=== PATIENT | female | born 1965 | race Caucasian/White ===

== ENCOUNTER 2016-08-24 17:55 | Inpatient (IN) | payer BC ==
[~2016-08-24] VITALS: Ht 170.2 cm; Wt 89.3 kg
[2016-08-24 18:03] VITALS: PULSE 103; RESP 26; TEMP 97.1; O2SAT 98
[2016-08-24 18:10] VITALS: BP 172/96; PULSE 99; RESP 26; TEMP 97.8; O2SAT 100
[2016-08-24] MEDS ORDERED: SODIUM CHLOR 0.9% 1000 ML INJ 1,000 ML IV SCH ×2 (18:15→19:36)
[2016-08-24] MEDS ORDERED: DEXT 5%-NACL 0.9% 1000 ML INJ 1,000 ML IV SCH ×2 (18:15→20:00)
[2016-08-24 18:28] LABS: BLOOD GAS VENOUS BASE EXCESS -29.3 mmol/L (-2-2); BLOOD GAS VENOUS HCO3 2 mmol/L (22-26); BLOOD GAS VENOUS O2 CONTENT 20.1 Vol % (9.0-17.0); BLOOD GAS VENOUS O2 HGB SAT 88 % (70-76); BLOOD GAS VENOUS PCO2 15 mmHg (44-48); BLOOD GAS VENOUS PO2 72 mmHg (35-40); TEMP CORR TO 98.6
[2016-08-24 18:29] LABS: BLOOD GAS VENOUS pH 6.77 (7.360-7.400); CRITICAL VALUE YES; DRAW SITE IV; LITER FLOW 2 L/M; OXYGEN DEVICE NASAL CANNULA; STAT NO
[2016-08-24] MEDS: SODIUM CHLOR 0.9% 1000 ML INJ 1,000 ML IV SCH ×5 (18:33→22:49)
--- NOTE | 2016-08-24 18:48 | PD ---
HPI Chief Complaint: Diabetic Time Seen by Provider: 18:15 Travel History International Travel<30 days: Yes Contact w/Intl Traveler<30days: Yes Name of Country Traveled to: [place] (DETAILS LACKING) Traveled to known affect area: No (UNKNOWN) History of Present Illness HPI 51yo F with PMH DM presents to the ED with c/o nausea and elevated blood glucose. Pt has had DKA before. Pt is tachypneic and appears very dry. Kussmaul breathing. Pt has just arrived from a flight today and has not been feeling well. Pt has also been to [place] recently for a mission trip. PFSH Past Medical History Diabetes: Yes Social History Tobacco Use: No Allergies-Medications (Allergen,Severity, Reaction): Coded Allergies: No Known Allergies (Unverified , 08/24/16) Review of Systems Except as stated in HPI: all other systems reviewed are Neg Physical Exam Narrative GENERAL: 51yo F in distress. SKIN: Pt appears very dry. HEAD: Atraumatic. Normocephalic. NECK: Trachea midline. No JVD. CARDIOVASCULAR: Regular rate and rhythm. No murmur appreciated. RESPIRATORY: + accessory muscle use. Clear to auscultation. Breath sounds equal bilaterally. GASTROINTESTINAL: Abdomen soft, non-tender, nondistended. No rebound tenderness or guarding. MUSCULOSKELETAL: No obvious deformities. No clubbing. No cyanosis. No edema. NEUROLOGICAL: Awake and answers questions. No obvious cranial nerve deficits. Motor grossly within normal limits. Pt is moaning but normal speech in between moans. 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 / Telemetry ANNETTA.Q8H (08/24/16 18:15) ^ Insert Iv (08/24/16 18:15) Diet Npo (08/24/16 Dinner) Lipase (08/24/16 18:15) Complete Blood Count With Diff (08/24/16 18:15) Comprehensive Metabolic Panel (08/24/16 18:15) Magnesium (Mg) (08/24/16 18:15) Phosphorus (Po4) (08/24/16 18:15) Beta Hydroxybutyrate (Acetone) (08/24/16 18:15) Sodium Chlor 0.9% 1000 Ml Inj (Ns 1000 M (08/24/16 18:15) Sodium Chlor 0.9% 1000 Ml Inj (Ns 1000 M (08/24/16 18:15) Dext 5%-Nacl 0.9% 1000 Ml Inj (D5w-Ns 10 (08/24/16 18:15) Urinalysis - C+S If Indicated (08/24/16 18:15) Chest, Single Ap (08/24/16 ) Blood Gas Venous (Vbg) (08/24/16 18:15) Lactic Acid (08/24/16 18:51) Ct Abd/Pel W Iv Contrast(Rout) (08/24/16 ) Morphine Inj (Morphine Inj) (08/24/16 19:00) Ondansetron Inj (Zofran Inj) (08/24/16 19:00) Ct Brain W/O Iv Contrast(Rout) (08/24/16 ) Isolation 08,20 (08/24/16 19:11) Blood Culture (08/24/16 19:11) Sodium Bicarbonate 8.4% Inj (Sodium Bica (08/24/16 19:15) [employer] Accountant / Telemetry ANNETTA.Q8H (08/24/16 19:36) ^ Insert Iv (08/24/16 19:36) Sodium Chlor 0.9% 1000 Ml Inj (Ns 1000 M (08/24/16 19:36) Dext 5%-Nacl 0.9% 1000 Ml Inj (D5w-Ns 10 (08/24/16 20:00) Insulin Regular (Iv Infusion) (Novolin R (08/24/16 19:45) Potassium Chlor 40 Meq Premix (Kcl 40 Me (08/24/16 19:45) Potassium Chlor 40 Meq Premix (Kcl 40 Me (08/24/16 19:45) Potassium Chlor 20 Meq Premix (Kcl 20 Me (08/24/16 19:45) Potassium Chlor 20 Meq Premix (Kcl 20 Me (08/24/16 19:45) Potassium Chlor 20 Meq Premix (Kcl 20 Me (08/24/16 19:45) Potassium Chlor 20 Meq Premix (Kcl 20 Me (08/24/16 19:45) Potassium Chlor 20 Meq Premix (Kcl 20 Me (08/24/16 19:45) Potassium Chlor 20 Meq Premix (Kcl 20 Me (08/24/16 19:45) Sodium Bicarbonate 8.4% Inj (Sodium Bica (08/24/16 19:45) Sodium Bicarbonate 8.4% Inj (Sodium Bica (08/24/16 19:45) Sodium Phosphate Inj (Sodium Phosphate I (08/24/16 19:45) Basic Metabolic Panel (Bmp) (08/25/16 06:36) Basic Metabolic Panel (Bmp) (08/25/16 12:36) Basic Metabolic Panel (Bmp) (08/25/16 18:36) Magnesium (Mg) (08/25/16 06:36) Magnesium (Mg) (08/25/16 12:36) Magnesium (Mg) (08/25/16 18:36) Phosphorus (Po4) (08/25/16 06:36) Phosphorus (Po4) (08/25/16 12:36) Phosphorus (Po4) (08/25/16 18:36) Beta Hydroxybutyrate (Acetone) (08/25/16 06:36) Beta Hydroxybutyrate (Acetone) (08/25/16 18:36) Iohexol 350 Inj (Omnipaque 350 Inj) (08/24/16 20:55) Admit Order (Ed Use Only) (08/24/16 ) Protein Corrected Calcium(Pcc) (08/25/16 07:05) Protein Corrected Calcium(Pcc) (08/25/16 13:33) Labs Laboratory Tests Test 08/24/16 08/24/16 08/24/16 08/24/16 18:15 18:25 18:35 19:30 White Blood Count 22.6 TH/MM3 Red Blood Count 5.17 MIL/MM3 Hemoglobin 15.8 GM/DL Hematocrit 50.9 % Mean Corpuscular Volume 98.4 FL Mean Corpuscular Hemoglobin 30.6 PG Mean Corpuscular Hemoglobin 31.1 % Concent Red Cell Distribution Width 14.1 % Platelet Count 241 TH/MM3 Mean Platelet Volume 8.5 FL Neutrophils (%) (Auto) 80.0 % Lymphocytes (%) (Auto) 10.0 % Monocytes (%) (Auto) 7.9 % Eosinophils (%) (Auto) 1.4 % Basophils (%) (Auto) 0.7 % Neutrophils # (Auto) 18.1 TH/MM3 Lymphocytes # (Auto) 2.3 TH/MM3 Monocytes # (Auto) 1.8 TH/MM3 Eosinophils # (Auto) 0.3 TH/MM3 Basophils # (Auto) 0.2 TH/MM3 CBC Comment AUTO DIFF Differential Total Cells 100 Counted Neutrophils % (Manual) 63 % Band Neutrophils % 16 % Lymphocytes % 14 % Monocytes % 6 % Neutrophils # (Manual) 18.1 TH/MM3 Metamyelocytes 1 % Differential Comment FINAL DIFF MANUAL Platelet Estimate NORMAL Platelet Morphology Comment NORMAL Red Cell Morphology Comment NORMAL Sodium Level 136 MEQ/L Potassium Level 3.8 MEQ/L Chloride Level 106 MEQ/L Carbon Dioxide Level 5.0 MEQ/L Anion Gap 25 MEQ/L Blood Urea Nitrogen 23 MG/DL Creatinine 1.31 MG/DL Estimat Glomerular Filtration 43 ML/MIN Rate Random Glucose 363 MG/DL Calcium Level 8.6 MG/DL Phosphorus Level 4.4 MG/DL Magnesium Level 2.6 MG/DL Total Bilirubin 0.4 MG/DL Aspartate Amino Transf 21 U/L (AST/SGOT) Alanine Aminotransferase 19 U/L (ALT/SGPT) Alkaline Phosphatase 115 U/L Total Protein 6.7 GM/DL Albumin 3.6 GM/DL Lipase 8874 U/L B-Hydroxybutyrate 10.40 MMOL/L Blood Gas Puncture Site IV Blood Gas Patient Temperature 98.6 Venous Blood pH 6.77 Venous Blood Partial Pressure 15 mmHg CO2 Venous Blood Partial Pressure 72 mmHg O2 Venous Blood HCO3 2 mmol/L Venous Blood Oxygen Saturation 88 % Venous Blood Oxygen Content 20.1 Vol % Venous Blood Base Excess -29.3 mmol/L Oxygen Delivery Device NASAL CANNULA Blood Gas Liter Flow 2 L/M Urine Color LIGHT-YELLOW Urine Turbidity HAZY Urine pH 5.5 Urine Specific [place] 1.013 Urine Protein 30 mg/dL Urine Glucose (UA) 1000 mg/dL Urine Ketones 150 mg/dL Urine Occult Blood SMALL Urine Nitrite NEG Urine Bilirubin NEG Urine Urobilinogen LESS THAN 2.0 MG/DL Urine Leukocyte Esterase NEG Urine RBC 4 /hpf Urine WBC 4 /hpf Urine Squamous Epithelial <1 /hpf Cells Urine Amorphous Sediment RARE Urine Bacteria RARE /hpf Urine Mucus FEW /lpf Microscopic Urinalysis Comment CULT NOT INDICATED Lactic Acid Level 1.6 mmol/L MDM Medical Decision Making Medical Screen Exam Complete: Yes Emergency Medical Condition: Yes Differential Diagnosis DKA vs. electrolyte abnormality vs. infection Narrative Course 51yo F with DM presents with c/o nausea, sob and appears very dehydrated. Pt is tachycardic at 103bpm. Impression is DKA and DKA protocol was started. 2 liters of NS IVF ordered. VBG, labs ordered. VBG showed severe acidosis with pH of 6.77 and HCO3 of 2. At this point, rest of labs are pending and incoming ED physician is taking over the care of this patient. Pt seen at the end of my shift and send out to next team to follow up labs and admit. Diagnosis Primary Impression: DKA (diabetic ketoacidoses) Qualified Code: E10.10 - Diabetic ketoacidosis without coma associated with type 1 diabetes mellitus Admitting Information Admitting Physician Requests: it Sarah Houston DO Aug 24, 2016 18:48
--- NOTE | 2016-08-24 18:56 | PD ---
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 [email or web address] (08/24/16 18:15) ^ Insert Iv (08/24/16 18:15) Diet Npo (08/24/16 Dinner) Lipase (08/24/16 18:15) Complete Blood Count With Diff (08/24/16 18:15) Comprehensive Metabolic Panel (08/24/16 18:15) Magnesium (Mg) (08/24/16 18:15) Phosphorus (Po4) (08/24/16 18:15) Beta Hydroxybutyrate (Acetone) (08/24/16 18:15) Sodium Chlor 0.9% 1000 Ml Inj (Ns 1000 M (08/24/16 18:15) Sodium Chlor 0.9% 1000 Ml Inj (Ns 1000 M (08/24/16 18:15) Dext 5%-Nacl 0.9% 1000 Ml Inj (D5w-Ns 10 (08/24/16 18:15) Urinalysis - C+S If Indicated (08/24/16 18:15) Chest, Single Ap (08/24/16 ) Blood Gas Venous (Vbg) (08/24/16 18:15) Lactic Acid (08/24/16 18:51) Ct Abd/Pel W Iv Contrast(Rout) (08/24/16 ) Morphine Inj (Morphine Inj) (08/24/16 19:00) Ondansetron Inj (Zofran Inj) (08/24/16 19:00) Ct Brain W/O Iv Contrast(Rout) (08/24/16 ) Isolation 08,20 (08/24/16 19:11) Blood Culture (08/24/16 19:11) Sodium Bicarbonate 8.4% Inj (Sodium Bica (08/24/16 19:15) Foil Stamp Operator / Telemetry [email or web address] (08/24/16 19:36) ^ Insert Iv (08/24/16 19:36) Diet Npo (08/25/16 Breakfast) Sodium Chlor 0.9% 1000 Ml Inj (Ns 1000 M (08/24/16 19:36) Dext 5%-Nacl 0.9% 1000 Ml Inj (D5w-Ns 10 (08/24/16 20:00) Insulin Regular (Iv Infusion) (Novolin R (08/24/16 19:45) Potassium Chlor 40 Meq Premix (Kcl 40 Me (08/24/16 19:45) Potassium Chlor 40 Meq Premix (Kcl 40 Me (08/24/16 19:45) Potassium Chlor 20 Meq Premix (Kcl 20 Me (08/24/16 19:45) Potassium Chlor 20 Meq Premix (Kcl 20 Me (08/24/16 19:45) Potassium Chlor 20 Meq Premix (Kcl 20 Me (08/24/16 19:45) Potassium Chlor 20 Meq Premix (Kcl 20 Me (08/24/16 19:45) Potassium Chlor 20 Meq Premix (Kcl 20 Me (08/24/16 19:45) Potassium Chlor 20 Meq Premix (Kcl 20 Me (08/24/16 19:45) Sodium Bicarbonate 8.4% Inj (Sodium Bica (08/24/16 19:45) Sodium Bicarbonate 8.4% Inj (Sodium Bica (08/24/16 19:45) Sodium Phosphate Inj (Sodium Phosphate I (08/24/16 19:45) Basic Metabolic Panel (Bmp) (08/25/16 00:36) Basic Metabolic Panel (Bmp) (08/25/16 06:36) Basic Metabolic Panel (Bmp) (08/25/16 12:36) Basic Metabolic Panel (Bmp) (08/25/16 18:36) Magnesium (Mg) (08/25/16 00:36) Magnesium (Mg) (08/25/16 06:36) Magnesium (Mg) (08/25/16 12:36) Magnesium (Mg) (08/25/16 18:36) Phosphorus (Po4) (08/25/16 00:36) Phosphorus (Po4) (08/25/16 06:36) Phosphorus (Po4) (08/25/16 12:36) Phosphorus (Po4) (08/25/16 18:36) Beta Hydroxybutyrate (Acetone) (08/25/16 06:36) Beta Hydroxybutyrate (Acetone) (08/25/16 18:36) Iohexol 350 Inj (Omnipaque 350 Inj) (08/24/16 20:55) Admit Order (Ed Use Only) (08/24/16 ) Labs Laboratory Tests Test 08/24/16 08/24/16 08/24/16 08/24/16 18:15 18:25 18:35 19:30 White Blood Count 22.6 TH/MM3 Red Blood Count 5.17 MIL/MM3 Hemoglobin 15.8 GM/DL Hematocrit 50.9 % Mean Corpuscular Volume 98.4 FL Mean Corpuscular Hemoglobin 30.6 PG Mean Corpuscular Hemoglobin 31.1 % Concent Red Cell Distribution Width 14.1 % Platelet Count 241 TH/MM3 Mean Platelet Volume 8.5 FL Neutrophils (%) (Auto) 80.0 % Lymphocytes (%) (Auto) 10.0 % Monocytes (%) (Auto) 7.9 % Eosinophils (%) (Auto) 1.4 % Basophils (%) (Auto) 0.7 % Neutrophils # (Auto) 18.1 TH/MM3 Lymphocytes # (Auto) 2.3 TH/MM3 Monocytes # (Auto) 1.8 TH/MM3 Eosinophils # (Auto) 0.3 TH/MM3 Basophils # (Auto) 0.2 TH/MM3 CBC Comment AUTO DIFF Differential Total Cells 100 Counted Neutrophils % (Manual) 63 % Band Neutrophils % 16 % Lymphocytes % 14 % Monocytes % 6 % Neutrophils # (Manual) 18.1 TH/MM3 Metamyelocytes 1 % Differential Comment FINAL DIFF MANUAL Platelet Estimate NORMAL Platelet Morphology Comment NORMAL Red Cell Morphology Comment NORMAL Sodium Level 136 MEQ/L Potassium Level 3.8 MEQ/L Chloride Level 106 MEQ/L Carbon Dioxide Level 5.0 MEQ/L Anion Gap 25 MEQ/L Blood Urea Nitrogen 23 MG/DL Creatinine 1.31 MG/DL Estimat Glomerular Filtration 43 ML/MIN Rate Random Glucose 363 MG/DL Calcium Level 8.6 MG/DL Phosphorus Level 4.4 MG/DL Magnesium Level 2.6 MG/DL Total Bilirubin 0.4 MG/DL Aspartate Amino Transf 21 U/L (AST/SGOT) Alanine Aminotransferase 19 U/L (ALT/SGPT) Alkaline Phosphatase 115 U/L Total Protein 6.7 GM/DL Albumin 3.6 GM/DL Lipase 8874 U/L B-Hydroxybutyrate 10.40 MMOL/L Blood Gas Puncture Site IV Blood Gas Patient Temperature 98.6 Venous Blood pH 6.77 Venous Blood Partial Pressure 15 mmHg CO2 Venous Blood Partial Pressure 72 mmHg O2 Venous Blood HCO3 2 mmol/L Venous Blood Oxygen Saturation 88 % Venous Blood Oxygen Content 20.1 Vol % Venous Blood Base Excess -29.3 mmol/L Oxygen Delivery Device NASAL CANNULA Blood Gas Liter Flow 2 L/M Urine Color LIGHT-YELLOW Urine Turbidity HAZY Urine pH 5.5 Urine Specific [place] 1.013 Urine Protein 30 mg/dL Urine Glucose (UA) 1000 mg/dL Urine Ketones 150 mg/dL Urine Occult Blood SMALL Urine Nitrite NEG Urine Bilirubin NEG Urine Urobilinogen LESS THAN 2.0 MG/DL Urine Leukocyte Esterase NEG Urine RBC 4 /hpf Urine WBC 4 /hpf Urine Squamous Epithelial <1 /hpf Cells Urine Amorphous Sediment RARE Urine Bacteria RARE /hpf Urine Mucus FEW /lpf Microscopic Urinalysis Comment CULT NOT INDICATED Lactic Acid Level 1.6 mmol/L MDM Supervised Visit with BRIANNA: No Interpretation(s) EKG is limited secondary to motion artifact, normal axis and normal R-wave progression. Sinus tachycardia rate of 102. Intervals within normal limits otherwise. No obvious ST-T segment changes and no changes consistent with hyperkalemia. This is an abnormal EKG. Differential Diagnosis DKA, lactic acidosis, acute abdomen, mild mental status change. Narrative Course Patient care assumed from Dr. Houston at 1900. This is a diabetic patient presents with abdominal pain for the past two days. She states she does not take insulin. pH obtained by VBG prior to my arrival is 6.7. She has received 1L bolus prior to my arrival. Second L bolus in progress. She is moaning and rolling back and forth in stretcher on my arrival. Appears dehydrated (loss of skin turgor, parched mucous membranes, Tachycardia). No hypotension. Patient's labs revealed patient is in rather severe DKA with a pH is 6.7, bicarbonate of 5, anion gap of 25. Lactic acid 1.6. Lipase of 8800. Patient had CT of head and abdomen both of which showed no acute disease. She remains a GCS of 14 for some mild confusion in the emergency department. Patient was given 1 amp bicarbonate, 2 L of fluid, third liter was started at 250 cc an hour. Insulin drip was started, minimally with potassium as the patient's potassium is 3.8. Patient was discussed with Dr. Suh for admission to the ICU. Critical Care Narrative Aggregate critical care time was 35 minutes. Time to perform other separately billable procedures was not included in the critical care time. My time did not include minutes spent treating any other patients simultaneously or on activities that did not directly contribute to the patient's treatment. The services I provided to this patient were to treat and/or prevent clinically significant deterioration that could result in: , disability and organ failure. I provided critical care services requiring my management, as noted below: Chart data review, documentation time, medication orders and management, vital sign assessments/reviewing monitor data, ordering and reviewing lab tests, ordering and interpreting/reviewing x-rays and diagnostic studies, care of the patient and discussion of the patient with the admitting physicians. Diagnosis Primary Impression: DKA (diabetic ketoacidoses) Qualified Code: E10.10 - Diabetic ketoacidosis without coma associated with type 1 diabetes mellitus Admitting Information Admitting Physician Requests: Admit Condition: Critical Matt Wasserman MD Aug 24, 2016 18:55
[2016-08-24] MEDS ORDERED: MORPHINE SULFATE 4 MG/ML INJ IV PUSH ONE (19:00)
[2016-08-24] MEDS ORDERED: ONDANSETRON HCL 4 MG/2 ML VIAL IV PUSH ONE (19:00)
[2016-08-24 19:01] LABS: AUTOMATED NEUTROPHIL # 18.1 TH/MM3 (1.8-7.7); BASOPHIL # 0.2 TH/MM3 (0-0.2); BASOPHIL % 0.7 % (0.0-2.0); EOSINOPHIL # 0.3 TH/MM3 (0-0.4); EOSINOPHIL % 1.4 % (0.0-4.0); HEMATOCRIT 50.9 % (35.0-46.0); LYMPHOCYTE # 2.3 TH/MM3 (1.0-4.8); MEAN CELL VOLUME 98.4 FL (80.0-100.0); MEAN CORPUSCULAR HEMOGLOBIN 30.6 PG (27.0-34.0); MEAN CORPUSCULAR HGB CONC 31.1 % (32.0-36.0); MONO % 7.9 % (0.0-8.0); PLATELET COUNT 241 TH/MM3 (150-450); RED BLOOD COUNT 5.17 MIL/MM3 (4.00-5.30); RED CELL DISTRIBUTION WIDTH 14.1 % (11.6-17.2); WHITE BLOOD COUNT 22.6 TH/MM3 (4.0-11.0)
[2016-08-24 19:09] LABS: BACTERIA, URINE RARE /hpf; BLOOD, URINE SMALL (NEG); COMMENT (UR) CULT NOT INDICATED; CULTURE IF INDICATED CULT NOT INDICATED; GLUCOSE,URINE 1000 mg/dL (NEG); KETONE, URINE 150 mg/dL (NEG); MUCUS URINE FEW /lpf (OCC); NITRITE,URINE NEG (NEG); PH, URINE 5.5 (5.0-8.5); SQUAMOUS EPITHELIAL CELL URINE <1 /hpf (0-5); URINE COLOR LIGHT-YELLOW (YELLW/STRAW)
[2016-08-24] MEDS ORDERED: SODIUM BICARBONATE 8.4% INJ 50 MEQ/50 ML SYR IV PUSH ONE (19:15)
[2016-08-24 19:20] LABS: HEMO FLAGS AUTO DIFF
[2016-08-24 19:24] LABS: ANION GAP 25 MEQ/L (5-15)
[2016-08-24 19:29] LABS: BANDS 16 % (0-6); METAMYELOCYTES 1 % (0-1); NEUTROPHIL # MANUAL DIFF 18.1 TH/MM3 (1.8-7.7); PLATELET ESTIMATE SMEAR NORMAL (NORMAL); PLATELET MORPHOLOGY NORMAL (NORMAL); POLYS (SEG NEUTROPHILS) 63 % (16-70); SCAN/DIFF FINAL DIFF MANUAL; WBC DIFF SAMPLE 100
[2016-08-24 19:33] VITALS: BP 168/96; PULSE 106; RESP 30; O2SAT 100
[2016-08-24 19:35] LABS: ALKALINE PHOSPHATASE 115 U/L (45-117); ALT (GPT) 19 U/L (10-53); AST (GOT) 21 U/L (15-37); BLOOD UREA NITROGEN 23 MG/DL (7-18); CHLORIDE 106 MEQ/L (98-107); GLOMERULAR FILTRATION RATE 43 ML/MIN (>89); MAGNESIUM 2.6 MG/DL (1.5-2.5); POTASSIUM 3.8 MEQ/L (3.5-5.1); SODIUM (NA) 136 MEQ/L (136-145); TOTAL BILIRUBIN ADULT 0.4 MG/DL (0.2-1.0)
[2016-08-24] MEDS ORDERED: POTASSIUM CHLOR 20 MEQ PREMIX 100 ML IV PRN ×12 (19:45→22:00)
[2016-08-24] MEDS ORDERED: SODIUM PHOSPHATE INJ 15 MMOL in SODIUM CHLORIDE 0.9% INJ 100 ML IV PRN ×2 (19:45→22:00)
[2016-08-24] MEDS ORDERED: INSULIN REGULAR (IV INFUSION) 100 UNITS in SODIUM CHLORIDE 0.9% INJ 99 ML IV SCH ×2 (19:45→22:00)
[2016-08-24] MEDS ORDERED: SODIUM BICARBONATE 8.4% SOLN 50 MEQ/50 ML VIAL IV PRN ×4 (19:45→22:00)
[2016-08-24] MEDS ORDERED: POTASSIUM CHLOR 40 MEQ PREMIX 100 ML IV PRN ×4 (19:45→22:00)
--- NOTE | 2016-08-24 19:51 | RADRPT ---
EXAM DATE/TIME: 08/24/2016 18:55 [facility] COMPARISON: No previous studies available for comparison. INDICATIONS : Short of breath. MEDICAL HISTORY : None. SURGICAL HISTORY : None. ENCOUNTER: Initial ACUITY: 1 day PAIN SCORE: Non-responsive. LOCATION: Bilateral chest FINDINGS: The lungs are clear without infiltrate, nodule, or mass. There is no appreciable pleural effusion fo r technique. Heart and mediastinum are unremarkable. The examination is slightly limited due to lorie on artifact. CONCLUSION: No acute cardiopulmonary disease. Jesus Ferreira MD on August 24, 2016 at 19:49 Board Certified Radiologist. This report was verified electronically.
[2016-08-24 20:00] VITALS: BP 138/73; PULSE 108; RESP 18; O2SAT 100
--- NOTE | 2016-08-24 20:53 | RADRPT ---
EXAM DATE/TIME: 08/24/2016 20:35 [facility] COMPARISON: No previous studies available for comparison. INDICATIONS : Altered mental status. RADIATION DOSE: 56.35 CTDIvol (mGy) MEDICAL HISTORY : None SURGICAL HISTORY : None. ENCOUNTER: Initial ACUITY: 1 day PAIN SCALE: 3/10 LOCATION: cranial TECHNIQUE: Multiple contiguous axial images were obtained of the head. Using automated exposure control and adjustment of the mA and/or kV according to patient size, radiation dose was kept as low as reasonably achievable to obtain optimal diagnostic quality images. FINDINGS: There is no evidence for intracranial hemorrhage, mass effect, mass lesions, edema, or extra-axial fl uid collections. The visualized bony structures appear intact. The ventricles are normal size for t he patient's age. There are no signs of acute infarction for technique. CONCLUSION: Unremarkable study. Jesus Ferreira MD on August 24, 2016 at 20:51 Board Certified Radiologist. This report was verified electronically.
[2016-08-24] MEDS ORDERED: IOHEXOL 350 MG/ML 10 ML VIAL (for RAD DIAG) IV ONE (20:55)
[2016-08-24 21:01] VITALS: BP 123/67; PULSE 103; RESP 25; O2SAT 100
[2016-08-24 21:10] VITALS: BP 114/64; PULSE 101; RESP 25; O2SAT 100
--- NOTE | 2016-08-24 21:53 | HHI.HP ---
HPI Service Critical Care Medicine Primary Care Physician Unknown Admission Diagnosis DKA, Severe Diagnosis: Travel History International Travel<30 Days: Yes Contact w/Intl Traveler <30 Da: Yes Name of Country Traveled to: [place] (DETAILS LACKING) Traveled to Known Affected Are: No (UNKNOWN) History of Present Illness Rectal history of type 1 diabetes presents to emergency department complaining of nausea vomiting and abdominal pain also elevated blood glucose. Patient was tachypneic and appeared very drowsy and was intubated by ED physician for an airway protection. 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 of Systems ROS Unable to obtain patient is sedated and intubated Past Family Social History Allergies: Coded Allergies: No Known Allergies (Unverified , 08/24/16) Past Medical History Diabetes insulin-dependent Past Surgical History Unable to obtain Active Ordered Medications Current Medications Medications (Trade) Dose Ordered Sig/Billie Route PRN Reason Start Time Stop Time Status Last Admin Dose Admin Sodium Chloride 1,000 ml @ 250 mls/hr Q4H IV 08/24/16 21:49 Dextrose/Sodium Chloride 1,000 ml @ 200 mls/hr Q5H IV 08/24/16 21:49 Insulin Human Regular 100 units/ Sodium Chloride 100 ml @ 0 mls/hr TITRATE IV 08/24/16 22:00 Potassium Chloride 100 ml @ 100 mls/hr Q1H PRN IV SEE LABEL COMMENTS 08/24/16 22:00 Potassium Chloride 100 ml @ 50 mls/hr Q2H PRN IV SEE LABEL COMMENTS 08/24/16 22:00 Potassium Chloride 100 ml @ 100 mls/hr Q1H PRN IV SEE LABEL COMMENTS 08/24/16 22:00 Potassium Chloride 100 ml @ 100 mls/hr Q1H PRN IV SEE LABEL COMMENTS 08/24/16 22:00 Potassium Chloride 100 ml @ 50 mls/hr Q2H PRN IV SEE LABEL COMMENTS 08/24/16 22:00 Potassium Chloride 100 ml @ 50 mls/hr Q2H PRN IV SEE LABEL COMMENTS 08/24/16 22:00 Potassium Chloride 100 ml @ 50 mls/hr Q2H PRN IV SEE LABEL COMMENTS 08/24/16 22:00 Potassium Chloride (KCl 20 Meq Premix Inj) 100 ml @ 50 mls/hr Q2H PRN IV SEE LABEL COMMENTS 08/24/16 22:00 Sodium Bicarbonate (Sodium Bicarbonate 8.4% Inj) 100 meq UNSCH PRN IV SEE LABEL COMMENTS 08/24/16 22:00 Sodium Bicarbonate 50 meq 50 meq UNSCH PRN IV SEE LABEL COMMENTS 08/24/16 22:00 Sodium Phosphate/ Sodium Chloride (Sodium Phosphate Inj/NS Inj) 105 ml @ 25 mls/hr UNSCH PRN IV SEE LABEL COMMENTS 08/24/16 22:00 Miscellaneous Information 1 [id number] XX 08/24/16 22:00 Chlorhexidine Gluconate (Chlorhexidine 2% Cloth) 3 pack Taper DAILY@04 TOP 08/25/16 04:00 08/21/17 03:59 Chlorhexidine Gluconate 3 pack 3 pack UNSCH PRN TOP HYGIENIC CARE 08/24/16 22:00 Propofol 100 ml @ 0 mls/hr TITRATE IV 08/25/16 02:00 08/25/16 02:10 Midazolam HCl (Versed Inj) 100 ml @ 0 mls/hr TITRATE IV 08/25/16 02:30 Family History Unable to obtain Social History Unable to obtain Physical Exam Vital Signs Vital Signs Date Time Temp Pulse Resp B/P Pulse Ox O2 Delivery O2 Flow Rate FiO2 08/24/16 19:33 106 30 168/96 100 Room Air 08/24/16 18:15 16 99 Nasal Cannula 2 08/24/16 18:10 97.8 99 26 172/96 100 Room Air 08/24/16 18:03 97.1 103 26 98 Laboratory Laboratory Tests Test 08/24/16 08/24/16 08/24/16 08/24/16 18:15 18:25 18:35 19:30 White Blood Count 22.6 Red Blood Count 5.17 Hemoglobin 15.8 Hematocrit 50.9 Mean Corpuscular Volume 98.4 Mean Corpuscular Hemoglobin 30.6 Mean Corpuscular Hemoglobin 31.1 Concent Red Cell Distribution Width 14.1 Platelet Count 241 Mean Platelet Volume 8.5 Neutrophils (%) (Auto) 80.0 Lymphocytes (%) (Auto) 10.0 Monocytes (%) (Auto) 7.9 Eosinophils (%) (Auto) 1.4 Basophils (%) (Auto) 0.7 Neutrophils # (Auto) 18.1 Lymphocytes # (Auto) 2.3 Monocytes # (Auto) 1.8 Eosinophils # (Auto) 0.3 Basophils # (Auto) 0.2 CBC Comment AUTO DIFF Differential Total Cells 100 Counted Neutrophils % (Manual) 63 Band Neutrophils % 16 Lymphocytes % 14 Monocytes % 6 Neutrophils # (Manual) 18.1 Metamyelocytes 1 Differential Comment FINAL DIFF MANUAL Platelet Estimate NORMAL Platelet Morphology Comment NORMAL Red Cell Morphology Comment NORMAL Sodium Level 136 Potassium Level 3.8 Chloride Level 106 Carbon Dioxide Level 5.0 Anion Gap 25 Blood Urea Nitrogen 23 Creatinine 1.31 Estimat Glomerular Filtration 43 Rate Random Glucose 363 Calcium Level 8.6 Phosphorus Level 4.4 Magnesium Level 2.6 Total Bilirubin 0.4 Aspartate Amino Transf 21 (AST/SGOT) Alanine Aminotransferase 19 (ALT/SGPT) Alkaline Phosphatase 115 Total Protein 6.7 Albumin 3.6 Lipase 8874 B-Hydroxybutyrate 10.40 Blood Gas Puncture Site IV Blood Gas Patient Temperature 98.6 Venous Blood pH 6.77 Venous Blood Partial Pressure 15 CO2 Venous Blood Partial Pressure 72 O2 Venous Blood HCO3 2 Venous Blood Oxygen Saturation 88 Venous Blood Oxygen Content 20.1 Venous Blood Base Excess -29.3 Oxygen Delivery Device NASAL CANNULA Blood Gas Liter Flow 2 Urine Color LIGHT-YELLOW Urine Turbidity HAZY Urine pH 5.5 Urine Specific [place] 1.013 Urine Protein 30 Urine Glucose (UA) 1000 Urine Ketones 150 Urine Occult Blood SMALL Urine Nitrite NEG Urine Bilirubin NEG Urine Urobilinogen LESS THAN 2.0 Urine Leukocyte Esterase NEG Urine RBC 4 Urine WBC 4 Urine Squamous Epithelial <1 Cells Urine Amorphous Sediment RARE Urine Bacteria RARE Urine Mucus FEW Microscopic Urinalysis Comment CULT NOT INDICATED Lactic Acid Level 1.6 Date/Time Procedure Status Source Growth 08/24/16 19:30 Aerobic Blood Culture Received Blood Peripheral Pending 08/24/16 19:30 Anaerobic Blood Culture Received Blood Peripheral Pending Result Diagram: 08/24/16 1815 08/24/16 1815 Assessment and Plan Assessment and Plan Respiratory failure - Debated for an airway protection - Start weaning when neurologically improved and acidosis resolved Altered mental status - Metabolic toxic encephalopathy - Severe metabolic acidosis - Due to DKA - Monitor neuro checks - CT head negative DKA - Insulin drip and IV hydration per ICU protocol Leukocytosis - Most probably reactive - Monitor trend - Patient is afebrile we'll hold antibiotics for now DVT GI prophylaxis - Subcutaneous heparin and IV Pepcid Critical Care: The total critical care time was 35 minutes. Time to perform other separately billable procedures was not included in the critical care time. Hector Suh MD Aug 24, 2016 21:53
[2016-08-24] MEDS ORDERED: MISCELLANEOUS NURSING INFORMATION XX SCH (22:00)
[2016-08-24] MEDS ORDERED: CHLORHEXIDINE GLUCONATE 2 % 1 PACK (2 CLOTHS) TOP PRN (22:00)
--- NOTE | 2016-08-24 22:14 | RADRPT ---
EXAM DATE/TIME: 08/24/2016 20:45 [facility] COMPARISON: CT ABDOMEN & PELVIS W CONTRAST, August 24, 2016, 18:47. INDICATIONS : Altered mental status and abdominal pain. IV CONTRAST: 100 cc Omnipaque 350 (iohexol) IV ORAL CONTRAST: No oral contrast ingested. RADIATION DOSE: CTDIvol (mGy) MEDICAL HISTORY : Diabetes mellitus type 1. Pancreatic insufficiency. SURGICAL HISTORY : None. ENCOUNTER: Initial ACUITY: 1 day PAIN SCALE: 4/10 LOCATION: Bilateral lower quadrant TECHNIQUE: Volumetric scanning of the abdomen and pelvis was performed. Using automated exposure control and adjustment of the mA and/or kV according to patient size, radiation dose was kept as low as reasonably achievable to obtain optimal diagnostic quality images. FINDINGS: CT Abdomen: The liver, spleen, pancreas, kidneys, adrenals are unremarkable. There is no evidence for any appreciable pathological adenopathy, free fluid, or bowel obstruction. The examination is sligh tly limited due to motion artifact. There is either motion artifact or 2 small areas of almost 1 cm c onsolidation in the left lower lobe laterally. CT pelvis: There is no evidence for mass, abscess formation, or any significant adenopathy within the pelvis. There is moderate amount of stool throughout the colon. CONCLUSION: There is moderate amount of stool throughout the colon and limited examination due to motion artifact. Possible focal areas of consolidation left lung base versus artifact. Jesus Ferreira MD on August 24, 2016 at 21:02 Board Certified Radiologist. This report was verified electronically.
[2016-08-24] MEDS ORDERED: PROPOFOL 1000 MG/100 ML INJ 100 ML ONE (23:21)
[2016-08-24] MEDS ORDERED: ROCURONIUM INJ 50 MG/5 ML VIAL IV ONE (23:30)
[2016-08-24] MEDS ORDERED: ETOMIDATE 20 MG/10 ML VIAL IV PUSH ONE (23:30)
--- NOTE | 2016-08-24 23:59 | RADRPT ---
EXAM DATE/TIME: 08/24/2016 23:47 [facility] COMPARISON: CHEST SINGLE AP, August 24, 2016, 18:55. INDICATIONS : Post intubation. MEDICAL HISTORY : Diabetes mellitus type 1. Pancreatic insufficiency. SURGICAL HISTORY : None. ENCOUNTER: Subsequent ACUITY: 2 days PAIN SCORE: Non-responsive. LOCATION: Bilateral chest FINDINGS: A single portable frontal view the chest shows an endotracheal tube with the tip at the martha. Left lower lobe intra-alveolar infiltrate is now seen. A tiny left effusion is suspected. Right lung is cl ear. Heart is normal in size. Bony structures are unremarkable. CONCLUSION: 1. Tip of the endotracheal tube at the level of the martha. Suggest retracting it 1-2 cm. 2. New left lower lobe infiltrate and tiny left effusion. Manish Harvey Jr., MD on August 24, 2016 at 23:57 Board Certified Radiologist. This report was verified electronically.
[2016-08-25] VITALS (22 sets, daily range): BP systolic 91–131; BP diastolic 50–84; PULSE 91–113; RESP 1–16; TEMP 91.8–100; O2SAT 95–100
[2016-08-25 00:36] LABS: BLOOD GAS BASE EXCESS -28.5 mmol/L (-2-2); BLOOD GAS CARBOXYHEMOGLOBIN 0.1 % (0-4); BLOOD GAS HCO3 3 mmol/L (22-26); BLOOD GAS METHEMOGLOBIN 1.4 % (0-2); BLOOD GAS O2 HGB SATURATION 97 % (90-100); BLOOD GAS OXYGEN CONTENT 23.2 Vol % (12.0-20.0); BLOOD GAS PCO2 29 mmHg (38-42); BLOOD GAS PO2 377 mmHG (61-120); BLOOD GAS TOTAL HGB 16.4 G/DL (12.0-16.0); TEMP CORR TO 98.6
[2016-08-25 00:37] LABS: CRITICAL VALUE YES; FIO2 100 %; OXYGEN DEVICE VENTILATOR; VENT SETTINGS 12/500/PEEP5
[2016-08-25 00:38] LABS: DRAW SITE lr; NUMBER OF ARTERIAL PUNCTURES 2; STAT YES
[2016-08-25] MEDS ORDERED: SODIUM BICARBONATE 8.4% INJ 50 MEQ/50 ML SYR IV PUSH ONE ×2 (00:45→10:30)
[2016-08-25] MEDS ORDERED: SODIUM CHLOR 0.9% 1000 ML INJ 1,000 ML IV ONE ×3 (00:45)
[2016-08-25] MEDS ORDERED: SODIUM BICARBONATE 8.4% INJ 50 ML ONE (00:46)
[2016-08-25] MEDS: PROPOFOL 1000 MG/100 ML INJ 100 ML IV SCH ×2 (02:10→04:16)
[2016-08-25] MEDS ORDERED: MIDAZOLAM 100 MG/ML INJ 100 ML IV SCH (02:30)
[2016-08-25] MEDS: CHLORHEXIDINE GLUCONATE 2 % 1 PACK (2 CLOTHS) TOP SCH (04:00)
[2016-08-25] MEDS: SODIUM CHLOR 0.9% 1000 ML INJ 1,000 ML IV SCH ×2 (04:17→13:49)
[2016-08-25] MEDS: DEXT 5%-NACL 0.9% 1000 ML INJ 1,000 ML IV SCH ×3 (04:24→13:13)
[2016-08-25 05:28] LABS: BICARBONATE 6.5 MEQ/L (21.0-32.0); MAGNESIUM 2.2 MG/DL (1.5-2.5); POTASSIUM 3.7 MEQ/L (3.5-5.1)
[2016-08-25 08:56] LABS: BETA-HYDROXYBUTYRATE 3.76 MMOL/L (0.00-0.39); BICARBONATE 9.1 MEQ/L (21.0-32.0); MAGNESIUM 1.7 MG/DL (1.5-2.5); POTASSIUM 3.5 MEQ/L (3.5-5.1)
[2016-08-25 09:18] LABS: CALCIUM-PROTEIN CORRECTED 8.7 MG/DL (8.5-10.1)
[2016-08-25] MEDS ORDERED: VANCOMYCIN INJ 1,000 MG in SODIUM CHLOR 0.9% 250 ML INJ 250 ML IV ONE (10:00)
[2016-08-25 10:04] LABS: BLOOD GAS BASE EXCESS -18.6 mmol/L (-2-2); BLOOD GAS CARBOXYHEMOGLOBIN 1.3 % (0-4); BLOOD GAS HCO3 8 mmol/L (22-26); BLOOD GAS METHEMOGLOBIN 1.8 % (0-2); BLOOD GAS O2 HGB SATURATION 96 % (90-100); BLOOD GAS OXYGEN CONTENT 18.9 Vol % (12.0-20.0); BLOOD GAS PCO2 23 mmHg (38-42); BLOOD GAS PO2 240 mmHg (61-120); BLOOD GAS TOTAL HGB 13.6 G/DL (12.0-16.0); TEMP CORR TO 98.6
[2016-08-25 10:07] LABS: CRITICAL VALUE YES; DRAW SITE RT RADIAL; FIO2 50 %; NUMBER OF ARTERIAL PUNCTURES 1; OXYGEN DEVICE VENTILATOR; STAT NO; ULNAR PULSE PRESENT; VENT SETTINGS 500/AC12/PEEP5
[2016-08-25 10:08] LABS: AUTOMATED NEUTROPHIL # 9.1 TH/MM3 (1.8-7.7); BASOPHIL # 0.1 TH/MM3 (0-0.2); BASOPHIL % 0.7 % (0.0-2.0); HEMATOCRIT 40.8 % (35.0-46.0); LYMPH % 6.3 % (9.0-44.0); LYMPHOCYTE # 0.7 TH/MM3 (1.0-4.8); MEAN CELL VOLUME 91.9 FL (80.0-100.0); MEAN CORPUSCULAR HEMOGLOBIN 31.9 PG (27.0-34.0); MEAN CORPUSCULAR HGB CONC 34.7 % (32.0-36.0); PLATELET COUNT 140 TH/MM3 (150-450); RED BLOOD COUNT 4.44 MIL/MM3 (4.00-5.30); RED CELL DISTRIBUTION WIDTH 13.7 % (11.6-17.2); WHITE BLOOD COUNT 10.8 TH/MM3 (4.0-11.0)
--- NOTE | 2016-08-25 10:09 | HHI.CCPN ---
Subjective Remarks/Hospital Course history of type 1 diabetes presents to emergency department complaining of nausea vomiting and abdominal pain also elevated blood glucose. Patient was tachypneic and appeared very drowsy and was intubated by ED physician for an airway protection. 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 Afebrile. On Insulin drip 11units/hr. Objective Vital Signs Date Time Temp Pulse Resp B/P Pulse Ox O2 Delivery O2 Flow Rate FiO2 08/25/16 08:44 100 50 08/25/16 06:00 103 08/25/16 04:00 95.8 16 91/56 08/25/16 01:48 Ventilator 08/24/16 18:15 2 Result Diagram: 08/24/16 1815 08/25/16 0705 Other Results Laboratory Tests Test 08/24/16 08/24/16 08/24/16 08/24/16 18:15 18:25 18:35 19:30 White Blood Count 22.6 TH/MM3 Red Blood Count 5.17 MIL/MM3 Hemoglobin 15.8 GM/DL Hematocrit 50.9 % Mean Corpuscular Volume 98.4 FL Mean Corpuscular Hemoglobin 30.6 PG Mean Corpuscular Hemoglobin 31.1 % Concent Red Cell Distribution Width 14.1 % Platelet Count 241 TH/MM3 Mean Platelet Volume 8.5 FL Neutrophils (%) (Auto) 80.0 % Lymphocytes (%) (Auto) 10.0 % Monocytes (%) (Auto) 7.9 % Eosinophils (%) (Auto) 1.4 % Basophils (%) (Auto) 0.7 % Neutrophils # (Auto) 18.1 TH/MM3 Lymphocytes # (Auto) 2.3 TH/MM3 Monocytes # (Auto) 1.8 TH/MM3 Eosinophils # (Auto) 0.3 TH/MM3 Basophils # (Auto) 0.2 TH/MM3 CBC Comment AUTO DIFF Differential Total Cells 100 Counted Neutrophils % (Manual) 63 % Band Neutrophils % 16 % Lymphocytes % 14 % Monocytes % 6 % Neutrophils # (Manual) 18.1 TH/MM3 Metamyelocytes 1 % Differential Comment FINAL DIFF MANUAL Platelet Estimate NORMAL Platelet Morphology Comment NORMAL Red Cell Morphology Comment NORMAL Sodium Level 136 MEQ/L Potassium Level 3.8 MEQ/L Chloride Level 106 MEQ/L Carbon Dioxide Level 5.0 MEQ/L Anion Gap 25 MEQ/L Blood Urea Nitrogen 23 MG/DL Creatinine 1.31 MG/DL Estimat Glomerular Filtration 43 ML/MIN Rate Random Glucose 363 MG/DL Calcium Level 8.6 MG/DL Phosphorus Level 4.4 MG/DL Magnesium Level 2.6 MG/DL Total Bilirubin 0.4 MG/DL Aspartate Amino Transf 21 U/L (AST/SGOT) Alanine Aminotransferase 19 U/L (ALT/SGPT) Alkaline Phosphatase 115 U/L Total Protein 6.7 GM/DL Albumin 3.6 GM/DL Lipase 8874 U/L B-Hydroxybutyrate 10.40 MMOL/L Blood Gas Puncture Site IV Blood Gas Patient Temperature 98.6 Venous Blood pH 6.77 Venous Blood Partial Pressure 15 mmHg CO2 Venous Blood Partial Pressure 72 mmHg O2 Venous Blood HCO3 2 mmol/L Venous Blood Oxygen Saturation 88 % Venous Blood Oxygen Content 20.1 Vol % Venous Blood Base Excess -29.3 mmol/L Oxygen Delivery Device NASAL CANNULA Blood Gas Liter Flow 2 L/M Urine Color LIGHT-YELLOW Urine Turbidity HAZY Urine pH 5.5 Urine Specific [place] 1.013 Urine Protein 30 mg/dL Urine Glucose (UA) 1000 mg/dL Urine Ketones 150 mg/dL Urine Occult Blood SMALL Urine Nitrite NEG Urine Bilirubin NEG Urine Urobilinogen LESS THAN 2.0 MG/DL Urine Leukocyte Esterase NEG Urine RBC 4 /hpf Urine WBC 4 /hpf Urine Squamous Epithelial <1 /hpf Cells Urine Amorphous Sediment RARE Urine Bacteria RARE /hpf Urine Mucus FEW /lpf Microscopic Urinalysis Comment CULT NOT INDICATED Lactic Acid Level 1.6 mmol/L Test 08/24/16 08/25/16 08/25/16 08/25/16 23:41 00:18 02:40 04:23 Lactic Acid Level 0.7 mmol/L Blood Gas Puncture Site lr Blood Gas Patient Temperature 98.6 Blood Gas HCO3 3 mmol/L Blood Gas Base Excess -28.5 mmol/L Blood Gas Oxygen Saturation 97 % Arterial Blood pH 6.70 Arterial Blood Partial 29 mmHg Pressure CO2 Arterial Blood Partial 377 mmHG Pressure O2 Arterial Blood Oxygen Content 23.2 Vol % Arterial Blood 0.1 % Carboxyhemoglobin Arterial Blood Methemoglobin 1.4 % Blood Gas Hemoglobin 16.4 G/DL Oxygen Delivery Device VENTILATOR Blood Gas Ventilator Setting 12/500/PEEP5 Blood Gas Inspired Oxygen 100 % Nasal Screen MRSA (PCR) NEGATIVE Sodium Level 147 MEQ/L Potassium Level 3.7 MEQ/L Chloride Level 118 MEQ/L Carbon Dioxide Level 6.5 MEQ/L Anion Gap 23 MEQ/L Blood Urea Nitrogen 26 MG/DL Creatinine 1.33 MG/DL Estimat Glomerular Filtration 42 ML/MIN Rate Random Glucose 247 MG/DL Calcium Level 7.7 MG/DL Phosphorus Level 2.7 MG/DL Magnesium Level 2.2 MG/DL Test 08/25/16 07:05 Sodium Level 146 MEQ/L Potassium Level 3.5 MEQ/L Chloride Level 121 MEQ/L Carbon Dioxide Level 9.1 MEQ/L Anion Gap 16 MEQ/L Blood Urea Nitrogen 26 MG/DL Creatinine 1.56 MG/DL Estimat Glomerular Filtration 35 ML/MIN Rate Random Glucose 233 MG/DL Calcium Level 7.3 MG/DL Protein Corrected Calcium 8.7 MG/DL Phosphorus Level 1.1 MG/DL Magnesium Level 1.7 MG/DL Total Protein 4.6 GM/DL B-Hydroxybutyrate 3.76 MMOL/L Imaging Last Impressions Head CT 08/24/16 0000 Signed Impressions: Service Date/Time: Wednesday, August 24, 2016 20:35 - CONCLUSION: Unremarkable study. Jesus Ferreira MD Chest X-Ray 08/24/16 0000 Signed Impressions: Service Date/Time: Wednesday, August 24, 2016 23:47 - CONCLUSION: 1. Tip of the endotracheal tube at the level of the martha. Suggest retracting it 1-2 cm. 2. New left lower lobe infiltrate and tiny left effusion. Manish Harvey Jr., MD Abdomen/Pelvis CT 08/24/16 0000 Signed Impressions: Service Date/Time: Wednesday, August 24, 2016 20:45 - CONCLUSION: There is moderate amount of stool throughout the colon and limited examination due to motion artifact. Possible focal areas of consolidation left lung base versus artifact. Jesus Ferreira MD Objective Remarks GENERAL: Patient is sedated and intubated SKIN: Warm and dry. HEAD: Normocephalic. EYES: No scleral icterus. No injection or drainage. NECK: Supple, trachea midline. No JVD or lymphadenopathy. CARDIOVASCULAR: Regular rate and rhythm without murmurs, gallops, or rubs. RESPIRATORY: Breath sounds equal bilaterally. No accessory muscle use. GASTROINTESTINAL: Abdomen soft, non-tender, nondistended. MUSCULOSKELETAL: No cyanosis, or edema. Neuro: Sedated A/P Assessment and Plan VDRF Altered mental status DKA Leukocytosis Left sided pneumonia AG metabolic acidosis Elevated Lipase level Recent foreign travel to [place] s/p treatment for Malaria Plan Neuro: Will change Diprivan infusion to Fentanyl drip for sedation given elevated Lipase and TG levels. Daily sedation vacation when appropriate. CT brain negative for acute disease. Check UDS Pulm: Continue with vent support keep sat >92% Bronchodilators, ICU vent bundle. Check ABG CV: Monitor HR and BP keep MAP>65mmHg. lactic acid level: 0.7 : Monitor renal function, I/O's, avoid nephrotoxins. Electrolytes replacement per protocol. Change IVF SW+3amps bicarb @150ml/hr, check CK's, Renal -Dr. Justin. Place on Free H20 250ml Q8, monitor Sodium level. GI: Place on Protonix 40mg daily for GI prophylaxis- Monitor Lipase level and check Triglycerides level. CT abdomen/pelvis: No acute findings Place on Colace, Senna for bowel regimen. ID: Place on abx Zosyn, Vanco x1 dose, monitor for signs of infections ( Fever, WBC) Check sputum cx, strep pneumonia and Legionella urinary Ag. Follow up on BC from 08/24, ID eval. Endo: On Insulin drip per DKA protocol. Transition to SSI with long acting insulin once AG is closed. Beta hydroxybutyrate 3.76 this morning from 10.4 on arrival. Check TSH level. Heme: Monitor CBC, Coags GI prophylaxis- Protonix 40mg daily DVT prophylaxis- SCD, Heparin SQ CCT 30 mins Dionne Billings MD Aug 25, 2016 10:09
[2016-08-25 10:11] LABS: HEMO FLAGS AUTO DIFF
[2016-08-25 10:15] LABS: PROTHROMBIN TIME - PATIENT 10.7 SEC (9.8-11.6)
[2016-08-25 10:21] LABS: AMPHETAMINE, URINE NEG (NEG); BARBITURATES, URINE NEG (NEG); COCAINE, URINE NEG (NEG)
--- NOTE | 2016-08-25 10:26 | EKG ---
Date Performed: 08/24/2016 Time Performed: 18:57:50 PTAGE: 51 years EKG: SINUS TACHYCARDIA WITH FREQUENT VENTRICULAR PREMATURE COMPLEXES POSSIBLE RIGHT ATRIAL ENLAR GEMENT POSSIBLE LEFT ATRIAL ENLARGEMENT NONSPECIFIC ST & T-WAVE ABNORMALITY ABNORMAL RHYTHM ECG NO PREVIOUS TRACING DOCTOR: Alondra Gabriel Interpretating Date/Time 08/25/2016 10:24:06
[2016-08-25 10:37] LABS: BETA-HYDROXYBUTYRATE 1.92 MMOL/L (0.00-0.39); HDL CHOLESTEROL 35.2 MG/DL (40.0-60.0)
[2016-08-25 10:42] LABS: ALKALINE PHOSPHATASE 98 U/L (45-117); ALT (GPT) 53 U/L (10-53); ANION GAP 14 MEQ/L (5-15); AST (GOT) 89 U/L (15-37); BICARBONATE 10.4 MEQ/L (21.0-32.0); BLOOD UREA NITROGEN 26 MG/DL (7-18); CHLORIDE 123 MEQ/L (98-107); GLOMERULAR FILTRATION RATE 30 ML/MIN (>89); MAGNESIUM 1.6 MG/DL (1.5-2.5); POTASSIUM 3.4 MEQ/L (3.5-5.1); SODIUM (NA) 147 MEQ/L (136-145); TOTAL BILIRUBIN ADULT 0.3 MG/DL (0.2-1.0)
[2016-08-25 10:51] LABS: BANDS 10 % (0-6); MYELOCYTES 6 % (0-0); NEUTROPHIL # MANUAL DIFF 8.7 TH/MM3 (1.8-7.7); PLATELET ESTIMATE SMEAR LOW (NORMAL); PLATELET MORPHOLOGY NORMAL (NORMAL); POLYS (SEG NEUTROPHILS) 65 % (16-70); SCAN/DIFF FINAL DIFF MANUAL; WBC DIFF SAMPLE 100
--- NOTE | 2016-08-25 10:52 | RADRPT ---
EXAM DATE/TIME: 08/25/2016 10:14 [facility] COMPARISON: CHEST SINGLE AP, August 24, 2016, 23:47. INDICATIONS : Short of breath MEDICAL HISTORY : Diabetes mellitus type II. pancreatic insufficiency SURGICAL HISTORY : None. ENCOUNTER: Subsequent ACUITY: 3 days PAIN SCORE: Non-responsive. LOCATION: Bilateral chest FINDINGS: The heart is normal in size. There is an endotracheal tube in good position. There is a nasogastric t ube in good position. The lungs are clear. The visualized bony structures are grossly intact. CONCLUSION: 1. The endotracheal tube and NG tube are in good position. 2. The lungs are clear. Dipak Rodriguez MD on August 25, 2016 at 10:50 Board Certified Radiologist. This report was verified electronically.
[2016-08-25] MEDS: PIPERACIL-TAZO 4.5 GM PREMIX 100 ML IV SCH ×2 (11:00→18:37)
[2016-08-25] MEDS ORDERED: fentaNYL DRIP 250 ML IV SCH (11:45)
[2016-08-25] MEDS: SODIUM BICARBONATE 8.4% INJ 150 MEQ in WATER STERILE FOR INJ 850 ML IV SCH ×2 (12:21→18:38)
[2016-08-25] MEDS ORDERED: SODIUM CHLORIDE 23.4% INJ 38.5 MEQ in WATER STERILE FOR INJ 1,000 ML IV SCH (12:30)
--- NOTE | 2016-08-25 12:33 | PD.CONS ---
HPI Service Nephrology Consult Requested By Dr. 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 The patient is stable on the ventilator she was treated for diabetic ketoacidosis initially pH was 6.7 this improved to 7.18 her bicarbonate on blood gases remained low at 8, she now has developed hyperchloremic metabolic acidosis with an anion gap of 14, this was improved from initial anion gap of 25, she was started on bicarbonate drip. Patient is on insulin drip. Review of Systems ROS Limitations: Clinical Condition Past Family Social History Allergies: Coded Allergies: No Known Allergies (Unverified , 08/24/16) Past Medical History Insulin-dependent diabetes Cerebral Malaria 2 years ago with multiorgan failure from which she pulled through did not require dialysis per patient friends Past Surgical History Unable to obtain Active Ordered Medications Current Medications Medications (Trade) Dose Ordered Sig/Billie Route Start Time Stop Time Status Last Admin Sodium Chloride 1,000 ml @ 250 mls/hr Q4H IV 08/24/16 21:49 Dextrose/Sodium Chloride 1,000 ml @ 200 mls/hr Q5H IV 08/24/16 21:49 08/25/16 09:10 Insulin Human Regular 100 units/ Sodium Chloride 100 ml @ 0 mls/hr TITRATE IV 08/24/16 22:00 08/25/16 05:38 Potassium Chloride 100 ml @ 100 mls/hr Q1H PRN IV 08/24/16 22:00 Potassium Chloride 100 ml @ 50 mls/hr Q2H PRN IV 08/24/16 22:00 Potassium Chloride 100 ml @ 100 mls/hr Q1H PRN IV 08/24/16 22:00 Potassium Chloride 100 ml @ 100 mls/hr Q1H PRN IV 08/24/16 22:00 Potassium Chloride 100 ml @ 50 mls/hr Q2H PRN IV 08/24/16 22:00 Potassium Chloride 100 ml @ 50 mls/hr Q2H PRN IV 08/24/16 22:00 Potassium Chloride 100 ml @ 50 mls/hr Q2H PRN IV 08/24/16 22:00 (KCl 20 Meq Premix Inj) 100 ml @ 50 mls/hr Q2H PRN IV 08/24/16 22:00 (Sodium Bicarbonate 8.4% Inj) 100 meq UNSCH PRN IV 08/24/16 22:00 Sodium Bicarbonate 50 meq 50 meq UNSCH PRN IV 08/24/16 22:00 (Sodium Phosphate Inj/NS Inj) 105 ml @ 25 mls/hr UNSCH PRN IV 08/24/16 22:00 Miscellaneous Information 1 [id number] XX 08/24/16 22:00 (Chlorhexidine 2% Cloth) 3 pack Taper DAILY@04 TOP 08/25/16 04:00 08/21/17 03:59 08/25/16 04:00 Chlorhexidine Gluconate 3 pack 3 pack UNSCH PRN TOP 08/24/16 22:00 (Versed Inj) 100 ml @ 0 mls/hr TITRATE IV 08/25/16 02:30 (Senna Liq) 8.8 mg DAILY PO 08/25/16 10:00 Docusate Sodium 100 mg 100 mg Q12HR PO 08/25/16 10:00 (Zosyn 4.5 Gm Premix) 100 ml @ 200 mls/hr Q8H IV 08/25/16 11:00 (Protonix Inj) 40 mg DAILY IV PUSH 08/25/16 10:00 Heparin Sodium (Porcine) 5000 units 5,000 units Q12HR SQ 08/25/16 21:00 Sodium Bicarbonate 150 meq/Sterile Water 1,000 ml @ 150 mls/hr Q6H40M IV 08/25/16 12:00 (fentaNYL DRIP) 250 ml @ 0 mls/hr TITRATE IV 08/25/16 11:45 Family History Noncontributory Social History Unknown Physical Exam Vital Signs Vital Signs Date Time Temp Pulse Resp B/P Pulse Ox O2 Delivery O2 Flow Rate FiO2 08/25/16 10:55 100 50 08/25/16 08:44 100 50 08/25/16 06:00 103 08/25/16 04:08 100 70 08/25/16 04:00 95.8 101 16 91/56 100 08/25/16 04:00 101 08/25/16 04:00 60 08/25/16 02:39 113 08/25/16 02:35 70 08/25/16 02:30 94.1 102 16 95/57 100 08/25/16 01:48 93.5 101 12 97/57 100 Ventilator 50 08/25/16 01:30 100 100 08/25/16 00:21 91.8 96 12 124/71 100 Ventilator 100 08/25/16 00:19 100 08/25/16 00:15 95 12 131/84 100 08/24/16 21:10 101 25 114/64 100 Room Air 08/24/16 21:01 103 25 123/67 100 Room Air 08/24/16 20:00 108 18 138/73 100 Room Air 08/24/16 19:33 106 30 168/96 100 Room Air 08/24/16 18:15 16 99 Nasal Cannula 2 08/24/16 18:10 97.8 99 26 172/96 100 Room Air 08/24/16 18:03 97.1 103 26 98 Physical Exam GENERAL: Well-nourished, well-developed on the ventilator patient. SKIN: Warm and dry. HEAD: Normocephalic. EYES: No scleral icterus. No injection or drainage. NECK: Supple, trachea midline. No JVD or lymphadenopathy. CARDIOVASCULAR: Regular rate and rhythm without murmurs, gallops, or rubs. RESPIRATORY: Breath sounds equal bilaterally. No accessory muscle use. GASTROINTESTINAL: Abdomen soft, non-tender, nondistended. EXTREMITIES: No cyanosis, or edema. NEUROLOGICAL: Under sedation Laboratory Laboratory Tests Test 08/24/16 08/24/16 08/24/16 08/24/16 18:15 18:25 18:35 19:30 White Blood Count 22.6 Red Blood Count 5.17 Hemoglobin 15.8 Hematocrit 50.9 Mean Corpuscular Volume 98.4 Mean Corpuscular Hemoglobin 30.6 Mean Corpuscular Hemoglobin 31.1 Concent Red Cell Distribution Width 14.1 Platelet Count 241 Mean Platelet Volume 8.5 Neutrophils (%) (Auto) 80.0 Lymphocytes (%) (Auto) 10.0 Monocytes (%) (Auto) 7.9 Eosinophils (%) (Auto) 1.4 Basophils (%) (Auto) 0.7 Neutrophils # (Auto) 18.1 Lymphocytes # (Auto) 2.3 Monocytes # (Auto) 1.8 Eosinophils # (Auto) 0.3 Basophils # (Auto) 0.2 CBC Comment AUTO DIFF Differential Total Cells 100 Counted Neutrophils % (Manual) 63 Band Neutrophils % 16 Lymphocytes % 14 Monocytes % 6 Neutrophils # (Manual) 18.1 Metamyelocytes 1 Differential Comment FINAL DIFF MANUAL Platelet Estimate NORMAL Platelet Morphology Comment NORMAL Red Cell Morphology Comment NORMAL Sodium Level 136 Potassium Level 3.8 Chloride Level 106 Carbon Dioxide Level 5.0 Anion Gap 25 Blood Urea Nitrogen 23 Creatinine 1.31 Estimat Glomerular Filtration 43 Rate Random Glucose 363 Calcium Level 8.6 Phosphorus Level 4.4 Magnesium Level 2.6 Total Bilirubin 0.4 Aspartate Amino Transf 21 (AST/SGOT) Alanine Aminotransferase 19 (ALT/SGPT) Alkaline Phosphatase 115 Total Protein 6.7 Albumin 3.6 Lipase 8874 B-Hydroxybutyrate 10.40 Blood Gas Puncture Site IV Blood Gas Patient Temperature 98.6 Venous Blood pH 6.77 Venous Blood Partial Pressure 15 CO2 Venous Blood Partial Pressure 72 O2 Venous Blood HCO3 2 Venous Blood Oxygen Saturation 88 Venous Blood Oxygen Content 20.1 Venous Blood Base Excess -29.3 Oxygen Delivery Device NASAL CANNULA Blood Gas Liter Flow 2 Urine Color LIGHT-YELLOW Urine Turbidity HAZY Urine pH 5.5 Urine Specific [place] 1.013 Urine Protein 30 Urine Glucose (UA) 1000 Urine Ketones 150 Urine Occult Blood SMALL Urine Nitrite NEG Urine Bilirubin NEG Urine Urobilinogen LESS THAN 2.0 Urine Leukocyte Esterase NEG Urine RBC 4 Urine WBC 4 Urine Squamous Epithelial <1 Cells Urine Amorphous Sediment RARE Urine Bacteria RARE Urine Mucus FEW Microscopic Urinalysis Comment CULT NOT INDICATED Lactic Acid Level 1.6 Test 08/24/16 08/25/16 08/25/16 08/25/16 23:41 00:18 02:40 04:23 Lactic Acid Level 0.7 Blood Gas Puncture Site lr Blood Gas Patient Temperature 98.6 Blood Gas HCO3 3 Blood Gas Base Excess -28.5 Blood Gas Oxygen Saturation 97 Arterial Blood pH 6.70 Arterial Blood Partial 29 Pressure CO2 Arterial Blood Partial 377 Pressure O2 Arterial Blood Oxygen Content 23.2 Arterial Blood 0.1 Carboxyhemoglobin Arterial Blood Methemoglobin 1.4 Blood Gas Hemoglobin 16.4 Oxygen Delivery Device VENTILATOR Blood Gas Ventilator Setting 12/500/PEEP5 Blood Gas Inspired Oxygen 100 Nasal Screen MRSA (PCR) NEGATIVE Sodium Level 147 Potassium Level 3.7 Chloride Level 118 Carbon Dioxide Level 6.5 Anion Gap 23 Blood Urea Nitrogen 26 Creatinine 1.33 Estimat Glomerular Filtration 42 Rate Random Glucose 247 Calcium Level 7.7 Phosphorus Level 2.7 Magnesium Level 2.2 Test 4/408/25/16 08/25/16 08/25/16 07:05 09:00 09:50 09:59 Sodium Level 146 147 Potassium Level 3.5 3.4 Chloride Level 121 123 Carbon Dioxide Level 9.1 10.4 Anion Gap 16 14 Blood Urea Nitrogen 26 26 Creatinine 1.56 1.77 Estimat Glomerular Filtration 35 30 Rate Random Glucose 233 239 Calcium Level 7.3 7.5 Protein Corrected Calcium 8.7 Phosphorus Level 1.1 0.7 Magnesium Level 1.7 1.6 Total Protein 4.6 5.0 B-Hydroxybutyrate 3.76 1.92 Urine Opiates Screen NEG Urine Barbiturates Screen NEG Urine Amphetamines Screen NEG Urine Benzodiazepines Screen NEG Urine Cocaine Screen NEG Urine Cannabinoids Screen NEG White Blood Count 10.8 Red Blood Count 4.44 Hemoglobin 14.2 Hematocrit 40.8 Mean Corpuscular Volume 91.9 Mean Corpuscular Hemoglobin 31.9 Mean Corpuscular Hemoglobin 34.7 Concent Red Cell Distribution Width 13.7 Platelet Count 140 Mean Platelet Volume 8.1 Neutrophils (%) (Auto) 84.0 Lymphocytes (%) (Auto) 6.3 Monocytes (%) (Auto) 9.0 Eosinophils (%) (Auto) 0.0 Basophils (%) (Auto) 0.7 Neutrophils # (Auto) 9.1 Lymphocytes # (Auto) 0.7 Monocytes # (Auto) 1.0 Eosinophils # (Auto) 0.0 Basophils # (Auto) 0.1 CBC Comment AUTO DIFF Differential Total Cells 100 Counted Neutrophils % (Manual) 65 Band Neutrophils % 10 Lymphocytes % 8 Monocytes % 11 Neutrophils # (Manual) 8.7 Myelocytes 6 Differential Comment FINAL DIFF MANUAL Platelet Estimate LOW Platelet Morphology Comment NORMAL Red Cell Morphology Comment NORMAL Prothrombin Time 10.7 Prothromb Time International 1.0 Ratio Lactic Acid Level 0.7 Total Bilirubin 0.3 Aspartate Amino Transf 89 (AST/SGOT) Alanine Aminotransferase 53 (ALT/SGPT) Alkaline Phosphatase 98 Albumin 2.4 Triglycerides Level 514 Cholesterol Level 203 LDL Cholesterol HDL Cholesterol 35.2 Cholesterol/HDL Ratio 5.76 Lipase 3058 Thyroid Stimulating Hormone 1.780 3rd Gen Ethyl Alcohol Level LESS THAN 3 Blood Gas Puncture Site RT RADIAL Blood Gas Patient Temperature 98.6 Blood Gas HCO3 8 Blood Gas Base Excess -18.6 Blood Gas Oxygen Saturation 96 Arterial Blood pH 7.18 Arterial Blood Partial 23 Pressure CO2 Arterial Blood Partial 240 Pressure O2 Arterial Blood Oxygen Content 18.9 Arterial Blood 1.3 Carboxyhemoglobin Arterial Blood Methemoglobin 1.8 Blood Gas Hemoglobin 13.6 Oxygen Delivery Device VENTILATOR Blood Gas Ventilator Setting 500/AC12/PEEP5 Blood Gas Inspired Oxygen 50 Date/Time Procedure Status Source Growth 08/25/16 09:00 Legionella Antigen - Final Complete Urine Catheterized Urine PRESUMPTIVE NEGATIVE FOR LEGIONELLA P... 08/25/16 09:00 Streptococcus pneumoniae Antigen (M - Final Complete Urine Catheterized Urine PRESUMPTIVE NEGATIVE FOR STREPTOCOCCU... 08/24/16 19:30 Aerobic Blood Culture - Preliminary Resulted Blood Peripheral NO GROWTH IN 1 DAY 08/24/16 19:30 Anaerobic Blood Culture - Preliminary Resulted Blood Peripheral NO GROWTH IN 1 DAY Result Diagram: 08/25/16 0950 08/25/16 0950 Imaging Last Impressions Chest X-Ray 08/25/16 0000 Signed Impressions: Service Date/Time: Thursday, August 25, 2016 10:14 - CONCLUSION: 1. The endotracheal tube and NG tube are in good position. 2. The lungs are clear. Dipak Rodriguez MD Head CT 08/24/16 0000 Signed Impressions: Service Date/Time: Wednesday, August 24, 2016 20:35 - CONCLUSION: Unremarkable study. Jesus Ferreira MD Abdomen/Pelvis CT 08/24/16 0000 Signed Impressions: Service Date/Time: Wednesday, August 24, 2016 20:45 - CONCLUSION: There is moderate amount of stool throughout the colon and limited examination due to motion artifact. Possible focal areas of consolidation left lung base versus artifact. Jesus Ferreira MD Assessment and Plan Problem List: (1) Acute renal failure Plan: Patient appears to have hyperchloremia and the dehydration now we'll continue to hydrate the sodium levels are low elevated agree with sodium bicarbonate with sterile water at this stage push fluids check a urine electrolytes possibility of Etiology beside the diabetic ketoacidosis has been worked out I will order serum osmolality as well.contrast given as well, Replace K/PO4. D/W Dr. Billings (2) DKA (diabetic ketoacidoses) Plan: She still has positive beta hydroxybutyrate in the blood (3) Metabolic acidosis Plan: Any other etiologies or combination of the D lactic acidosis plus ketoacidosis is considered She has hyperchloremic metabolic acidosis / non-anion gap acidosis (4) Hypernatremia Plan: Likely due to total body water deficits this is calculated at 2.1 L water deficit Despite bicarbonate drip at the R and 50 cc an hour we can start her on one fourth saline with 20 meq KCL at 50 cc an hour to replace free water deficit (5) Pancreatitis Plan: Follow Lipase Problem Qualifiers (1) DKA (diabetic ketoacidoses): Qualified Code: E10.10 - Diabetic ketoacidosis without coma associated with type 1 diabetes mellitus Kwaku Justin MD Aug 25, 2016 12:33
[2016-08-25] MEDS: DOCUSATE SODIUM 100 MG/10 ML UDC PO SCH ×2 (13:12→22:43)
[2016-08-25] MEDS: PANTOPRAZOLE SODIUM 40 MG VIAL IV PUSH SCH (13:12)
[2016-08-25] MEDS: SENNOSIDES SYRUP 8.8 MG/5 ML CUP PO SCH (13:12)
[2016-08-25 14:28] LABS: BICARBONATE 13.2 MEQ/L (21.0-32.0); MAGNESIUM 1.4 MG/DL (1.5-2.5)
[2016-08-25 14:36] LABS: POTASSIUM 2.6 MEQ/L (3.5-5.1)
[2016-08-25] MEDS ORDERED: DEXTROSE 50% IN WATER 50 ML VIAL(D50) IV PUSH PRN (15:00)
[2016-08-25] MEDS ORDERED: GLUCAGON 1 MG/ML VIAL OTHER PRN (15:00)
[2016-08-25] MEDS ORDERED: POTASSIUM PHOSPHATE INJ 30 MMOL in SODIUM CHLOR 0.9% 250 ML INJ 250 ML IV ONE (15:00)
[2016-08-25] MEDS: FREE WATER G-TUBE SCH ×2 (15:00→22:00)
[2016-08-25 15:05] LABS: CALCIUM-PROTEIN CORRECTED 8.5 MG/DL (8.5-10.1)
[2016-08-25] MEDS: MAGNESIUM SULFATE 1 GM PREMIX 100 ML IV SCH ×2 (15:32→16:46)
--- NOTE | 2016-08-25 15:35 | PD ---
Physical Exam Time Seen by Provider: 23:10 Data Data Last Documented VS Vital Signs Date Time Temp Pulse Resp B/P Pulse Ox O2 Delivery O2 Flow Rate FiO2 08/24/16 21:10 101 25 114/64 100 Room Air 08/24/16 18:15 2 08/24/16 18:10 97.8 Orders Electrocardiogram (08/24/16 18:15) Test Specialist / Telemetry [email or web address].Q8H (08/24/16 18:15) ^ Insert Iv (08/24/16 18:15) Diet Npo (08/24/16 Dinner) Lipase (08/24/16 18:15) Complete Blood Count With Diff (08/24/16 18:15) Comprehensive Metabolic Panel (08/24/16 18:15) Magnesium (Mg) (08/24/16 18:15) Phosphorus (Po4) (08/24/16 18:15) Beta Hydroxybutyrate (Acetone) (08/24/16 18:15) Sodium Chlor 0.9% 1000 Ml Inj (Ns 1000 M (08/24/16 18:15) Sodium Chlor 0.9% 1000 Ml Inj (Ns 1000 M (08/24/16 18:15) Dext 5%-Nacl 0.9% 1000 Ml Inj (D5w-Ns 10 (08/24/16 18:15) Urinalysis - C+S If Indicated (08/24/16 18:15) Chest, Single Ap (08/24/16 ) Blood Gas Venous (Vbg) (08/24/16 18:15) Lactic Acid (08/24/16 18:51) Ct Abd/Pel W Iv Contrast(Rout) (08/24/16 ) Morphine Inj (Morphine Inj) (08/24/16 19:00) Ondansetron Inj (Zofran Inj) (08/24/16 19:00) Ct Brain W/O Iv Contrast(Rout) (08/24/16 ) Isolation 08,20 (08/24/16 19:11) Blood Culture (08/24/16 19:11) Sodium Bicarbonate 8.4% Inj (Sodium Bica (08/24/16 19:15) Test Specialist / Telemetry [email or web address].Q8H (08/24/16 19:36) ^ Insert Iv (08/24/16 19:36) Diet Npo (08/25/16 Breakfast) Sodium Chlor 0.9% 1000 Ml Inj (Ns 1000 M (08/24/16 19:36) Dext 5%-Nacl 0.9% 1000 Ml Inj (D5w-Ns 10 (08/24/16 20:00) Insulin Regular (Iv Infusion) (Novolin R (08/24/16 19:45) Potassium Chlor 40 Meq Premix (Kcl 40 Me (08/24/16 19:45) Potassium Chlor 40 Meq Premix (Kcl 40 Me (08/24/16 19:45) Potassium Chlor 20 Meq Premix (Kcl 20 Me (08/24/16 19:45) Potassium Chlor 20 Meq Premix (Kcl 20 Me (08/24/16 19:45) Potassium Chlor 20 Meq Premix (Kcl 20 Me (08/24/16 19:45) Potassium Chlor 20 Meq Premix (Kcl 20 Me (08/24/16 19:45) Potassium Chlor 20 Meq Premix (Kcl 20 Me (08/24/16 19:45) Potassium Chlor 20 Meq Premix (Kcl 20 Me (08/24/16 19:45) Sodium Bicarbonate 8.4% Inj (Sodium Bica (08/24/16 19:45) Sodium Bicarbonate 8.4% Inj (Sodium Bica (08/24/16 19:45) Sodium Phosphate Inj (Sodium Phosphate I (08/24/16 19:45) Basic Metabolic Panel (Bmp) (08/25/16 06:36) Basic Metabolic Panel (Bmp) (08/25/16 12:36) Basic Metabolic Panel (Bmp) (08/25/16 18:36) Magnesium (Mg) (08/25/16 06:36) Magnesium (Mg) (08/25/16 12:36) Magnesium (Mg) (08/25/16 18:36) Phosphorus (Po4) (08/25/16 06:36) Phosphorus (Po4) (08/25/16 12:36) Phosphorus (Po4) (08/25/16 18:36) Beta Hydroxybutyrate (Acetone) (08/25/16 06:36) Beta Hydroxybutyrate (Acetone) (08/25/16 18:36) Iohexol 350 Inj (Omnipaque 350 Inj) (08/24/16 20:55) Admit Order (Ed Use Only) (08/24/16 ) Protein Corrected Calcium(Pcc) (08/25/16 07:05) Protein Corrected Calcium(Pcc) (08/25/16 13:33) Labs Laboratory Tests Test 08/24/16 08/24/16 08/24/16 08/24/16 18:15 18:25 18:35 19:30 White Blood Count 22.6 TH/MM3 Red Blood Count 5.17 MIL/MM3 Hemoglobin 15.8 GM/DL Hematocrit 50.9 % Mean Corpuscular Volume 98.4 FL Mean Corpuscular Hemoglobin 30.6 PG Mean Corpuscular Hemoglobin 31.1 % Concent Red Cell Distribution Width 14.1 % Platelet Count 241 TH/MM3 Mean Platelet Volume 8.5 FL Neutrophils (%) (Auto) 80.0 % Lymphocytes (%) (Auto) 10.0 % Monocytes (%) (Auto) 7.9 % Eosinophils (%) (Auto) 1.4 % Basophils (%) (Auto) 0.7 % Neutrophils # (Auto) 18.1 TH/MM3 Lymphocytes # (Auto) 2.3 TH/MM3 Monocytes # (Auto) 1.8 TH/MM3 Eosinophils # (Auto) 0.3 TH/MM3 Basophils # (Auto) 0.2 TH/MM3 CBC Comment AUTO DIFF Differential Total Cells 100 Counted Neutrophils % (Manual) 63 % Band Neutrophils % 16 % Lymphocytes % 14 % Monocytes % 6 % Neutrophils # (Manual) 18.1 TH/MM3 Metamyelocytes 1 % Differential Comment FINAL DIFF MANUAL Platelet Estimate NORMAL Platelet Morphology Comment NORMAL Red Cell Morphology Comment NORMAL Sodium Level 136 MEQ/L Potassium Level 3.8 MEQ/L Chloride Level 106 MEQ/L Carbon Dioxide Level 5.0 MEQ/L Anion Gap 25 MEQ/L Blood Urea Nitrogen 23 MG/DL Creatinine 1.31 MG/DL Estimat Glomerular Filtration 43 ML/MIN Rate Random Glucose 363 MG/DL Calcium Level 8.6 MG/DL Phosphorus Level 4.4 MG/DL Magnesium Level 2.6 MG/DL Total Bilirubin 0.4 MG/DL Aspartate Amino Transf 21 U/L (AST/SGOT) Alanine Aminotransferase 19 U/L (ALT/SGPT) Alkaline Phosphatase 115 U/L Total Protein 6.7 GM/DL Albumin 3.6 GM/DL Lipase 8874 U/L B-Hydroxybutyrate 10.40 MMOL/L Blood Gas Puncture Site IV Blood Gas Patient Temperature 98.6 Venous Blood pH 6.77 Venous Blood Partial Pressure 15 mmHg CO2 Venous Blood Partial Pressure 72 mmHg O2 Venous Blood HCO3 2 mmol/L Venous Blood Oxygen Saturation 88 % Venous Blood Oxygen Content 20.1 Vol % Venous Blood Base Excess -29.3 mmol/L Oxygen Delivery Device NASAL CANNULA Blood Gas Liter Flow 2 L/M Urine Color LIGHT-YELLOW Urine Turbidity HAZY Urine pH 5.5 Urine Specific [place] 1.013 Urine Protein 30 mg/dL Urine Glucose (UA) 1000 mg/dL Urine Ketones 150 mg/dL Urine Occult Blood SMALL Urine Nitrite NEG Urine Bilirubin NEG Urine Urobilinogen LESS THAN 2.0 MG/DL Urine Leukocyte Esterase NEG Urine RBC 4 /hpf Urine WBC 4 /hpf Urine Squamous Epithelial <1 /hpf Cells Urine Amorphous Sediment RARE Urine Bacteria RARE /hpf Urine Mucus FEW /lpf Microscopic Urinalysis Comment CULT NOT INDICATED Lactic Acid Level 1.6 mmol/L MDM Supervised Visit with BRIANNA: No Narrative Course At 2109 i was informed by nursing that the patient was starting to become more altered. Patient on arrival was able to provide some history but had some level of metabolic encephalopathy. Arrive at patients bedside to find patient is now GCS of [id number]. Patient with sonorous respirations. Patient initially had temp of 97 nursing rechecked now and is 91F rectally. Patient has had temp sensing hall placed at 2315 and she did not move with placement. BG was checked 15 mins prior to my evaluation by nursing and verbally reported to me at 150. She is in need of airway protection at this time. Patient was intubated, CXR confirms low placed ETT which was retracted 2cm after CXR. VBG rechecked and shows persistent metabolic acidosis. 2 additional amps of bicarb given. Continuing IVF, insulin drip and electrolyte replacement protocol. Dr. Suh was informed of the patient change in status. Shortly after patient moved to ICU in critical condition. Again, patient was placed on isolation solely for travel history, her history is much more consistent with DKA than communicable disease. Procedures Procedure Narrative INTUBATION: Emergent consent Rocuronium 50mg Etomidate 20mg 100% O2 sat prior to BVM. BVM additional preoxygenation, O2 sat 100%. MAC 3 direct laryngoscopy. 8.0 ETT Hi-Lo. Capnography, +BS bilat, absent epigastric sound. Propofol and versed drips. Diagnosis Primary Impression: DKA (diabetic ketoacidoses) Qualified Code: E10.10 - Diabetic ketoacidosis without coma associated with type 1 diabetes mellitus Additional Impression: Encephalopathy acute Admitting Information Admitting Physician Requests: Admit Condition: Critical Matt Wasserman MD Aug 25, 2016 15:35
[2016-08-25] MEDS: INSULIN NovoLIN REGULAR SUPPLEMENTAL SCALE SQ SCH ×2 (16:00→22:00)
[2016-08-25 16:10] LABS: BICARBONATE 15.5 MEQ/L (21.0-32.0); MAGNESIUM 1.4 MG/DL (1.5-2.5)
[2016-08-25 16:14] LABS: POTASSIUM 2.6 MEQ/L (3.5-5.1)
[2016-08-25 16:25] LABS: CALCIUM-PROTEIN CORRECTED 8.8 MG/DL (8.5-10.1)
[2016-08-25 16:30] LABS: BLOOD GAS BASE EXCESS -11.4 mmol/L (-2-2); BLOOD GAS CARBOXYHEMOGLOBIN 0.3 % (0-4); BLOOD GAS HCO3 14 mmol/L (22-26); BLOOD GAS METHEMOGLOBIN 1.3 % (0-2); BLOOD GAS O2 HGB SATURATION 96 % (90-100); BLOOD GAS OXYGEN CONTENT 17.6 Vol % (12.0-20.0); BLOOD GAS PCO2 28 mmHg (38-42); BLOOD GAS PO2 164 mmHg (61-120); BLOOD GAS TOTAL HGB 12.8 G/DL (12.0-16.0); CRITICAL VALUE YES; DRAW SITE RT RADIAL; FIO2 40 %; NUMBER OF ARTERIAL PUNCTURES 1; OXYGEN DEVICE VENTILATOR; STAT NO; TEMP CORR TO 98.6; ULNAR PULSE PRESENT; VENT SETTINGS 12/500/+5+40%
--- NOTE | 2016-08-25 18:34 | PD.ID.CON ---
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 She presented with GCS 14-15 then was listed as obtunded, now she opening eye/ communicating via nodding / makes eye contact and tracks SHe has low grade fever and tobi she had profound hypothermia (91.8F) SHe has significant leukocytosis o presentation of 22 K which improved down to 10 K SHe neg BC at 1 day, negative Leg/Pneumococcus Review of Systems ROS Limitations: Clinical Condition, Intubated, Altered Mental Status Past Family Social History Allergies: Coded Allergies: No Known Allergies (Unverified , 08/24/16) Past Medical History DM ow unknown Past Surgical History unknown, but no obvoius surgical scars Active Ordered Medications Medications where reviewed in EMR Antibiotics Include: zosyn Family History unknown Social History denies tobacco returned traveller to [place] ETOH - unknown Physical Exam Vital Signs Vital Signs Date Time Temp Pulse Resp B/P Pulse Ox O2 Delivery O2 Flow Rate FiO2 08/25/16 16:00 96 08/25/16 16:00 50 08/25/16 16:00 98.0 96 16 95/50 95 08/25/16 15:22 99 40 08/25/16 14:00 96 08/25/16 13:48 96 40 08/25/16 12:00 50 08/25/16 12:00 99.1 101 14 111/64 100 08/25/16 12:00 100 08/25/16 10:55 100 50 08/25/16 10:00 104 08/25/16 08:44 100 50 08/25/16 08:00 50 08/25/16 08:00 101 08/25/16 08:00 98.4 101 16 98/58 100 08/25/16 06:00 103 08/25/16 04:08 100 70 08/25/16 04:00 95.8 101 16 91/56 100 08/25/16 04:00 101 08/25/16 04:00 60 08/25/16 02:39 113 08/25/16 02:35 70 08/25/16 02:30 94.1 102 16 95/57 100 08/25/16 01:48 93.5 101 12 97/57 100 Ventilator 50 08/25/16 01:30 100 100 08/25/16 00:21 91.8 96 12 124/71 100 Ventilator 100 08/25/16 00:19 100 08/25/16 00:15 95 12 131/84 100 08/24/16 21:10 101 25 114/64 100 Room Air 08/24/16 21:01 103 25 123/67 100 Room Air 08/24/16 20:00 108 18 138/73 100 Room Air 08/24/16 19:33 106 30 168/96 100 Room Air 08/24/16 18:15 16 99 Nasal Cannula 2 Physical Exam CONSTITUTIONAL/GENERAL: This is an adequately nourished patient, in no apparent distress. TUBES/LINES/DRAINS: SKIN: No jaundice, rashes, or lesions. Skin temperature appropriate. Not diaphoretic. HEAD: Atraumatic. Normocephalic. EYES: Pupils equal and round and reactive. Extraocular motions intact. No scleral icterus. No injection or drainage. Fundi not examined. ENT: Hearing grossly normal. Nose without bleeding or purulent drainage. Orally intubated NECK: Trachea midline. Supple, nontender. CARDIOVASCULAR: Regular rate and rhythm without murmurs, gallops, or rubs. No JVD. Peripheral pulses symmetric. RESPIRATORY/CHEST: Symmetric, unlabored respirations. Clear to auscultation. Breath sounds equal bilaterally. No wheezes, rales, or rhonchi. GASTROINTESTINAL: Abdomen soft, non-tender, nondistended. No hepato-splenomegaly , or palpable masses. No guarding. Bowel sounds present. GENITOURINARY: Without palpable bladder distension. Johnson catheter in place with clear yellow urine MUSCULOSKELETAL: Extremities without clubbing, cyanosis, or edema. No joint tenderness or effusion noted. No calf tenderness. No mottling or clubbing. LYMPHATICS: No palpable cervical or supraclavicular adenopathy. NEUROLOGICAL: Sedated, but arousable. Makes eyecontact. Moves all extremities. No t following consistently PSYCHIATRIC: unable to assess Laboratory Laboratory Tests Test 08/24/16 08/24/16 08/24/16 08/24/16 18:15 18:25 18:35 19:30 White Blood Count 22.6 Red Blood Count 5.17 Hemoglobin 15.8 Hematocrit 50.9 Mean Corpuscular Volume 98.4 Mean Corpuscular Hemoglobin 30.6 Mean Corpuscular Hemoglobin 31.1 Concent Red Cell Distribution Width 14.1 Platelet Count 241 Mean Platelet Volume 8.5 Neutrophils (%) (Auto) 80.0 Lymphocytes (%) (Auto) 10.0 Monocytes (%) (Auto) 7.9 Eosinophils (%) (Auto) 1.4 Basophils (%) (Auto) 0.7 Neutrophils # (Auto) 18.1 Lymphocytes # (Auto) 2.3 Monocytes # (Auto) 1.8 Eosinophils # (Auto) 0.3 Basophils # (Auto) 0.2 CBC Comment AUTO DIFF Differential Total Cells 100 Counted Neutrophils % (Manual) 63 Band Neutrophils % 16 Lymphocytes % 14 Monocytes % 6 Neutrophils # (Manual) 18.1 Metamyelocytes 1 Differential Comment FINAL DIFF MANUAL Platelet Estimate NORMAL Platelet Morphology Comment NORMAL Red Cell Morphology Comment NORMAL Sodium Level 136 Potassium Level 3.8 Chloride Level 106 Carbon Dioxide Level 5.0 Anion Gap 25 Blood Urea Nitrogen 23 Creatinine 1.31 Estimat Glomerular Filtration 43 Rate Random Glucose 363 Calcium Level 8.6 Phosphorus Level 4.4 Magnesium Level 2.6 Total Bilirubin 0.4 Aspartate Amino Transf 21 (AST/SGOT) Alanine Aminotransferase 19 (ALT/SGPT) Alkaline Phosphatase 115 Total Protein 6.7 Albumin 3.6 Lipase 8874 B-Hydroxybutyrate 10.40 Blood Gas Puncture Site IV Blood Gas Patient Temperature 98.6 Venous Blood pH 6.77 Venous Blood Partial Pressure 15 CO2 Venous Blood Partial Pressure 72 O2 Venous Blood HCO3 2 Venous Blood Oxygen Saturation 88 Venous Blood Oxygen Content 20.1 Venous Blood Base Excess -29.3 Oxygen Delivery Device NASAL CANNULA Blood Gas Liter Flow 2 Urine Color LIGHT-YELLOW Urine Turbidity HAZY Urine pH 5.5 Urine Specific [place] 1.013 Urine Protein 30 Urine Glucose (UA) 1000 Urine Ketones 150 Urine Occult Blood SMALL Urine Nitrite NEG Urine Bilirubin NEG Urine Urobilinogen LESS THAN 2.0 Urine Leukocyte Esterase NEG Urine RBC 4 Urine WBC 4 Urine Squamous Epithelial <1 Cells Urine Amorphous Sediment RARE Urine Bacteria RARE Urine Mucus FEW Microscopic Urinalysis Comment CULT NOT INDICATED Lactic Acid Level 1.6 Test 08/24/16 08/25/16 08/25/16 08/25/16 23:41 00:18 02:40 04:23 Lactic Acid Level 0.7 Blood Gas Puncture Site lr Blood Gas Patient Temperature 98.6 Blood Gas HCO3 3 Blood Gas Base Excess -28.5 Blood Gas Oxygen Saturation 97 Arterial Blood pH 6.70 Arterial Blood Partial 29 Pressure CO2 Arterial Blood Partial 377 Pressure O2 Arterial Blood Oxygen Content 23.2 Arterial Blood 0.1 Carboxyhemoglobin Arterial Blood Methemoglobin 1.4 Blood Gas Hemoglobin 16.4 Oxygen Delivery Device VENTILATOR Blood Gas Ventilator Setting 12/500/PEEP5 Blood Gas Inspired Oxygen 100 Nasal Screen MRSA (PCR) NEGATIVE Sodium Level 147 Potassium Level 3.7 Chloride Level 118 Carbon Dioxide Level 6.5 Anion Gap 23 Blood Urea Nitrogen 26 Creatinine 1.33 Estimat Glomerular Filtration 42 Rate Random Glucose 247 Calcium Level 7.7 Phosphorus Level 2.7 Magnesium Level 2.2 Test 08/25/16 08/25/16 08/25/16 08/25/16 07:05 09:00 09:50 09:59 Sodium Level 146 147 Potassium Level 3.5 3.4 Chloride Level 121 123 Carbon Dioxide Level 9.1 10.4 Anion Gap 16 14 Blood Urea Nitrogen 26 26 Creatinine 1.56 1.77 Estimat Glomerular Filtration 35 30 Rate Random Glucose 233 239 Calcium Level 7.3 7.5 Protein Corrected Calcium 8.7 Phosphorus Level 1.1 0.7 Magnesium Level 1.7 1.6 Total Protein 4.6 5.0 B-Hydroxybutyrate 3.76 1.92 Urine Random Creatinine 19.2 Urine Random Sodium 75 Urine Random Potassium 21 Urine Random Chloride 107 Urine Opiates Screen NEG Urine Barbiturates Screen NEG Urine Amphetamines Screen NEG Urine Benzodiazepines Screen NEG Urine Cocaine Screen NEG Urine Cannabinoids Screen NEG White Blood Count 10.8 Red Blood Count 4.44 Hemoglobin 14.2 Hematocrit 40.8 Mean Corpuscular Volume 91.9 Mean Corpuscular Hemoglobin 31.9 Mean Corpuscular Hemoglobin 34.7 Concent Red Cell Distribution Width 13.7 Platelet Count 140 Mean Platelet Volume 8.1 Neutrophils (%) (Auto) 84.0 Lymphocytes (%) (Auto) 6.3 Monocytes (%) (Auto) 9.0 Eosinophils (%) (Auto) 0.0 Basophils (%) (Auto) 0.7 Neutrophils # (Auto) 9.1 Lymphocytes # (Auto) 0.7 Monocytes # (Auto) 1.0 Eosinophils # (Auto) 0.0 Basophils # (Auto) 0.1 CBC Comment AUTO DIFF Differential Total Cells 100 Counted Neutrophils % (Manual) 65 Band Neutrophils % 10 Lymphocytes % 8 Monocytes % 11 Neutrophils # (Manual) 8.7 Myelocytes 6 Differential Comment FINAL DIFF MANUAL Platelet Estimate LOW Platelet Morphology Comment NORMAL Red Cell Morphology Comment NORMAL Prothrombin Time 10.7 Prothromb Time International 1.0 Ratio Serum Osmolality 315 Lactic Acid Level 0.7 Total Bilirubin 0.3 Aspartate Amino Transf 89 (AST/SGOT) Alanine Aminotransferase 53 (ALT/SGPT) Alkaline Phosphatase 98 Albumin 2.4 Triglycerides Level 514 Cholesterol Level 203 LDL Cholesterol HDL Cholesterol 35.2 Cholesterol/HDL Ratio 5.76 Lipase 3058 Thyroid Stimulating Hormone 1.780 3rd Gen Ethyl Alcohol Level LESS THAN 3 Blood Gas Puncture Site RT RADIAL Blood Gas Patient Temperature 98.6 Blood Gas HCO3 8 Blood Gas Base Excess -18.6 Blood Gas Oxygen Saturation 96 Arterial Blood pH 7.18 Arterial Blood Partial 23 Pressure CO2 Arterial Blood Partial 240 Pressure O2 Arterial Blood Oxygen Content 18.9 Arterial Blood 1.3 Carboxyhemoglobin Arterial Blood Methemoglobin 1.8 Blood Gas Hemoglobin 13.6 Oxygen Delivery Device VENTILATOR Blood Gas Ventilator Setting 500/AC12/PEEP5 Blood Gas Inspired Oxygen 50 Test 08/25/16 08/25/16 08/25/16 13:33 15:41 16:18 Sodium Level 150 149 Potassium Level 2.6 2.6 Chloride Level 125 123 Carbon Dioxide Level 13.2 15.5 Anion Gap 12 11 Blood Urea Nitrogen 27 29 Creatinine 1.88 2.13 Estimat Glomerular Filtration 28 24 Rate Random Glucose 226 227 Calcium Level 6.8 7.2 Protein Corrected Calcium 8.5 8.8 Phosphorus Level 0.3 0.3 Magnesium Level 1.4 1.4 Total Protein 4.0 4.3 Total Creatine Kinase 88 Blood Gas Puncture Site RT RADIAL Blood Gas Patient Temperature 98.6 Blood Gas HCO3 14 Blood Gas Base Excess -11.4 Blood Gas Oxygen Saturation 96 Arterial Blood pH 7.31 Arterial Blood Partial 28 Pressure CO2 Arterial Blood Partial 164 Pressure O2 Arterial Blood Oxygen Content 17.6 Arterial Blood 0.3 Carboxyhemoglobin Arterial Blood Methemoglobin 1.3 Blood Gas Hemoglobin 12.8 Oxygen Delivery Device VENTILATOR Blood Gas Ventilator Setting 12/500/+5+40% Blood Gas Inspired Oxygen 40 Date/Time Procedure Status Source Growth 08/25/16 10:00 Gram Stain Received Sputum Endotracheal Pending 08/25/16 10:00 Sputum Culture Received Sputum Endotracheal Pending 08/25/16 09:00 Legionella Antigen - Final Complete Urine Catheterized Urine PRESUMPTIVE NEGATIVE FOR LEGIONELLA P... 08/25/16 09:00 Streptococcus pneumoniae Antigen (M - Final Complete Urine Catheterized Urine PRESUMPTIVE NEGATIVE FOR STREPTOCOCCU... 08/24/16 19:30 Aerobic Blood Culture - Preliminary Resulted Blood Peripheral NO GROWTH IN 1 DAY 08/24/16 19:30 Anaerobic Blood Culture - Preliminary Resulted Blood Peripheral NO GROWTH IN 1 DAY Result Diagram: 08/25/16 0950 08/25/16 1541 Imaging Last Impressions Chest X-Ray 08/25/16 0000 Signed Impressions: Service Date/Time: Thursday, August 25, 2016 10:14 - CONCLUSION: 1. The endotracheal tube and NG tube are in good position. 2. The lungs are clear. Dipka Rodriguez MD Head CT 08/24/16 0000 Signed Impressions: Service Date/Time: Wednesday, August 24, 2016 20:35 - CONCLUSION: Unremarkable study. Jesus Ferreira MD Abdomen/Pelvis CT 08/24/16 0000 Signed Impressions: Service Date/Time: Wednesday, August 24, 2016 20:45 - CONCLUSION: There is moderate amount of stool throughout the colon and limited examination due to motion artifact. Possible focal areas of consolidation left lung base versus artifact. 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
[2016-08-25] MEDS: HEPARIN SODIUM - SQ 10,000 UNITS/ML VIAL SQ SCH (20:41)
[2016-08-25] MEDS: AZITHROMYCIN INJ 500 MG in SODIUM CHLOR 0.9% 250 ML INJ 250 ML IV SCH (20:42)
[2016-08-25 20:53] LABS: BETA-HYDROXYBUTYRATE 1.88 MMOL/L (0.00-0.39); BICARBONATE 15.8 MEQ/L (21.0-32.0); MAGNESIUM 2.2 MG/DL (1.5-2.5)
[2016-08-25 20:55] LABS: POTASSIUM 2.9 MEQ/L (3.5-5.1)
[2016-08-25 21:10] LABS: BLOOD GAS BASE EXCESS -11.1 mmol/L (-2-2); BLOOD GAS CARBOXYHEMOGLOBIN 1.2 % (0-4); BLOOD GAS HCO3 14 mmol/L (22-26); BLOOD GAS METHEMOGLOBIN 1.5 % (0-2); BLOOD GAS O2 HGB SATURATION 97 % (90-100); BLOOD GAS OXYGEN CONTENT 18.4 Vol % (12.0-20.0); BLOOD GAS PCO2 28 mmHg (38-42); BLOOD GAS PO2 175 mmHg (61-120); BLOOD GAS TOTAL HGB 13.3 G/DL (12.0-16.0); TEMP CORR TO 98.6
[2016-08-25 21:12] LABS: CRITICAL VALUE YES; DRAW SITE LT RADIAL; FIO2 40 %; NUMBER OF ARTERIAL PUNCTURES 1; OXYGEN DEVICE VENTILATOR; STAT NO; ULNAR PULSE PRESENT; VENT SETTINGS AC/12/500/PEEP5
[2016-08-26] VITALS (16 sets, daily range): BP systolic 87–112; BP diastolic 50–69; PULSE 95–118; RESP 12–20; TEMP 99.2–101.1; O2SAT 94–100
[2016-08-26] MEDS: PIPERACIL-TAZO 4.5 GM PREMIX 100 ML IV SCH ×2 (01:48→10:45)
[2016-08-26] MEDS: SODIUM BICARBONATE 8.4% INJ 150 MEQ in WATER STERILE FOR INJ 850 ML IV SCH ×4 (01:48→21:21)
[2016-08-26] MEDS: CHLORHEXIDINE GLUCONATE 2 % 1 PACK (2 CLOTHS) TOP SCH (03:53)
[2016-08-26] MEDS: INSULIN NovoLIN REGULAR SUPPLEMENTAL SCALE SQ SCH ×4 (04:00→21:23)
[2016-08-26 04:19] LABS: AUTOMATED NEUTROPHIL # 5.6 TH/MM3 (1.8-7.7); BASOPHIL # 0.1 TH/MM3 (0-0.2); HEMATOCRIT 37.7 % (35.0-46.0); LYMPH % 3.7 % (9.0-44.0); LYMPHOCYTE # 0.2 TH/MM3 (1.0-4.8); MEAN CORPUSCULAR HEMOGLOBIN 31.6 PG (27.0-34.0); MEAN CORPUSCULAR HGB CONC 35.1 % (32.0-36.0); MONO % 7.9 % (0.0-8.0); NEUT % 87.4 % (16.0-70.0); PLATELET COUNT 124 TH/MM3 (150-450); RED BLOOD COUNT 4.19 MIL/MM3 (4.00-5.30); RED CELL DISTRIBUTION WIDTH 14.3 % (11.6-17.2); WHITE BLOOD COUNT 6.4 TH/MM3 (4.0-11.0)
[2016-08-26 04:30] LABS: HEMO FLAGS AUTO DIFF
[2016-08-26 05:08] LABS: ALKALINE PHOSPHATASE 89 U/L (45-117); ALT (GPT) 36 U/L (10-53); ANION GAP 14 MEQ/L (5-15); AST (GOT) 32 U/L (15-37); BLOOD UREA NITROGEN 30 MG/DL (7-18); CHLORIDE 115 MEQ/L (98-107); GLOMERULAR FILTRATION RATE 20 ML/MIN (>89); SODIUM (NA) 147 MEQ/L (136-145); TOTAL BILIRUBIN ADULT 0.5 MG/DL (0.2-1.0)
[2016-08-26 05:12] LABS: POTASSIUM 2.7 MEQ/L (3.5-5.1)
[2016-08-26] MEDS ORDERED: POTASSIUM CHLORIDE 20 MEQ PWD PACKET G-TUBE ONE (05:45)
[2016-08-26] MEDS: FREE WATER G-TUBE SCH ×3 (05:54→21:22)
[2016-08-26 06:54] LABS: BANDS 15 % (0-6); BASOPHILS 1 % (0-2); NEUTROPHIL # MANUAL DIFF 5.8 TH/MM3 (1.8-7.7); POLYS (SEG NEUTROPHILS) 75 % (16-70); WBC DIFF SAMPLE 100
[2016-08-26 06:55] LABS: PLATELET ESTIMATE SMEAR LOW (NORMAL); PLATELET MORPHOLOGY NORMAL (NORMAL); SCAN/DIFF FINAL DIFF MANUAL
[2016-08-26] MEDS: DOCUSATE SODIUM 100 MG/10 ML UDC PO SCH ×2 (08:10→21:00)
[2016-08-26] MEDS: PANTOPRAZOLE SODIUM 40 MG VIAL IV PUSH SCH (08:10)
[2016-08-26] MEDS: HEPARIN SODIUM - SQ 10,000 UNITS/ML VIAL SQ SCH ×2 (08:11→21:22)
--- NOTE | 2016-08-26 08:58 | HHI.NPPN ---
Subjective History of Present Illness 51 year old with DKA,IDDM,[place] Objective Data Data 08/25/16 08/26/16 19:00 07:00 Intake Total 2850 ml 4187 ml Output Total 750 ml 850 ml Balance 2100 ml 3337 ml Intake IV Total 2850 ml 3657 ml Other 530 ml Output Urine Total 750 ml 850 ml Vital Signs Date Time Temp Pulse Resp B/P Pulse Ox O2 Delivery O2 Flow Rate FiO2 08/26/16 08:03 30 08/26/16 08:02 100 30 08/26/16 07:57 99 40 08/26/16 06:00 104 08/26/16 04:00 95 08/26/16 04:00 101.0 95 12 101/59 99 08/26/16 04:00 40 08/26/16 03:21 99 40 08/26/16 02:00 95 08/26/16 00:00 100 08/26/16 00:00 100.9 100 12 94/55 100 08/26/16 00:00 40 08/25/16 22:00 99 08/25/16 20:00 91 08/25/16 20:00 100.0 92 14 94/51 99 08/25/16 20:00 40 08/25/16 19:27 99 40 08/25/16 18:00 91 08/25/16 16:00 96 08/25/16 16:00 50 08/25/16 16:00 98.0 96 16 95/50 95 08/25/16 15:22 99 40 08/25/16 14:00 96 08/25/16 13:48 96 40 08/25/16 12:00 50 08/25/16 12:00 99.1 101 14 111/64 100 08/25/16 12:00 100 08/25/16 10:55 100 50 08/25/16 10:00 104 -: 08/26/16 0342 08/26/16 0342 Microbiology 08/25/16 Legionella Antigen - Final, Complete PRESUMPTIVE NEGATIVE FOR LEGIONELLA P... 08/25/16 Streptococcus pneumoniae Antigen (M - Final, Complete PRESUMPTIVE NEGATIVE FOR STREPTOCOCCU... 08/25/16 Gram Stain - Final, Resulted 08/25/16 Sputum Culture, Resulted Pending 08/25/16 Influenza Types A,B Antigen (CAILIN) - Final, Complete NEGATIVE FOR FLU A AND B ANTIGEN.... Physical Exam General Appearance: Well Developed, Well Nourished Eyes Eye Exam: Pupils Equal Neck Neck Exam: Neck Supple Pulmonary Resp Exam: Clear Bilaterally, Breath Sounds Equal Cardiology CV Exam: Regular, Normal Sinus Rhythm Gastrointestinal/Abdomen GI Exam: Soft, Non-Tender, Bowel Sounds Present Extremeties Extremities Exam: No Edema Neurologic Neuro Exam: Alert Assessment/Plan Problem List: (1) Acute renal failure Plan: ARF increase creatinine getting bicarb at 150 cc/hr and 1/4 Saline with KCL 20 meq at 50cc/hr I will increase to 75 cc/hr, free water at 250 cc q 8 may help k been given po4 been replaced Patient is doing better acidosis responded to bicarbonate there was no Osmolal gap urine electrolytes do not indicate any anion gap this is likely combination of Anion DKA+ Non Anion gap acidosis dehydration where renal response is proper ammonium excretion in exchange for Chloride hence the hyperchloremia (2) DKA (diabetic ketoacidoses) Plan: resolved (3) Metabolic acidosis Plan: She has hyperchloremic metabolic acidosis / non-anion gap acidosis and DKA resolved (4) Hypernatremia Plan: Likely due to total body water deficits getting 1/4 saline with KCL I increase the rate to 75 cc /hr (5) Pancreatitis Plan: Follow Lipase Problem Qualifiers (1) DKA (diabetic ketoacidoses): Qualified Code: E10.10 - Diabetic ketoacidosis without coma associated with type 1 diabetes mellitus Kwaku Justin MD Aug 26, 2016 08:58
[2016-08-26] MEDS ORDERED: MAGNESIUM SULFATE INJ 4 GM in SODIUM CHLORIDE 0.9% INJ 92 ML IV PRN (09:00)
[2016-08-26] MEDS ORDERED: SODIUM PHOSPHATE INJ 30 MMOL in SODIUM CHLOR 0.9% 250 ML INJ 240 ML IV PRN (09:00)
[2016-08-26] MEDS ORDERED: POTASSIUM PHOSPHATE INJ 30 MMOL in SODIUM CHLOR 0.9% 250 ML INJ 250 ML IV PRN (09:00)
[2016-08-26] MEDS: SENNOSIDES SYRUP 8.8 MG/5 ML CUP PO SCH (09:00)
[2016-08-26] MEDS ORDERED: MAGNESIUM SULFATE INJ 2 GM in SODIUM CHLORIDE 0.9% INJ 96 ML IV PRN (09:00)
[2016-08-26] MEDS ORDERED: MAGNESIUM OXIDE 400 MG TAB PO PRN (09:00)
[2016-08-26] MEDS ORDERED: POTASSIUM PHOSPHATE MONOBASIC 500 MG TAB PO PRN (09:00)
[2016-08-26] MEDS ORDERED: POTASSIUM PHOSPHATE MONOBASIC 500 MG TAB PO/TUBE PRN (09:00)
--- NOTE | 2016-08-26 10:14 | HHI.CCPN ---
Subjective Remarks/Hospital Course history of type 1 diabetes presents to emergency department complaining of nausea vomiting and abdominal pain also elevated blood glucose. Patient was tachypneic and appeared very drowsy and was intubated by ED physician for an airway protection. 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 Afebrile. On Insulin drip 11units/hr. 08/26: Arousable of sedation, following commands. Remains orally intubated on mechanical ventilation. Off insulin drip. Anion gap is corrected. Now has a hyperchloremic metabolic acidosis. She remains on bicarbonate drip. Objective Vital Signs Date Time Temp Pulse Resp B/P Pulse Ox O2 Delivery O2 Flow Rate FiO2 08/26/16 08:03 30 08/26/16 08:02 100 08/26/16 06:00 104 08/26/16 04:00 101.0 12 101/59 08/25/16 01:48 Ventilator 08/24/16 18:15 2 Intake and Output 08/25/16 08/25/16 08/26/16 08:00 16:00 00:00 Intake Total 5136 ml 2850 ml 2718 ml Output Total 1200 ml 750 ml 450 ml Balance 3936 ml 2100 ml 2268 ml Result Diagram: 08/26/16 0342 08/26/16 0342 Other Results Microbiology Date/Time Procedure Status Source Growth 08/25/16 09:00 Legionella Antigen - Final Complete Urine Catheterized Urine PRESUMPTIVE NEGATIVE FOR LEGIONELLA P... 08/25/16 09:00 Streptococcus pneumoniae Antigen (M - Final Complete Urine Catheterized Urine PRESUMPTIVE NEGATIVE FOR STREPTOCOCCU... 08/25/16 23:45 Influenza Types A,B Antigen (CAILIN) - Final Complete Nasal Washing NEGATIVE FOR FLU A AND B ANTIGEN.... Laboratory Tests Test 08/25/16 08/25/16 16:18 21:00 Blood Gas Puncture Site RT RADIAL LT RADIAL Blood Gas Patient Temperature 98.6 98.6 Blood Gas HCO3 14 mmol/L 14 mmol/L (22-26) (22-26) Blood Gas Base Excess -11.4 mmol/L -11.1 mmol/L (-2-2) (-2-2) Blood Gas Oxygen Saturation 96 % (90-100) 97 % (90-100) Arterial Blood pH 7.31 7.32 (7.380-7.420) (7.380-7.420) Arterial Blood Partial 28 mmHg (38-42) 28 mmHg (38-42) Pressure CO2 Arterial Blood Partial 164 mmHg 175 mmHg Pressure O2 (61-120) (61-120) Arterial Blood Oxygen Content 17.6 Vol % 18.4 Vol % (12.0-20.0) (12.0-20.0) Arterial Blood 0.3 % (0-4) 1.2 % (0-4) Carboxyhemoglobin Arterial Blood Methemoglobin 1.3 % (0-2) 1.5 % (0-2) Blood Gas Hemoglobin 12.8 G/DL 13.3 G/DL (12.0-16.0) (12.0-16.0) Oxygen Delivery Device VENTILATOR VENTILATOR Blood Gas Ventilator Setting 12/500/+5+40% AC/12/500/PEEP5 Blood Gas Inspired Oxygen 40 % 40 % Imaging Last Impressions Head CT 08/24/16 0000 Signed Impressions: Service Date/Time: Wednesday, August 24, 2016 20:35 - CONCLUSION: Unremarkable study. Jesus Ferreira MD Chest X-Ray 08/24/16 0000 Signed Impressions: Service Date/Time: Wednesday, August 24, 2016 23:47 - CONCLUSION: 1. Tip of the endotracheal tube at the level of the martha. Suggest retracting it 1-2 cm. 2. New left lower lobe infiltrate and tiny left effusion. Manish Harvey Jr., MD Abdomen/Pelvis CT 08/24/16 0000 Signed Impressions: Service Date/Time: Wednesday, August 24, 2016 20:45 - CONCLUSION: There is moderate amount of stool throughout the colon and limited examination due to motion artifact. Possible focal areas of consolidation left lung base versus artifact. Jesus Ferreira MD Objective Remarks GENERAL: Patient is sedated and intubated SKIN: Warm and dry. HEAD: Normocephalic. EYES: No scleral icterus. No injection or drainage. NECK: Supple, trachea midline. No JVD or lymphadenopathy. CARDIOVASCULAR: Regular rate and rhythm without murmurs, gallops, or rubs. RESPIRATORY: Breath sounds equal bilaterally. No accessory muscle use. GASTROINTESTINAL: Abdomen soft, vague tenderness, nondistended. MUSCULOSKELETAL: No cyanosis, or edema. Neuro: Arousable off sedation, following commands, moving all 4 extremities, grossly nonfocal Urinary Catheter: Yes Assessment to: Continue A/P Assessment and Plan Acute respiratory failure on mechanical ventilation Altered mental status DKA Leukocytosis Suspected pneumonia AG metabolic acidosis Hyperchloremic metabolic acidosis Elevated Lipase level Hypertriglyceridemia Question of pancreatitis Recent foreign travel to [place] s/p treatment for Malaria Plan Neuro: Was switched from propofol infusion to Fentanyl drip for sedation given elevated Lipase and TG levels. Daily sedation vacation when appropriate. CT brain negative for acute disease. Check UDS Pulm: On mechanical ventilation, tolerating C Pap trials, ordered extubation. Bronchodilators, ICU vent bundle. CV: Monitor HR and BP keep MAP>65mmHg. Watch for hypotension. : Monitor renal function, I/O's, avoid nephrotoxins. Electrolytes replacement per protocol. Change IVF SW+3amps bicarb @150ml/hr, check CK's, Renal -Dr. Justin. Place on Free H20 250ml Q8, monitor Sodium level. GI: Place on Protonix 40mg daily for GI prophylaxis- Monitor Lipase level and check Triglycerides level. CT abdomen/pelvis: No acute findings Place on Colace, Senna for bowel regimen. ID: Place on abx Zosyn, Vanco x1 dose, monitor for signs of infections ( Fever, WBC) Check sputum cx, strep pneumonia and Legionella urinary Ag. Follow up on BC from 08/24, ID eval. Endo: Off insulin drip. On SSI with long acting insulin once AG is closed. Beta hydroxybutyrate 3.76 this morning from 10.4 on arrival. Check TSH level. Heme: Monitor CBC, Coags GI prophylaxis- Protonix 40mg daily DVT prophylaxis- SCD, Heparin SQ ID/nephrology following. If she tolerates extubation today, will consider transfer to hospitalist service for tomorrow. Mohit Nye MD Aug 26, 2016 10:14
[2016-08-26] MEDS ORDERED: POTASSIUM CHLORIDE 20 MEQ PWD PACKET PO ONE (10:15)
[2016-08-26] MEDS ORDERED: SODIUM PHOSPHATE INJ 30 MMOL in SODIUM CHLOR 0.9% 250 ML INJ 250 ML IV ONE (11:00)
[2016-08-26] MEDS ORDERED: POTASSIUM PHOSPHATE INJ 30 MMOL in SODIUM CHLOR 0.9% 250 ML INJ 250 ML IV ONE (11:00)
[2016-08-26] MEDS: SODIUM CHLORIDE 23.4% INJ 38.5 MEQ, POTASSIUM CHLORIDE INJ 20 MEQ in WATER STERILE FOR ... IV SCH (11:17)
[2016-08-26 11:28] LABS: BICARBONATE 23.9 MEQ/L (21.0-32.0); MAGNESIUM 1.9 MG/DL (1.5-2.5)
[2016-08-26 11:33] LABS: POTASSIUM 2.7 MEQ/L (3.5-5.1)
[2016-08-26] MEDS: PIPERACIL-TAZO 3.375 GM PREMIX 50 ML IV SCH ×2 (17:05→21:24)
[2016-08-26] MEDS: AZITHROMYCIN INJ 500 MG in SODIUM CHLOR 0.9% 250 ML INJ 250 ML IV SCH (21:22)
[2016-08-26 23:59] LABS: POTASSIUM 2.6 MEQ/L (3.5-5.1)
[2016-08-27] VITALS (13 sets, daily range): BP systolic 93–123; BP diastolic 57–72; PULSE 87–100; RESP 16–22; TEMP 97.9–99.2; O2SAT 94–98
[2016-08-27] MEDS ORDERED: POTASSIUM CHLORIDE 20 MEQ CONTROLLED RELEASE TAB PO ONE ×2 (00:45→17:30)
[2016-08-27] MEDS: INSULIN NovoLIN REGULAR SUPPLEMENTAL SCALE SQ SCH ×4 (04:00→22:27)
[2016-08-27] MEDS: CHLORHEXIDINE GLUCONATE 2 % 1 PACK (2 CLOTHS) TOP SCH (04:00)
[2016-08-27] MEDS: SODIUM CHLORIDE 23.4% INJ 38.5 MEQ, POTASSIUM CHLORIDE INJ 20 MEQ in WATER STERILE FOR ... IV SCH (05:33)
[2016-08-27] MEDS: PIPERACIL-TAZO 3.375 GM PREMIX 50 ML IV SCH ×3 (05:33→16:04)
[2016-08-27] MEDS: SODIUM BICARBONATE 8.4% INJ 150 MEQ in WATER STERILE FOR INJ 850 ML IV SCH (05:34)
[2016-08-27] MEDS: FREE WATER G-TUBE SCH ×3 (05:34→22:00)
[2016-08-27] MEDS ORDERED: POTASSIUM CHLORIDE 20 MEQ PWD PACKET PO ONE ×2 (08:00→19:00)
[2016-08-27] MEDS: PANTOPRAZOLE SODIUM 40 MG VIAL IV PUSH SCH (08:42)
[2016-08-27] MEDS: SENNOSIDES SYRUP 8.8 MG/5 ML CUP PO SCH (08:43)
[2016-08-27] MEDS: HEPARIN SODIUM - SQ 10,000 UNITS/ML VIAL SQ SCH ×2 (08:43→22:04)
[2016-08-27] MEDS: DOCUSATE SODIUM 100 MG/10 ML UDC PO SCH ×2 (08:44→22:04)
[2016-08-27 10:15] LABS: BICARBONATE 29.4 MEQ/L (21.0-32.0); MAGNESIUM 1.7 MG/DL (1.5-2.5); POTASSIUM 3.5 MEQ/L (3.5-5.1)
--- NOTE | 2016-08-27 10:20 | HHI.PR ---
Subjective Remarks Patient tells me that she feels nauseous after taking the potassium pills. She denies any chest pain or shortness of breath. She does admit to a cough. She denies any sick contacts while in [place] that she knows of. Sisters at bedside. Objective Vitals Vital Signs Date Time Temp Pulse Resp B/P Pulse Ox O2 Delivery O2 Flow Rate FiO2 08/27/16 08:00 98.6 96 20 93/57 97 08/27/16 08:00 96 08/27/16 06:00 91 08/27/16 04:00 95 08/27/16 04:00 99.0 95 18 97/59 94 08/27/16 02:00 93 08/27/16 00:00 99.2 97 16 94/61 97 08/27/16 00:00 97 08/26/16 22:00 98 08/26/16 20:00 99.2 104 18 87/50 94 08/26/16 20:00 104 08/26/16 18:00 112 08/26/16 16:00 99.2 110 20 91/55 96 08/26/16 16:00 110 08/26/16 14:00 110 08/26/16 12:00 101.1 111 16 95/54 96 08/26/16 12:00 111 I/O 08/26/16 08/26/16 08/26/16 08/27/16 08/27/16 08/27/16 07:00 15:00 23:00 07:00 15:00 23:00 Intake Total 1469 ml 2213 ml 2143 ml 2165 ml Output Total 400 ml 475 ml 100 ml 400 ml Balance 1069 ml 1738 ml 2043 ml 1765 ml Intake Oral 240 ml 250 ml 720 ml IV Total 1219 ml 1673 ml 1893 ml 1445 ml Other 250 ml 300 ml Output Urine Total 400 ml 475 ml 100 ml 400 ml # Voids 1 # Bowel Movements 1 2 Result Diagram: 08/26/16 0342 08/27/16 0920 Imaging Last Impressions Chest X-Ray 08/25/16 0000 Signed Impressions: Service Date/Time: Thursday, August 25, 2016 10:14 - CONCLUSION: 1. The endotracheal tube and NG tube are in good position. 2. The lungs are clear. Dipak Rodriguez MD Head CT 08/24/16 0000 Signed Impressions: Service Date/Time: Wednesday, August 24, 2016 20:35 - CONCLUSION: Unremarkable study. Jesus Ferreira MD Abdomen/Pelvis CT 08/24/16 0000 Signed Impressions: Service Date/Time: Wednesday, August 24, 2016 20:45 - CONCLUSION: There is moderate amount of stool throughout the colon and limited examination due to motion artifact. Possible focal areas of consolidation left lung base versus artifact. Jesus Ferreira MD Objective Remarks GENERAL: Patient is sedated and intubated CARDIOVASCULAR: Regular rate and rhythm without murmurs RESPIRATORY: Breath sounds equal bilaterally. Faint crackles at the left base noted. Patient does have a mild cough on exam GASTROINTESTINAL: Abdomen soft, vague tenderness, nondistended. MUSCULOSKELETAL: Neuro: Awake and alert. Answers questions appropriately. Moves all 4 extremities. Edema noted in lower extremities A/P Assessment and Plan Acute respiratory failure on mechanical ventilation Altered mental status DKA Leukocytosis Suspected pneumonia AG metabolic acidosis Hyperchloremic metabolic acidosis Elevated Lipase level Hypertriglyceridemia Question of pancreatitis Recent foreign travel to [place] s/p treatment for Malaria Plan Neuro: Status post extubation CT brain negative for acute disease. UDS negative Pulm: Status post extubation. CT abdomen left lower lobe pneumonia versus artifact however chest x-ray was clear. Patient does have a cough. I have added incentive spirometer to be used every 1 hour. Patient has been afebrile today. She did have an temperature of 101.1 yesterday CV: Monitor HR and BP keep MAP>65mmHg. Blood pressure is low normal. : Monitor renal function, I/O's, avoid nephrotoxins. Electrolytes replacement per protocol. Nephrology following. On IV fluids bicarb gtt and 05/27 NS. I will switch her to NS w 20mEq KCl @75 ml/hr for gentle hydration as her sodium dropped from 150 to 143. CK's normal continue Free H20 250ml Q8, recheck Recheck Na level later today. GI: Place on Protonix 40mg daily for GI prophylaxis- lipase back to normal. CT abdomen/pelvis: No acute findings Place on Colace, Senna for bowel regimen. ID: on abx Zosyn, Vanco x1 dose, azithro monitor for signs of infections ( Fever , WBC) sputum cx NGTD, strep pneumonia and Legionella urinary Ag neg. Follow up on BC from 08/24, ID following. Endo: Off insulin drip. on insulin R sliding scale. add levemir 5unit qhs Beta hydroxybutyrate down to 1.88 TSH 1.78. Heme: Monitor CBC, Coags GI prophylaxis- Protonix 40mg daily DVT prophylaxis- SCD, Heparin SQ Discharge Planning transfer to regular floor. awaiting final recs from ID and renal. Monitor sodium levels closely. Tereza Michele MD Aug 27, 2016 10:20
[2016-08-27] MEDS ORDERED: POTASSIUM CHLORIDE INJ 20 MEQ in SODIUM CHLOR 0.9% 1000 ML INJ 1,000 ML IV SCH (11:30)
[2016-08-27] MEDS: NS + KCL 20 MEQ INJ 1,000 ML IV SCH ×2 (11:45→22:27)
--- NOTE | 2016-08-27 14:56 | HHI.NPPN ---
Subjective History of Present Illness 51 year old with DKA,IDDM,[place] Objective Data Data 08/26/16 08/27/16 19:00 07:00 Intake Total 2213 ml 4308 ml Output Total 575 ml 400 ml Balance 1638 ml 3908 ml Intake Oral 240 ml 970 ml IV Total 1673 ml 3338 ml Other 300 ml Output Urine Total 575 ml 400 ml # Voids 1 # Bowel Movements 1 2 Vital Signs Date Time Temp Pulse Resp B/P Pulse Ox O2 Delivery O2 Flow Rate FiO2 08/27/16 14:00 100 08/27/16 12:00 98.6 94 22 94/67 95 08/27/16 12:00 94 08/27/16 10:00 94 08/27/16 08:00 98.6 96 20 93/57 97 08/27/16 08:00 96 08/27/16 06:00 91 08/27/16 04:00 95 08/27/16 04:00 99.0 95 18 97/59 94 08/27/16 02:00 93 08/27/16 00:00 99.2 97 16 94/61 97 08/27/16 00:00 97 08/26/16 22:00 98 08/26/16 20:00 99.2 104 18 87/50 94 08/26/16 20:00 104 08/26/16 18:00 112 08/26/16 16:00 99.2 110 20 91/55 96 08/26/16 16:00 110 -: 08/26/16 0342 08/27/16 0920 Physical Exam General Appearance: Well Developed, Well Nourished Eyes Eye Exam: Pupils Equal Neck Neck Exam: Neck Supple Pulmonary Resp Exam: Clear Bilaterally, Breath Sounds Equal Cardiology CV Exam: Regular, Normal Sinus Rhythm Gastrointestinal/Abdomen GI Exam: Soft, Non-Tender, Bowel Sounds Present Extremeties Extremities Exam: No Edema Neurologic Neuro Exam: Alert Assessment/Plan Problem List: (1) Acute renal failure Plan: Patient is recovering from ARF cr decliing, she received IV contrast and I think this may have slowed the recovery of Kidney functions but encouraging sign is Cr declined d/w family Follow BMP NS with KCL (2) DKA (diabetic ketoacidoses) Plan: resolved (3) Metabolic acidosis Plan: resolved (4) Hypernatremia Plan: resolved (5) Pancreatitis Plan: resolved Problem Qualifiers (1) DKA (diabetic ketoacidoses): Qualified Code: E10.10 - Diabetic ketoacidosis without coma associated with type 1 diabetes mellitus Kwaku Justin MD Aug 27, 2016 14:56
[2016-08-27 16:48] LABS: BICARBONATE 24.9 MEQ/L (21.0-32.0); POTASSIUM 3.4 MEQ/L (3.5-5.1)
--- NOTE | 2016-08-27 18:05 | HHI.IDPN ---
Subjective Subjective Remarks doing well extubated takes full diet no abd pain no fever Antibiotics zosyn azithro Allergies: Coded Allergies: No Known Allergies (Unverified , 08/24/16) Objective . Vital Signs Date Time Temp Pulse Resp B/P Pulse Ox O2 Delivery O2 Flow Rate FiO2 08/27/16 16:00 98.4 91 20 123/72 96 08/27/16 16:00 91 08/27/16 14:00 100 08/27/16 12:00 98.6 94 22 94/67 95 08/27/16 12:00 94 08/27/16 10:00 94 08/27/16 08:00 98.6 96 20 93/57 97 08/27/16 08:00 96 08/27/16 06:00 91 08/27/16 04:00 95 08/27/16 04:00 99.0 95 18 97/59 94 08/27/16 02:00 93 08/27/16 00:00 99.2 97 16 94/61 97 08/27/16 00:00 97 08/26/16 22:00 98 08/26/16 20:00 99.2 104 18 87/50 94 08/26/16 20:00 104 08/26/16 18:00 112 08/26/16 08/26/16 08/27/16 15:00 23:00 07:00 Intake Total 2213 ml 2143 ml 2165 ml Output Total 475 ml 100 ml 400 ml Balance 1738 ml 2043 ml 1765 ml Intake Oral 240 ml 250 ml 720 ml IV Total 1673 ml 1893 ml 1445 ml Other 300 ml Output Urine Total 475 ml 100 ml 400 ml # Voids 1 # Bowel Movements 1 2 . Laboratory Tests Test 08/26/16 03:42 White Blood Count 6.4 TH/MM3 Red Blood Count 4.19 MIL/MM3 Hemoglobin 13.2 GM/DL Hematocrit 37.7 % Mean Corpuscular Volume 90.0 FL Mean Corpuscular Hemoglobin 31.6 PG Mean Corpuscular Hemoglobin 35.1 % Concent Red Cell Distribution Width 14.3 % Platelet Count 124 TH/MM3 Mean Platelet Volume 8.2 FL Neutrophils (%) (Auto) 87.4 % Lymphocytes (%) (Auto) 3.7 % Monocytes (%) (Auto) 7.9 % Eosinophils (%) (Auto) 0.0 % Basophils (%) (Auto) 1.0 % Neutrophils # (Auto) 5.6 TH/MM3 Lymphocytes # (Auto) 0.2 TH/MM3 Monocytes # (Auto) 0.5 TH/MM3 Eosinophils # (Auto) 0.0 TH/MM3 Basophils # (Auto) 0.1 TH/MM3 CBC Comment AUTO DIFF Differential Total Cells 100 Counted Neutrophils % (Manual) 75 % Band Neutrophils % 15 % Lymphocytes % 4 % Monocytes % 5 % Basophils % 1 % Neutrophils # (Manual) 5.8 TH/MM3 Differential Comment FINAL DIFF MANUAL Platelet Estimate LOW Platelet Morphology Comment NORMAL Red Cell Morphology Comment NORMAL Laboratory Tests Test 08/25/16 08/26/16 08/26/16 08/26/16 19:29 03:42 10:10 23:12 Sodium Level 148 MEQ/L 147 MEQ/L 150 MEQ/L Potassium Level 2.9 MEQ/L 2.7 MEQ/L 2.7 MEQ/L 2.6 MEQ/L Chloride Level 119 MEQ/L 115 MEQ/L 114 MEQ/L Carbon Dioxide Level 15.8 MEQ/L 18.0 MEQ/L 23.9 MEQ/L Anion Gap 13 MEQ/L 14 MEQ/L 12 MEQ/L Blood Urea Nitrogen 29 MG/DL 30 MG/DL 31 MG/DL Creatinine 2.22 MG/DL 2.52 MG/DL 2.71 MG/DL Estimat Glomerular Filtration 23 ML/MIN 20 ML/MIN 18 ML/MIN Rate Random Glucose 249 MG/DL 260 MG/DL 245 MG/DL Calcium Level 7.7 MG/DL 7.6 MG/DL 7.5 MG/DL Phosphorus Level 1.3 MG/DL 2.3 MG/DL 2.1 MG/DL 3.2 MG/DL Magnesium Level 2.2 MG/DL 2.0 MG/DL 1.9 MG/DL Total Bilirubin 0.5 MG/DL Aspartate Amino Transf 32 U/L (AST/SGOT) Alanine Aminotransferase 36 U/L (ALT/SGPT) Alkaline Phosphatase 89 U/L Total Protein 4.8 GM/DL Albumin 2.1 GM/DL Lipase 450 U/L Test 08/27/16 08/27/16 09:20 15:53 Sodium Level 143 MEQ/L 141 MEQ/L Potassium Level 3.5 MEQ/L 3.4 MEQ/L Chloride Level 104 MEQ/L 104 MEQ/L Carbon Dioxide Level 29.4 MEQ/L 24.9 MEQ/L Anion Gap 10 MEQ/L 12 MEQ/L Blood Urea Nitrogen 29 MG/DL 30 MG/DL Creatinine 2.59 MG/DL 2.57 MG/DL Estimat Glomerular Filtration 19 ML/MIN 20 ML/MIN Rate Random Glucose 217 MG/DL 353 MG/DL Calcium Level 7.5 MG/DL 7.5 MG/DL Phosphorus Level 2.9 MG/DL Magnesium Level 1.7 MG/DL Lipase 205 U/L Microbiology Date/Time Procedure Status Source Growth 08/24/16 19:20 Aerobic Blood Culture - Preliminary Resulted Blood Peripheral NO GROWTH IN 3 DAYS 08/24/16 19:20 Anaerobic Blood Culture - Preliminary Resulted Blood Peripheral NO GROWTH IN 3 DAYS 08/24/16 19:30 Aerobic Blood Culture - Preliminary Resulted Blood Peripheral NO GROWTH IN 3 DAYS 08/24/16 19:30 Anaerobic Blood Culture - Preliminary Resulted Blood Peripheral NO GROWTH IN 3 DAYS 08/25/16 09:00 Legionella Antigen - Final Complete Urine Catheterized Urine PRESUMPTIVE NEGATIVE FOR LEGIONELLA P... 08/25/16 09:00 Streptococcus pneumoniae Antigen (M - Final Complete Urine Catheterized Urine PRESUMPTIVE NEGATIVE FOR STREPTOCOCCU... 08/25/16 10:00 Gram Stain - Final Complete Sputum Endotracheal 08/25/16 10:00 Sputum Culture - Final Complete Sputum Endotracheal MODERATE GROWTH NORMAL RESPIRATORY VIJAYA 08/25/16 23:45 Influenza Types A,B Antigen (CAILIN) - Final Complete Nasal Washing NEGATIVE FOR FLU A AND B ANTIGEN.... Imaging Last Impressions Chest X-Ray 08/25/16 0000 Signed Impressions: Service Date/Time: Thursday, August 25, 2016 10:14 - CONCLUSION: 1. The endotracheal tube and NG tube are in good position. 2. The lungs are clear. Dipak Rodriguez MD Head CT 08/24/16 0000 Signed Impressions: Service Date/Time: Wednesday, August 24, 2016 20:35 - CONCLUSION: Unremarkable study. Jesus Ferreira MD Abdomen/Pelvis CT 08/24/16 0000 Signed Impressions: Service Date/Time: Wednesday, August 24, 2016 20:45 - CONCLUSION: There is moderate amount of stool throughout the colon and limited examination due to motion artifact. Possible focal areas of consolidation left lung base versus artifact. Jesus Ferreira MD Physical Exam CONSTITUTIONAL/GENERAL: This is an adequately nourished patient, in no apparent distress. TUBES/LINES/DRAINS: SKIN: No jaundice, rashes, or lesions. Skin temperature appropriate. Not diaphoretic. EYES: Pupils equal and round and reactive. Extraocular motions intact. No scleral icterus. No injection or drainage. Fundi not examined. ENT: Hearing grossly normal. Nose without bleeding or purulent drainage. CARDIOVASCULAR: Regular rate and rhythm without murmurs, gallops, or rubs. No JVD. Peripheral pulses symmetric. RESPIRATORY/CHEST: Symmetric, unlabored respirations. Clear to auscultation. Breath sounds equal bilaterally. No wheezes, rales, or rhonchi. GASTROINTESTINAL: Abdomen soft, non-tender, nondistended. No hepato-splenomegaly , or palpable masses. No guarding. Bowel sounds present. MUSCULOSKELETAL: Extremities without clubbing, cyanosis, or edema. NEUROLOGICAL: fully awawke alert non focal following commands PSYCHIATRIC: calm and cooperative Assessment & Plan Remarks DKA - resolved - poorly controlled DM with Hb A1C over 11 few mos ago Acute VDRF mainly 2/2 profoung metabiloic acidosis: resolved Non anion gap hyperchloremic acidosis currently Low grade fever, luekocytosis: resolved L lung consolidation Fever in returning travlller - dw pt: no smx of febrile illness while in [place] ([facility], [facility]) and after return about 2 wks ago - she only briefly had fever after admission and it resolved H/o malaria sp tx 2 yrs ago MS change - likely metabolic; doubt [employer] infection since MS rapidly improved with DKA correction ARF, Bandemia PLAN: fu WBC fu BC untill final dc azithromycin after 5 days (can switch to po) Valencia Bello MD Aug 27, 2016 18:05
[2016-08-27] MEDS: INSULIN DETEMIR 100 UNITS/ML VIAL SQ SCH (21:00)
[2016-08-27] MEDS: AZITHROMYCIN INJ 500 MG in SODIUM CHLOR 0.9% 250 ML INJ 250 ML IV SCH (22:07)
[2016-08-28] VITALS (8 sets, daily range): BP systolic 102–117; BP diastolic 59–78; PULSE 83–96; RESP 16–20; TEMP 97.6–99.1; O2SAT 95–99
[2016-08-28] MEDS: INSULIN NovoLIN REGULAR SUPPLEMENTAL SCALE SQ SCH ×4 (03:39→21:17)
[2016-08-28] MEDS: CHLORHEXIDINE GLUCONATE 2 % 1 PACK (2 CLOTHS) TOP SCH (04:00)
[2016-08-28] MEDS: FREE WATER G-TUBE SCH ×3 (06:00→21:15)
[2016-08-28 07:45] LABS: AUTOMATED NEUTROPHIL # 2.6 TH/MM3 (1.8-7.7); BASOPHIL % 0.6 % (0.0-2.0); EOSINOPHIL # 0.1 TH/MM3 (0-0.4); EOSINOPHIL % 1.5 % (0.0-4.0); LYMPH % 29.8 % (9.0-44.0); LYMPHOCYTE # 1.3 TH/MM3 (1.0-4.8); MEAN CORPUSCULAR HEMOGLOBIN 31.2 PG (27.0-34.0); MEAN CORPUSCULAR HGB CONC 33.9 % (32.0-36.0); MONO % 8.5 % (0.0-8.0); NEUT % 59.6 % (16.0-70.0); PLATELET COUNT 99 TH/MM3 (150-450); RED CELL DISTRIBUTION WIDTH 14.1 % (11.6-17.2); WHITE BLOOD COUNT 4.4 TH/MM3 (4.0-11.0)
[2016-08-28 07:47] LABS: HEMO FLAGS AUTO DIFF
[2016-08-28 07:57] LABS: BICARBONATE 29.7 MEQ/L (21.0-32.0); MAGNESIUM 1.9 MG/DL (1.5-2.5); POTASSIUM 3.1 MEQ/L (3.5-5.1)
[2016-08-28 08:37] LABS: BANDS 20 % (0-6); BASOPHILS 1 % (0-2); METAMYELOCYTES 2 % (0-1); NEUTROPHIL # MANUAL DIFF 2.6 TH/MM3 (1.8-7.7); POLYS (SEG NEUTROPHILS) 36 % (16-70); WBC DIFF SAMPLE 100
[2016-08-28 08:38] LABS: PLATELET ESTIMATE SMEAR LOW (NORMAL); PLATELET MORPHOLOGY NORMAL (NORMAL)
[2016-08-28 08:40] LABS: SCAN/DIFF FINAL DIFF MANUAL
[2016-08-28] MEDS: SENNOSIDES SYRUP 8.8 MG/5 ML CUP PO SCH (09:37)
[2016-08-28] MEDS: DOCUSATE SODIUM 100 MG/10 ML UDC PO SCH (09:37)
[2016-08-28] MEDS: PANTOPRAZOLE SODIUM 40 MG VIAL IV PUSH SCH (09:39)
[2016-08-28] MEDS: HEPARIN SODIUM - SQ 10,000 UNITS/ML VIAL SQ SCH ×2 (09:39→21:15)
[2016-08-28] MEDS ORDERED: POTASSIUM CHLORIDE 10 MEQ CONTROLLED RELEASE TAB PO ONE (11:45)
--- NOTE | 2016-08-28 11:45 | HHI.PR ---
Subjective Remarks states feels better denies fevers/chills feels "puffy" states had episode of diarrhea this am, denies abdominal pain, nausea or vomiting. Objective Vitals Vital Signs Date Time Temp Pulse Resp B/P Pulse Ox O2 Delivery O2 Flow Rate FiO2 08/28/16 08:10 90 08/28/16 08:00 98.0 84 18 111/71 97 08/28/16 04:00 97.6 83 17 102/69 98 08/28/16 00:00 98.4 94 16 108/63 96 08/28/16 00:00 97.9 85 18 109/59 95 08/27/16 21:11 87 08/27/16 20:04 97 21 08/27/16 20:00 97.9 91 17 99/64 98 08/27/16 18:00 96 08/27/16 16:00 98.4 91 20 123/72 96 08/27/16 16:00 91 08/27/16 14:00 100 08/27/16 12:00 98.6 94 22 94/67 95 08/27/16 12:00 94 I/O 08/27/16 08/27/16 08/27/16 08/28/16 08/28/16 08/28/16 07:00 15:00 23:00 07:00 15:00 23:00 Intake Total 2165 ml 1776 ml 450 ml 240 ml Output Total 400 ml 800 ml 450 ml 500 ml Balance 1765 ml 976 ml 0 ml -260 ml Intake Oral 720 ml 1000 ml 450 ml 240 ml IV Total 1445 ml 776 ml Output Urine Total 400 ml 800 ml 450 ml 500 ml # Voids 1 3 # Bowel Movements 2 Result Diagram: 08/28/16 0700 08/28/16 0700 Imaging Last Impressions Chest X-Ray 08/25/16 0000 Signed Impressions: Service Date/Time: Thursday, August 25, 2016 10:14 - CONCLUSION: 1. The endotracheal tube and NG tube are in good position. 2. The lungs are clear. Dipak Rodriguez MD Head CT 08/24/16 0000 Signed Impressions: Service Date/Time: Wednesday, August 24, 2016 20:35 - CONCLUSION: Unremarkable study. Jesus Ferreira MD Abdomen/Pelvis CT 08/24/16 0000 Signed Impressions: Service Date/Time: Wednesday, August 24, 2016 20:45 - CONCLUSION: There is moderate amount of stool throughout the colon and limited examination due to motion artifact. Possible focal areas of consolidation left lung base versus artifact. Jesus Ferreira MD Objective Remarks GENERAL: AAOx3, NAD SKIN: Warm and dry. HEAD: Atraumatic. Normocephalic. EYES: Pupils equal and round. No scleral icterus. No injection or drainage. ENT: No nasal bleeding or discharge. Mucous membranes pink and moist. NECK: Trachea midline. No JVD. CARDIOVASCULAR: Regular rate and rhythm. RESPIRATORY: No accessory muscle use. Clear to auscultation. Breath sounds equal bilaterally. GASTROINTESTINAL: Abdomen soft, non-tender, nondistended. Hepatic and splenic margins not palpable. MUSCULOSKELETAL: Extremities without clubbing, cyanosis, or edema. No obvious deformities. NEUROLOGICAL: Awake and alert. No obvious cranial nerve deficits. Motor grossly within normal limits. Five out of 5 muscle strength in the arms and legs. Normal speech. PSYCHIATRIC: Appropriate mood and affect; insight and judgment normal. Medications and IVs Current Medications Medications (Trade) Dose Ordered Sig/Billie Route Start Time Stop Time Status Last Admin Miscellaneous Information 1 [id number] XX 08/24/16 22:00 08/24/16 22:00 (Chlorhexidine 2% Cloth) 3 pack Taper DAILY@04 TOP 08/25/16 04:00 08/21/17 03:59 08/27/16 04:00 Chlorhexidine Gluconate 3 pack 3 pack UNSCH PRN TOP 08/24/16 22:00 (Versed Inj) 100 ml @ 0 mls/hr TITRATE IV 08/25/16 02:30 (Senna Liq) 8.8 mg DAILY PO 08/25/16 10:00 08/28/16 09:37 (Colace Liq) 100 mg Q12HR PO 08/25/16 10:00 08/28/16 09:37 (Protonix Inj) 40 mg DAILY IV PUSH 08/25/16 10:00 08/28/16 09:39 Heparin Sodium (Porcine) 5000 units 5,000 units Q12HR SQ 08/25/16 21:00 08/28/16 09:39 (fentaNYL DRIP) 250 ml @ 0 mls/hr TITRATE IV 08/25/16 11:45 08/26/16 08:11 (Free Water) 250 ml Q8HR G-TUBE 08/25/16 15:00 08/27/16 05:34 (D50w (Vial) Inj) 25 ml UNSCH PRN IV PUSH 08/25/16 15:00 (Glucagon Inj) 1 mg UNSCH PRN OTHER 08/25/16 15:00 Insulin Human Regular 1 1 Q6H SQ 08/25/16 16:00 08/28/16 03:39 (Zithromax Inj/ NS 250 ml Inj) 250 ml @ 250 mls/hr Q24H IV 08/25/16 20:00 08/27/16 22:07 Insulin Detemir 5 units 5 units HS SQ 08/27/16 21:00 08/27/16 21:00 (NS + KCl 40 Meq Inj) 1,000 ml @ 84 mls/hr [id number] IV 08/28/16 11:45 Urinary Catheter: No Vascular Central Line Catheter: No A/P Problem List: (1) Acute hypoxemic respiratory failure ICD Code: J96.01 Status: Resolved Plan: Was admitted to the intensive care unit initially under the care of the associate buyer. The patient was intubated and mechanically ventilated. The patient status post extubation. Mr. failure has resolved. The patient is currently satting well on room air. (2) Acute renal failure ICD Code: N17.9 Status: Acute Plan: The patient initially on IV fluids with bicarbonate drip and one fourth normal saline in intensive care unit. Sodium dropped from 150-143. CKs normal. Patient was started on normal saline with 20 mEq of KCl at 75 mL as per our for gentle hydration. I will increase the quantity of potassium in the fluids to 40 mEq. Nephrology consulted and following. Creatinine trending down. Continue to monitor BUN/creatinine, avoid nephrotoxins. Monitor strict I's and O's. Patient has excellent urine output. (3) Encephalopathy acute ICD Code: G93.40 Status: Resolved Plan: Likely metabolic encephalopathy from hypernatremia and DKA. Now resolved. (4) DKA (diabetic ketoacidoses) ICD Code: E13.10 Status: Resolved Plan: Resolved after treatment with IV insulin drip. The patient is currently on insulin Levemir 5 units subcutaneous at at bedtime and SSI with insulin NovoLog. Continue with same routine since blood sugars are much improved. Check hemoglobin A1c. (5) Leukocytosis ICD Code: D72.829 Status: Resolved Plan: Likely reactive secondary to sepsis and stress. WBC now down to normal levels. Continue to monitor CBC. Patient however still presents bands. Continue to monitor CBC with differential. (6) High anion gap metabolic acidosis ICD Code: E87.2 Status: Resolved Plan: Now resolved after treatment of DKA. (7) Pancreatitis ICD Code: K85.90 Status: Resolved Plan: Patient initially presented with lipase of 8874, now down to normal. The patient tolerating diet. (8) Hypertriglyceridemia ICD Code: E78.1 Status: Acute Plan: Patient has elevated cholesterol with elevated triglycerides, total cholesterol 203, triglycerides of 514, HDL course of 35.2. (9) Hypernatremia ICD Code: E87.0 Status: Resolved Plan: Now resolved after treatment with half-normal saline. Half-normal saline has been discontinued and sodium slightly went up from 143-145. We'll continue normal saline, however if sodium continues to increase 10 we'll switch to half normal saline. (10) Recent travel to [facility] [place] ICD Code: Z78.9 Status: Acute Plan: ID following. Respiratory isolation has been discontinued as per ID recommendations. Infectious disease discussed with patient. She had no symptoms of febrile illness while in [facility] ([facility]) and after return about 2 wks ago. (11) Sepsis ICD Code: A41.9 Status: Acute Plan: Sepsis secondary to pneumonia. Left lower lobe infiltrate on chest x- ray upon admission. Present on admission, patient with leukocytosis, bandemia, heart rate over 90 and respiratory failure. Seems to be improving. Bandemia suppressant of 20%, however leukocytosis down to normal. Had some low-grade temps while hospitalized, however no fevers since 08/26/16. ID following. Patient currently on IV azithromycin. (12) Hypokalemia ICD Code: E87.6 Status: Acute Plan: Continue to replace orally and continue to monitor BMP. Potassium low at 3.1 today. (13) Diarrhea ICD Code: R19.7 Status: Acute Plan: Patient states had an episode of diarrhea today. I will hold Colace and senna. Check stool for C. difficile since patient is at risk. Placed on contact isolation until C. difficile is ruled out. Assessment and Plan GI prophylaxis: I will add PPI since patient with sepsis and status post intubation. DVT prophylaxis: Continue heparin subcutaneous. Discharge Planning Continue to monitor in the medical floor. Discharge pending ID clearance and improvement of BUN/creatinine. Problem Qualifiers (1) DKA (diabetic ketoacidoses): Qualified Code: E10.10 - Diabetic ketoacidosis without coma associated with type 1 diabetes mellitus (2) Leukocytosis: Qualified Code: D72.825 - Bandemia Theodore Lacey MD Aug 28, 2016 11:45
--- NOTE | 2016-08-28 12:01 | HHI.NPPN ---
Subjective History of Present Illness 51 year old with DKA,IDDM,NATIVIDAD Objective Data Data 08/27/16 08/28/16 19:00 07:00 Intake Total 1776 ml 690 ml Output Total 1250 ml 500 ml Balance 526 ml 190 ml Intake Oral 1000 ml 690 ml IV Total 776 ml Output Urine Total 1250 ml 500 ml # Voids 3 # Bowel Movements 2 Vital Signs Date Time Temp Pulse Resp B/P Pulse Ox O2 Delivery O2 Flow Rate FiO2 08/28/16 08:10 90 08/28/16 08:00 98.0 84 18 111/71 97 08/28/16 04:00 97.6 83 17 102/69 98 08/28/16 00:00 98.4 94 16 108/63 96 08/28/16 00:00 97.9 85 18 109/59 95 08/27/16 21:11 87 08/27/16 20:04 97 21 08/27/16 20:00 97.9 91 17 99/64 98 08/27/16 18:00 96 08/27/16 16:00 98.4 91 20 123/72 96 08/27/16 16:00 91 08/27/16 14:00 100 08/27/16 12:00 98.6 94 22 94/67 95 08/27/16 12:00 94 -: 08/28/16 0700 08/28/16 0700 Physical Exam General Appearance: Well Developed, Well Nourished Eyes Eye Exam: Pupils Equal Neck Neck Exam: Neck Supple Pulmonary Resp Exam: Clear Bilaterally, Breath Sounds Equal Cardiology CV Exam: Regular, Normal Sinus Rhythm Gastrointestinal/Abdomen GI Exam: Soft, Non-Tender, Bowel Sounds Present Extremeties Extremities Exam: No Edema Neurologic Neuro Exam: Alert Assessment/Plan Problem List: (1) Acute renal failure Plan: Patient appears to have hyperchloremia and the dehydration and contrast related injury on NS with KCL 20 meq K given once cr below 2 then OK to discharge slowly improving Cr 2.3 (2) DKA (diabetic ketoacidoses) Plan: resolved Problem Qualifiers (1) DKA (diabetic ketoacidoses): Qualified Code: E10.10 - Diabetic ketoacidosis without coma associated with type 1 diabetes mellitus Kwaku Justin MD Aug 28, 2016 12:01
[2016-08-28] MEDS: NS + KCL 40 MEQ INJ 1,000 ML IV SCH ×2 (12:16→23:36)
[2016-08-28] MEDS ORDERED: POTASSIUM CHLORIDE 20 MEQ PWD PACKET PO ONE (12:30)
[2016-08-28] MEDS: PANTOPRAZOLE SOD 40 MG DELAYED RELEASE TAB PO SCH (13:27)
[2016-08-28] MEDS ORDERED: oxyCODONE/ACETAMINOPHEN 5 MG/325 MG TAB PO ONE (14:30)
[2016-08-28 17:44] LABS: C. DIFF EPI 027 PRESUMPTIVE NEGATIVE (NEGATIVE); C. DIFF TOXIN PCR NEGATIVE (NEGATIVE)
[2016-08-28] MEDS: INSULIN DETEMIR 100 UNITS/ML VIAL SQ SCH (21:00)
[2016-08-28] MEDS: AZITHROMYCIN INJ 500 MG in SODIUM CHLOR 0.9% 250 ML INJ 250 ML IV SCH (21:18)
--- NOTE | 2016-08-28 22:57 | HHI.IDPN ---
Subjective Subjective Remarks doing well no fever no co Antibiotics azithromycin Allergies: Coded Allergies: No Known Allergies (Unverified , 08/24/16) Objective . Vital Signs Date Time Temp Pulse Resp B/P Pulse Ox O2 Delivery O2 Flow Rate FiO2 08/28/16 20:00 97.7 94 20 115/68 97 08/28/16 16:00 98.2 86 18 116/76 99 08/28/16 12:00 99.1 96 18 117/78 98 08/28/16 08:10 90 08/28/16 08:00 98.0 84 18 111/71 97 08/28/16 04:00 97.6 83 17 102/69 98 08/28/16 00:00 98.4 94 16 108/63 96 08/28/16 00:00 97.9 85 18 109/59 95 08/27/16 08/27/16 08/28/16 15:00 23:00 07:00 Intake Total 1776 ml 450 ml 240 ml Output Total 800 ml 450 ml 500 ml Balance 976 ml 0 ml -260 ml Intake Oral 1000 ml 450 ml 240 ml IV Total 776 ml Output Urine Total 800 ml 450 ml 500 ml # Voids 3 # Bowel Movements 2 . Laboratory Tests Test 08/28/16 07:00 White Blood Count 4.4 TH/MM3 Red Blood Count 3.80 MIL/MM3 Hemoglobin 11.8 GM/DL Hematocrit 35.0 % Mean Corpuscular Volume 92.0 FL Mean Corpuscular Hemoglobin 31.2 PG Mean Corpuscular Hemoglobin 33.9 % Concent Red Cell Distribution Width 14.1 % Platelet Count 99 TH/MM3 Mean Platelet Volume 8.3 FL Neutrophils (%) (Auto) 59.6 % Lymphocytes (%) (Auto) 29.8 % Monocytes (%) (Auto) 8.5 % Eosinophils (%) (Auto) 1.5 % Basophils (%) (Auto) 0.6 % Neutrophils # (Auto) 2.6 TH/MM3 Lymphocytes # (Auto) 1.3 TH/MM3 Monocytes # (Auto) 0.4 TH/MM3 Eosinophils # (Auto) 0.1 TH/MM3 Basophils # (Auto) 0.0 TH/MM3 CBC Comment AUTO DIFF Differential Total Cells 100 Counted Neutrophils % (Manual) 36 % Band Neutrophils % 20 % Lymphocytes % 36 % Monocytes % 5 % Basophils % 1 % Neutrophils # (Manual) 2.6 TH/MM3 Metamyelocytes 2 % Differential Comment FINAL DIFF MANUAL Platelet Estimate LOW Platelet Morphology Comment NORMAL Laboratory Tests Test 08/26/16 08/27/16 08/27/16 08/28/16 23:12 09:20 15:53 07:00 Potassium Level 2.6 MEQ/L 3.5 MEQ/L 3.4 MEQ/L 3.1 MEQ/L Phosphorus Level 3.2 MG/DL 2.9 MG/DL 2.9 MG/DL Sodium Level 143 MEQ/L 141 MEQ/L 145 MEQ/L Chloride Level 104 MEQ/L 104 MEQ/L 109 MEQ/L Carbon Dioxide Level 29.4 MEQ/L 24.9 MEQ/L 29.7 MEQ/L Anion Gap 10 MEQ/L 12 MEQ/L 6 MEQ/L Blood Urea Nitrogen 29 MG/DL 30 MG/DL 27 MG/DL Creatinine 2.59 MG/DL 2.57 MG/DL 2.39 MG/DL Estimat Glomerular Filtration 19 ML/MIN 20 ML/MIN 21 ML/MIN Rate Random Glucose 217 MG/DL 353 MG/DL 184 MG/DL Calcium Level 7.5 MG/DL 7.5 MG/DL 7.8 MG/DL Magnesium Level 1.7 MG/DL 1.9 MG/DL Lipase 205 U/L Microbiology Date/Time Procedure Status Source Growth 08/25/16 23:45 Influenza Types A,B Antigen (CAILIN) - Final Complete Nasal Washing NEGATIVE FOR FLU A AND B ANTIGEN.... Imaging Last Impressions Chest X-Ray 08/25/16 0000 Signed Impressions: Service Date/Time: Thursday, August 25, 2016 10:14 - CONCLUSION: 1. The endotracheal tube and NG tube are in good position. 2. The lungs are clear. Dipak Rodriguez MD Head CT 08/24/16 0000 Signed Impressions: Service Date/Time: Wednesday, August 24, 2016 20:35 - CONCLUSION: Unremarkable study. Jesus Ferreira MD Abdomen/Pelvis CT 08/24/16 Signed Impressions: Service Date/Time: Wednesday, August 24, 2016 20:45 - CONCLUSION: There is moderate amount of stool throughout the colon and limited examination due to motion artifact. Possible focal areas of consolidation left lung base versus artifact. Jesus Ferreira MD Physical Exam CONSTITUTIONAL/GENERAL: This is an adequately nourished patient, in no apparent distress. TUBES/LINES/DRAINS: SKIN: No jaundice, rashes, or lesions. Skin temperature appropriate. Not diaphoretic. EYES: Pupils equal and round and reactive. Extraocular motions intact. No scleral icterus. No injection or drainage. Fundi not examined. CARDIOVASCULAR: Regular rate and rhythm without murmurs, gallops, or rubs. No JVD. Peripheral pulses symmetric. RESPIRATORY/CHEST: Symmetric, unlabored respirations. Clear to auscultation. Breath sounds equal bilaterally. No wheezes, rales, or rhonchi. GASTROINTESTINAL: Abdomen soft, non-tender, nondistended. No hepato-splenomegaly , or palpable masses. No guarding. Bowel sounds present. MUSCULOSKELETAL: Extremities without clubbing, cyanosis, or edema. NEUROLOGICAL: fully awake alert non focal following commands PSYCHIATRIC: calm and cooperative Assessment & Plan Remarks DKA - resolved - poorly controlled DM with Hb A1C over 11 few mos ago Acute VDRF mainly 2/2 profoung metabiloic acidosis: resolved Non anion gap hyperchloremic acidosis currently Low grade fever, luekocytosis: resolved - all clx negative L lung consolidation Fever in returning selene - dw pt: no smx of febrile illness while in [place] ([facility]) and after return about 2 wks ago - she only briefly had fever after admission and it resolved H/o malaria sp tx 2 yrs ago MS change - likely metabolic; doubt [employer] infection since MS rapidly improved with DKA correction ARF, Bandemia - persistent Worsening thrombocytopenia PLAN: fu WBC fu BC untill final dc azithromycin dw pt, her sisters Valencia Moeller MD Aug 28, 2016 22:57
[2016-08-28] MEDS: ACETAMINOPHEN 500 MG CPLT PO PRN (23:27)
[2016-08-29] VITALS: BP 117/80; PULSE 88; RESP 20; TEMP 97.9; O2SAT 96
[2016-08-29 04:00] VITALS: BP 121/80; PULSE 89; RESP 20; TEMP 98; O2SAT 96
[2016-08-29] MEDS: CHLORHEXIDINE GLUCONATE 2 % 1 PACK (2 CLOTHS) TOP SCH (04:00)
[2016-08-29] MEDS: INSULIN NovoLIN REGULAR SUPPLEMENTAL SCALE SQ SCH (04:00)
[2016-08-29] MEDS: FREE WATER G-TUBE SCH ×3 (04:59→20:49)
[2016-08-29] MEDS: ACETAMINOPHEN 500 MG CPLT PO PRN ×4 (05:03→23:12)
[2016-08-29 08:00] VITALS: BP 120/70; PULSE 81; PULSE 85; PULSE 86; RESP 20; TEMP 98.7; O2SAT 97
[2016-08-29 08:11] LABS: BASOPHIL % 0.6 % (0.0-2.0); EOSINOPHIL # 0.1 TH/MM3 (0-0.4); EOSINOPHIL % 1.5 % (0.0-4.0); HEMATOCRIT 32.5 % (35.0-46.0); HEMO FLAGS DIFF FINAL; LYMPH % 34.5 % (9.0-44.0); LYMPHOCYTE # 1.3 TH/MM3 (1.0-4.8); MEAN CELL VOLUME 92.5 FL (80.0-100.0); MEAN CORPUSCULAR HEMOGLOBIN 31.8 PG (27.0-34.0); MEAN CORPUSCULAR HGB CONC 34.3 % (32.0-36.0); MONO % 8.6 % (0.0-8.0); NEUT % 54.8 % (16.0-70.0); PLATELET COUNT 111 TH/MM3 (150-450); RED BLOOD COUNT 3.52 MIL/MM3 (4.00-5.30); WHITE BLOOD COUNT 3.6 TH/MM3 (4.0-11.0)
[2016-08-29] MEDS: PANTOPRAZOLE SODIUM 40 MG VIAL IV PUSH SCH (08:26)
[2016-08-29] MEDS: HEPARIN SODIUM - SQ 10,000 UNITS/ML VIAL SQ SCH ×2 (08:28→20:50)
[2016-08-29] MEDS: PANTOPRAZOLE SOD 40 MG DELAYED RELEASE TAB PO SCH (08:28)
[2016-08-29 08:35] LABS: ALT (GPT) 19 U/L (10-53); ANION GAP 8 MEQ/L (5-15); AST (GOT) 11 U/L (15-37); BICARBONATE 26.3 MEQ/L (21.0-32.0); BLOOD UREA NITROGEN 28 MG/DL (7-18); CHLORIDE 111 MEQ/L (98-107); GLOMERULAR FILTRATION RATE 25 ML/MIN (>89); POTASSIUM 3.8 MEQ/L (3.5-5.1); SODIUM (NA) 145 MEQ/L (136-145)
[2016-08-29 08:37] LABS: ALKALINE PHOSPHATASE 75 U/L (45-117); TOTAL BILIRUBIN ADULT 0.3 MG/DL (0.2-1.0)
[2016-08-29] MEDS: INSULIN ASPART 1,000 UNITS/10 ML VIAL SQ SCH ×3 (11:12→17:13)
[2016-08-29] MEDS: INSULIN ASPART SUPPLEMENTAL SCALE SQ SCH ×3 (11:13→20:49)
[2016-08-29] MEDS: NS + KCL 40 MEQ INJ 1,000 ML IV SCH (11:37)
[2016-08-29 12:00] VITALS: BP 130/78; PULSE 86; RESP 20; TEMP 99.2; O2SAT 97
--- NOTE | 2016-08-29 15:21 | HHI.NPPN ---
Subjective History of Present Illness 51 year old with DKA,IDDM,[place]IVIDAD Additional Remarks No acute complaints Objective Data Data 08/28/16 08/29/16 19:00 07:00 Intake Total 720 ml 3048 ml Output Total 600 ml 640 ml Balance 120 ml 2408 ml Intake Oral 720 ml 320 ml IV Total 2728 ml Output Urine Total 600 ml 640 ml # Voids 2 # Bowel Movements 1 Vital Signs Date Time Temp Pulse Resp B/P Pulse Ox O2 Delivery O2 Flow Rate FiO2 08/29/16 12:00 99.2 86 20 130/78 97 08/29/16 08:00 98.7 86 20 120/70 97 08/29/16 08:00 85 08/29/16 04:00 98.0 89 20 121/80 96 08/29/16 00:00 97.9 88 20 117/80 96 08/28/16 20:04 89 08/28/16 20:00 97.7 94 20 115/68 97 08/28/16 16:00 98.2 86 18 116/76 99 -: 08/29/16 0658 08/29/16 0658 Physical Exam General Appearance: Well Developed, Well Nourished Eyes Eye Exam: Pupils Equal Neck Neck Exam: Neck Supple Pulmonary Resp Exam: Clear Bilaterally, Breath Sounds Equal Cardiology CV Exam: Regular, Normal Sinus Rhythm Gastrointestinal/Abdomen GI Exam: Soft, Non-Tender, Bowel Sounds Present Extremeties Extremities Exam: No Edema Neurologic Neuro Exam: Alert Assessment/Plan Problem List: (1) Acute renal failure Plan: Patient appears to have hyperchloremia and the dehydration and contrast related injury on NS with KCL 20 meq @ 50cc/hour Creatinine continues to improve with good UOP Electrolytes stable. Renal function continues to improve. Can continue IVFs for now. Otherwise ok for D/C from renal standpoint. (2) DKA (diabetic ketoacidoses) Plan: resolved Problem Qualifiers (1) DKA (diabetic ketoacidoses): Qualified Code: E10.10 - Diabetic ketoacidosis without coma associated with type 1 diabetes mellitus Dipak Selby MD Aug 29, 2016 15:21
[2016-08-29 16:00] VITALS: BP 123/71; PULSE 92; RESP 20; TEMP 99.4; O2SAT 95
--- NOTE | 2016-08-29 17:28 | HHI.PR ---
Subjective Remarks good urine output denies fevers/chills c/o edematous hands creatinine slowly improving Objective Vitals Vital Signs Date Time Temp Pulse Resp B/P Pulse Ox O2 Delivery O2 Flow Rate FiO2 08/29/16 12:00 99.2 86 20 130/78 97 08/29/16 08:00 98.7 86 20 120/70 97 08/29/16 08:00 85 08/29/16 04:00 98.0 89 20 121/80 96 08/29/16 00:00 97.9 88 20 117/80 96 08/28/16 20:04 89 08/28/16 20:00 97.7 94 20 115/68 97 I/O 08/28/16 08/28/16 08/28/16 08/29/16 08/29/16 08/29/16 07:00 15:00 23:00 07:00 15:00 23:00 Intake Total 240 ml 720 ml 2266 ml 782 ml 753 ml Output Total 500 ml 600 ml 640 ml Balance -260 ml 120 ml 2266 ml 142 ml 753 ml Intake Oral 240 ml 720 ml 320 ml IV Total 1946 ml 782 ml 753 ml Output Urine Total 500 ml 600 ml 640 ml # Voids 2 # Bowel Movements 1 Result Diagram: 08/29/16 0658 08/29/16 0658 Imaging Last Impressions Chest X-Ray 08/25/16 0000 Signed Impressions: Service Date/Time: Thursday, August 25, 2016 10:14 - CONCLUSION: 1. The endotracheal tube and NG tube are in good position. 2. The lungs are clear. Dipak Rodriguez MD Head CT 08/24/16 0000 Signed Impressions: Service Date/Time: Wednesday, August 24, 2016 20:35 - CONCLUSION: Unremarkable study. Jesus Ferreira MD Abdomen/Pelvis CT 08/24/16 0000 Signed Impressions: Service Date/Time: Wednesday, August 24, 2016 20:45 - CONCLUSION: There is moderate amount of stool throughout the colon and limited examination due to motion artifact. Possible focal areas of consolidation left lung base versus artifact. Jesus Ferreira MD Objective Remarks GENERAL: AAOx3, NAD SKIN: Warm and dry. HEAD: Atraumatic. Normocephalic. EYES: Pupils equal and round. No scleral icterus. No injection or drainage. ENT: No nasal bleeding or discharge. Mucous membranes pink and moist. NECK: Trachea midline. No JVD. CARDIOVASCULAR: Regular rate and rhythm. RESPIRATORY: No accessory muscle use. Clear to auscultation. Breath sounds equal bilaterally. GASTROINTESTINAL: Abdomen soft, non-tender, nondistended. Hepatic and splenic margins not palpable. MUSCULOSKELETAL: Extremities without clubbing, cyanosis, or edema. No obvious deformities. NEUROLOGICAL: Awake and alert. No obvious cranial nerve deficits. Motor grossly within normal limits. Five out of 5 muscle strength in the arms and legs. Normal speech. PSYCHIATRIC: Appropriate mood and affect; insight and judgment normal. Procedures None Medications and IVs Current Medications Medications (Trade) Dose Ordered Sig/Billie Route Start Time Stop Time Status Last Admin Miscellaneous Information 1 Q361D XX 08/24/16 22:00 08/24/16 22:00 (Chlorhexidine 2% Cloth) 3 pack Taper DAILY@04 TOP 08/25/16 04:00 08/21/17 03:59 08/27/16 04:00 Chlorhexidine Gluconate 3 pack 3 pack UNSCH PRN TOP 08/24/16 22:00 (Versed Inj) 100 ml @ 0 mls/hr TITRATE IV 08/25/16 02:30 (Senna Liq) 8.8 mg DAILY PO 08/25/16 10:00 Hold 08/28/16 09:37 (Colace Liq) 100 mg Q12HR PO 08/25/16 10:00 Hold 08/28/16 09:37 (Protonix Inj) 40 mg DAILY IV PUSH 08/25/16 10:00 08/28/16 09:39 Heparin Sodium (Porcine) 5000 units 5,000 units Q12HR SQ 08/25/16 21:00 08/29/16 08:28 (fentaNYL DRIP) 250 ml @ 0 mls/hr TITRATE IV 08/25/16 11:45 08/26/16 08:11 (Free Water) 250 ml Q8HR G-TUBE 08/25/16 15:00 08/27/16 05:34 (D50w (Vial) Inj) 25 ml UNSCH PRN IV PUSH 08/25/16 15:00 Glucagon 1 mg 1 mg UNSCH PRN OTHER 08/25/16 15:00 (NS + KCl 40 Meq Inj) 1,000 ml @ 52 mls/hr [id number] IV 08/28/16 11:45 08/29/16 11:37 (Protonix) 40 mg DAILY PO 08/28/16 13:00 08/29/16 08:28 (Tylenol) 500 mg Q6H PRN PO 08/28/16 23:15 08/29/16 11:12 (NovoLOG INJ) 3 units TIDPC SQ 08/29/16 09:30 08/29/16 11:12 (Levemir Inj) 10 units BID SQ 08/29/16 21:00 Urinary Catheter: No Vascular Central Line Catheter: No A/P Problem List: (1) Acute hypoxemic respiratory failure ICD Code: J96.01 Status: Resolved (2) Acute renal failure ICD Code: N17.9 Status: Acute (3) Encephalopathy acute ICD Code: G93.40 Status: Resolved (4) DKA (diabetic ketoacidoses) ICD Code: E13.10 Status: Resolved (5) Leukocytosis ICD Code: D72.829 Status: Resolved (6) High anion gap metabolic acidosis ICD Code: E87.2 Status: Resolved (7) Pancreatitis ICD Code: K85.90 Status: Resolved (8) Hypertriglyceridemia ICD Code: E78.1 Status: Acute (9) Hypernatremia ICD Code: E87.0 Status: Resolved (10) Recent travel to [facility] ICD Code: Z78.9 Status: Acute (11) Sepsis ICD Code: A41.9 Status: Acute (12) Hypokalemia ICD Code: E87.6 Status: Acute (13) Diarrhea ICD Code: R19.7 Status: Acute (14) Thrombocytopenia ICD Code: D69.6 Status: Acute Plan: Thrombocytopenia likely reactive to acute infection and stress. Platelet initially trending down to 99k , now trending up. Platelets 111. (15) Leukopenia ICD Code: D72.819 Status: Acute Plan: Unclear etiology, possibly secondary to stress and acute infection. Monitor CBC. Assessment and Plan (1) Acute hypoxemic respiratory failure Plan: Was admitted to the intensive care unit initially under the care of the forming machine upkeep mechanic helper. The patient was intubated and mechanically ventilated. The patient status post extubation. Mr. failure has resolved. The patient is currently satting well on room air. (2) Acute renal failure Plan: The patient initially on IV fluids with bicarbonate drip and one fourth normal saline in intensive care unit. Sodium dropped from 150-143. CKs normal. Patient was started on normal saline with 20 mEq of KCl at 75 mL as per our for gentle hydration. I will increase the quantity of potassium in the fluids to 40 mEq. Nephrology consulted and following. Creatinine trending down. Continue to monitor BUN/creatinine, avoid nephrotoxins. Monitor strict I's and O's. Patient has excellent urine output. 08/29 I will decrease th rate of fluids to 50 ml/hr and switch to LR due to hyperchloremia. (3) Encephalopathy acute Plan: Likely metabolic encephalopathy from hypernatremia and DKA. Now resolved. (4) DKA (diabetic ketoacidoses) Plan: Resolved after treatment with IV insulin drip. The patient is currently on insulin Levemir 5 units subcutaneous at at bedtime and SSI with insulin NovoLog. Continue with same routine since blood sugars are much improved. Check hemoglobin A1c. (5) Leukocytosis Plan: Likely reactive secondary to sepsis and stress. WBC now low at 3.2. No further band forms reported. Continue to monitor cbc. (6) High anion gap metabolic acidosis Plan: Now resolved after treatment of DKA. (7) Pancreatitis Plan: Patient initially presented with lipase of 8874, now down to normal. The patient tolerating diet. (8) Hypertriglyceridemia Plan: Patient has elevated cholesterol with elevated triglycerides, total cholesterol 203, triglycerides of 514, HDL course of 35.2. (9) Hypernatremia Plan: Now resolved after treatment with half-normal saline. Half-normal saline has been discontinued and sodium slightly went up from 143-145. We'll continue normal saline, however if sodium continues to increase 10 we'll switch to half normal saline. (10) Recent travel to [place] Plan: ID following. Respiratory isolation has been discontinued as per ID recommendations. Infectious disease discussed with patient. She had no symptoms of febrile illness while in [place] ([facility], [facility]) and after return about 2 wks ago. (11) Sepsis Plan: Sepsis secondary to pneumonia. Left lower lobe infiltrate on chest x- ray upon admission. Present on admission, patient with leukocytosis, bandemia, heart rate over 90 and respiratory failure. Seems to be improving. Bandemia suppressant of 20%, however leukocytosis down to normal. Had some low-grade temps while hospitalized, however no fevers since 08/26/16. ID following. Azithromycin discontinued 08/28 as per ID. Blood cultures negative 5. Sputum culture no growth. (12) Hypokalemia Plan: Continue to replace orally and continue to monitor BMP. Potassium low at 3.1 today. (13) Diarrhea Plan: Patient states had an episode of diarrhea today. Senna and Colace held. C diff negative. Likely induced by medications.Resolved. GI prophylaxis: PPI DVT prophylaxis: Continue heparin subcutaneous. Pt eval Discharge Planning Continue to monitor in the medical floor. Discharge pending nephrology clearance. Possible discharge in a.m. Problem Qualifiers (1) DKA (diabetic ketoacidoses): Qualified Code: E10.10 - Diabetic ketoacidosis without coma associated with type 1 diabetes mellitus (2) Leukocytosis: Qualified Code: D72.825 - Bandemia Theodore Lacey MD Aug 29, 2016 17:28
[2016-08-29] MEDS ORDERED: POTASSIUM CHLORIDE INJ 20 MEQ in LACTATED RINGER'S 1000 ML INJ 1,000 ML IV SCH (18:00)
[2016-08-29 20:00] VITALS: BP 111/67; PULSE 94; RESP 18; TEMP 98.8; O2SAT 95
[2016-08-29] MEDS: INSULIN DETEMIR 100 UNITS/ML VIAL SQ SCH (20:48)
[2016-08-29] MEDS ORDERED: INSULIN DETEMIR 100 UNITS/ML VIAL SQ SCH (21:00)
[2016-08-30] VITALS: BP 128/82; PULSE 83; RESP 18; TEMP 98.3; O2SAT 96
[2016-08-30 04:00] VITALS: BP 134/80; PULSE 83; RESP 16; TEMP 97.6; O2SAT 96
[2016-08-30] MEDS: CHLORHEXIDINE GLUCONATE 2 % 1 PACK (2 CLOTHS) TOP SCH (04:00)
[2016-08-30] MEDS: ACETAMINOPHEN 500 MG CPLT PO PRN ×4 (05:17→23:09)
[2016-08-30] MEDS: FREE WATER G-TUBE SCH ×3 (05:21→22:00)
[2016-08-30] MEDS: INSULIN ASPART SUPPLEMENTAL SCALE SQ SCH ×4 (06:07→21:01)
[2016-08-30 08:00] VITALS: BP 133/88; PULSE 88; RESP 20; TEMP 98.8; O2SAT 94
[2016-08-30] MEDS: PANTOPRAZOLE SODIUM 40 MG VIAL IV PUSH SCH (08:14)
[2016-08-30] MEDS: INSULIN ASPART 1,000 UNITS/10 ML VIAL SQ SCH ×3 (08:14→18:25)
[2016-08-30] MEDS: HEPARIN SODIUM - SQ 10,000 UNITS/ML VIAL SQ SCH ×2 (08:14→21:00)
[2016-08-30] MEDS: INSULIN DETEMIR 100 UNITS/ML VIAL SQ SCH ×2 (08:14→21:00)
[2016-08-30] MEDS: PANTOPRAZOLE SOD 40 MG DELAYED RELEASE TAB PO SCH (08:15)
[2016-08-30 12:00] VITALS: BP 139/83; PULSE 94; RESP 20; TEMP 99.6; O2SAT 95
--- NOTE | 2016-08-30 12:01 | HHI.PR ---
Subjective Remarks Patient states she felt short of breath last night. Chest pain or short of breath at this moment. Complains of bilateral upper extremity swelling as well as lower extremity swelling. Denies fevers or chills A febrile Objective Vitals Vital Signs Date Time Temp Pulse Resp B/P Pulse Ox O2 Delivery O2 Flow Rate FiO2 08/30/16 08:00 98.8 88 20 133/88 94 08/30/16 04:00 97.6 83 16 134/80 96 08/30/16 00:00 98.3 83 18 128/82 96 08/29/16 20:00 98.8 94 18 111/67 95 08/29/16 16:00 99.4 92 20 123/71 95 I/O 08/29/16 08/29/16 08/29/16 08/30/16 08/30/16 08/30/16 07:00 15:00 23:00 07:00 15:00 23:00 Intake Total 782 ml 1353 ml 526 ml 578 ml Output Total 640 ml 600 ml 200 ml Balance 142 ml 1353 ml -74 ml 378 ml Intake Oral 600 ml 240 ml 240 ml IV Total 782 ml 753 ml 286 ml 338 ml Output Urine Total 640 ml 600 ml 200 ml # Voids 3 1 # Bowel Movements 1 1 1 Result Diagram: 08/29/16 0658 08/29/16 0658 Imaging Last Impressions Chest X-Ray 08/25/16 0000 Signed Impressions: Service Date/Time: Thursday, August 25, 2016 10:14 - CONCLUSION: 1. The endotracheal tube and NG tube are in good position. 2. The lungs are clear. Dipak Rodriguez MD Head CT 08/24/16 0000 Signed Impressions: Service Date/Time: Wednesday, August 24, 2016 20:35 - CONCLUSION: Unremarkable study. Jesus Ferreira MD Abdomen/Pelvis CT 08/24/16 0000 Signed Impressions: Service Date/Time: Wednesday, August 24, 2016 20:45 - CONCLUSION: There is moderate amount of stool throughout the colon and limited examination due to motion artifact. Possible focal areas of consolidation left lung base versus artifact. Jesus Ferreira MD Objective Remarks GENERAL: AAOx3, NAD SKIN: Warm and dry. HEAD: Atraumatic. Normocephalic. EYES: Pupils equal and round. No scleral icterus. No injection or drainage. ENT: No nasal bleeding or discharge. Mucous membranes pink and moist. NECK: Trachea midline. No JVD. CARDIOVASCULAR: Regular rate and rhythm. RESPIRATORY: No accessory muscle use. Clear to auscultation. Breath sounds equal bilaterally. GASTROINTESTINAL: Abdomen soft, non-tender, nondistended. Hepatic and splenic margins not palpable. MUSCULOSKELETAL: Extremities without clubbing, cyanosis. Bilateral upper extremities are edematous and forearm is very tense in both extremities. There is +2 pitting edema in bilateral extremities. NEUROLOGICAL: Awake and alert. No obvious cranial nerve deficits. Motor grossly within normal limits. Five out of 5 muscle strength in the arms and legs. Normal speech. PSYCHIATRIC: Appropriate mood and affect; insight and judgment normal. Procedures None Medications and IVs Current Medications Medications (Trade) Dose Ordered Sig/Billie Route Start Time Stop Time Status Last Admin Miscellaneous Information 1 Q361D XX 08/24/16 22:00 08/24/16 22:00 (Chlorhexidine 2% Cloth) Taper DAILY@04 TOP 08/25/16 04:00 08/21/17 03:59 08/27/16 04:00 Chlorhexidine Gluconate 3 pack 3 pack UNSCH PRN TOP 08/24/16 22:00 (Versed Inj) 100 ml @ 0 mls/hr TITRATE IV 08/25/16 02:30 (Senna Liq) 8.8 mg DAILY PO 08/25/16 10:00 Hold 08/28/16 09:37 (Colace Liq) 100 mg Q12HR PO 08/25/16 10:00 Hold 08/28/16 09:37 (Protonix Inj) 40 mg DAILY IV PUSH 08/25/16 10:00 08/30/16 08:14 Heparin Sodium (Porcine) 5000 units 5,000 units Q12HR SQ 08/25/16 21:00 08/30/16 08:14 (fentaNYL DRIP) 250 ml @ 0 mls/hr TITRATE IV 08/25/16 11:45 08/26/16 08:11 (Free Water) 250 ml Q8HR G-TUBE 08/25/16 15:00 08/27/16 05:34 (D50w (Vial) Inj) 25 ml UNSCH PRN IV PUSH 08/25/16 15:00 (Glucagon Inj) 1 mg UNSCH PRN OTHER 08/25/16 15:00 (Protonix) 40 mg DAILY PO 08/28/16 13:00 08/30/16 08:15 (Tylenol) 500 mg Q6H PRN PO 08/28/16 23:15 08/30/16 11:18 (NovoLOG INJ) 3 units TIDPC SQ 08/29/16 09:30 08/30/16 11:18 (Levemir Inj) 10 units BID SQ 08/29/16 21:00 08/30/16 08:14 Urinary Catheter: No Vascular Central Line Catheter: No A/P Problem List: (1) Acute hypoxemic respiratory failure ICD Code: J96.01 Status: Resolved (2) Acute renal failure ICD Code: N17.9 Status: Acute (3) Encephalopathy acute ICD Code: G93.40 Status: Resolved (4) DKA (diabetic ketoacidoses) ICD Code: E13.10 Status: Resolved (5) Leukocytosis ICD Code: D72.829 Status: Resolved (6) High anion gap metabolic acidosis ICD Code: E87.2 Status: Resolved (7) Pancreatitis ICD Code: K85.90 Status: Resolved (8) Hypertriglyceridemia ICD Code: E78.1 Status: Acute (9) Hypernatremia ICD Code: E87.0 Status: Resolved (10) Recent travel to [facility] [place] [place] ICD Code: Z78.9 Status: Acute (11) Sepsis ICD Code: A41.9 Status: Acute (12) Hypokalemia ICD Code: E87.6 Status: Acute (13) Diarrhea ICD Code: R19.7 Status: Acute (14) Thrombocytopenia ICD Code: D69.6 Status: Acute Plan: Thrombocytopenia likely reactive to acute infection and stress. Platelet initially trending down to 99k , now trending up. Platelets 111. (15) Leukopenia ICD Code: D72.819 Status: Acute Plan: Unclear etiology, possibly secondary to stress and acute infection. Monitor CBC. (16) Edema of both upper extremities ICD Code: R60.9 Status: Acute Plan: Likely secondary to IV fluid administration. Check upper venous dopplers to rule out DVT. (17) Bilateral edema of lower extremity ICD Code: R60.0 Status: Acute Plan: Likely secondary to IV fluid administration. We'll check venous Dopplers of lower extremities to rule out DVT. (18) SOB (shortness of breath) ICD Code: R06.02 Status: Acute Plan: Patient became shortness of breath on the night of 08/29/16. Possibly secondary to fluid overload. DC IV fluids. We'll give 20 mg IV Lasix once. check cxr. Assessment and Plan (1) Acute hypoxemic respiratory failure Plan: Was admitted to the intensive care unit initially under the care of the 2 year olds preschool teacher. The patient was intubated and mechanically ventilated. The patient status post extubation. Mr. failure has resolved. The patient is currently satting well on room air. (2) Acute renal failure Plan: The patient initially on IV fluids with bicarbonate drip and one fourth normal saline in intensive care unit. Sodium dropped from 150-143. CKs normal. Patient was started on normal saline with 20 mEq of KCl at 75 mL as per our for gentle hydration. I will increase the quantity of potassium in the fluids to 40 mEq. Nephrology consulted and following. Creatinine trending down. Continue to monitor BUN/creatinine, avoid nephrotoxins. Monitor strict I's and O's. Patient has excellent urine output. 08/29 I will decrease th rate of fluids to 50 ml/hr and switch to LR due to hyperchloremia. (3) Encephalopathy acute Plan: Likely metabolic encephalopathy from hypernatremia and DKA. Now resolved. (4) DKA (diabetic ketoacidoses) Plan: Resolved after treatment with IV insulin drip. The patient is currently on insulin Levemir 5 units subcutaneous at at bedtime and SSI with insulin NovoLog. Continue with same routine since blood sugars are much improved. Check hemoglobin A1c. (5) Leukocytosis Plan: Likely reactive secondary to sepsis and stress. WBC now low at 3.2. No further band forms reported. Continue to monitor cbc. (6) High anion gap metabolic acidosis Plan: Now resolved after treatment of DKA. (7) Pancreatitis Plan: Patient initially presented with lipase of 8874, now down to normal. The patient tolerating diet. (8) Hypertriglyceridemia Plan: Patient has elevated cholesterol with elevated triglycerides, total cholesterol 203, triglycerides of 514, HDL course of 35.2. (9) Hypernatremia Plan: Now resolved after treatment with half-normal saline. Half-normal saline has been discontinued and sodium slightly went up from 143-145. We'll continue normal saline, however if sodium continues to increase 10 we'll switch to half normal saline. (10) Recent travel to [place] Plan: ID following. Respiratory isolation has been discontinued as per ID recommendations. Infectious disease discussed with patient. She had no symptoms of febrile illness while in [place] ([facility], [facility]) and after return about 2 wks ago. (11) Sepsis Plan: Sepsis secondary to pneumonia. Left lower lobe infiltrate on chest x- ray upon admission. Present on admission, patient with leukocytosis, bandemia, heart rate over 90 and respiratory failure. Seems to be improving. Bandemia suppressant of 20%, however leukocytosis down to normal. Had some low-grade temps while hospitalized, however no fevers since 08/26/16. ID following. Azithromycin discontinued 08/28 as per ID. Blood cultures negative 5. Sputum culture no growth. (12) Hypokalemia Plan: Continue to replace orally and continue to monitor BMP. Potassium low at 3.1 today. (13) Diarrhea Plan: Patient states had an episode of diarrhea today. Senna and Colace held. C diff negative. Likely induced by medications.Resolved. GI prophylaxis: PPI DVT prophylaxis: Continue heparin subcutaneous. Pt eval Discharge Planning Continue to monitor in the medical floor. Discharge pending nephrology clearance. Possible discharge in a.m. Problem Qualifiers (1) DKA (diabetic ketoacidoses): Qualified Code: E10.10 - Diabetic ketoacidosis without coma associated with type 1 diabetes mellitus (2) Leukocytosis: Qualified Code: D72.825 - Bandemia Theodore Lacey MD Aug 30, 2016 12:01
[2016-08-30] MEDS ORDERED: FUROSEMIDE 20 MG/2 ML VIAL IV PUSH ONE (13:00)
[2016-08-30 13:45] LABS: HEMOGLOBIN A1a 1.8 %; HEMOGLOBIN A1b 0.8 %; HEMOGLOBIN Ao 77.2 %; HEMOGLOBIN F 1.8 %; HEMOGLOBIN LA1C 2.4 %; HEMOGLOBIN P3 4.7 %
--- NOTE | 2016-08-30 14:57 | HHI.NPPN ---
Subjective History of Present Illness 51 year old with DKA,IDDM,[place] Additional Remarks No acute complaints Objective Data Data 08/29/16 08/30/16 19:00 07:00 Intake Total 1353 ml 1104 ml Output Total 800 ml Balance 1353 ml 304 ml Intake Oral 600 ml 480 ml IV Total 753 ml 624 ml Output Urine Total 800 ml # Voids 3 1 # Bowel Movements 1 2 Vital Signs Date Time Temp Pulse Resp B/P Pulse Ox O2 Delivery O2 Flow Rate FiO2 08/30/16 08:00 98.8 88 20 133/88 94 08/30/16 04:00 97.6 83 16 134/80 96 08/30/16 00:00 98.3 83 18 128/82 96 08/29/16 20:00 98.8 94 18 111/67 95 08/29/16 16:00 99.4 92 20 123/71 95 -: 08/29/16 0658 08/29/16 0658 Physical Exam General Appearance: Well Developed, Well Nourished Eyes Eye Exam: Pupils Equal Neck Neck Exam: Neck Supple Pulmonary Resp Exam: Clear Bilaterally, Breath Sounds Equal Cardiology CV Exam: Regular, Normal Sinus Rhythm Gastrointestinal/Abdomen GI Exam: Soft, Non-Tender, Bowel Sounds Present Extremeties Extremities Exam: No Edema Neurologic Neuro Exam: Alert Assessment/Plan Problem List: (1) Acute renal failure Plan: Patient appears to have hyperchloremia and the dehydration and contrast related injury Off IVFs now No new labs today - creatinine 2.1 yesterday. Electrolytes stable. Renal function continues to improve. Otherwise ok for D/C from renal standpoint if creatinine stable in AM. (2) DKA (diabetic ketoacidoses) Plan: resolved Problem Qualifiers (1) DKA (diabetic ketoacidoses): Qualified Code: E10.10 - Diabetic ketoacidosis without coma associated with type 1 diabetes mellitus Dipak Selby MD Aug 30, 2016 14:56
--- NOTE | 2016-08-30 16:35 | RADRPT ---
EXAM DATE/TIME: 08/30/2016 15:54 [facility] COMPARISON: No previous studies available for comparison. INDICATIONS : Short of breath MEDICAL HISTORY : Diabetes mellitus type II. pancreatic insufficiency SURGICAL HISTORY : None. ENCOUNTER: Subsequent ACUITY: 1 week PAIN SCORE: 0/10 LOCATION: chest FINDINGS: PA and lateral views of the chest demonstrate basilar airspace disease and small effusions. No pneumo thorax. Heart size within normal limits. CONCLUSION: 1. Mild basilar airspace disease and small bilateral pleural effusions. Differential diagnosis includ es mild congestive heart failure. Mark Pepper MD on August 30, 2016 at 16:31 Board Certified Radiologist. This report was verified electronically.
[2016-08-30] MEDS: NYSTAT/DIPHENHY/LIDO MOUTHWASH (Adult) 120ML SWISH-SWAL SCH ×2 (18:32→20:58)
[2016-08-30 20:00] VITALS: BP 123/67; PULSE 93; RESP 18; TEMP 98.4; O2SAT 93
[2016-08-31] VITALS: BP 130/68; PULSE 85; RESP 18; TEMP 97.5; O2SAT 96
[2016-08-31 04:00] VITALS: BP 130/70; PULSE 90; RESP 18; TEMP 98; O2SAT 94
[2016-08-31] MEDS: CHLORHEXIDINE GLUCONATE 2 % 1 PACK (2 CLOTHS) TOP SCH (04:00)
[2016-08-31] MEDS: FREE WATER G-TUBE SCH ×2 (06:00→13:38)
[2016-08-31] MEDS: ACETAMINOPHEN 500 MG CPLT PO PRN ×2 (06:16→12:22)
[2016-08-31] MEDS: INSULIN ASPART SUPPLEMENTAL SCALE SQ SCH ×2 (06:18→12:28)
[2016-08-31] MEDS: NYSTAT/DIPHENHY/LIDO MOUTHWASH (Adult) 120ML SWISH-SWAL SCH ×2 (07:55→12:23)
[2016-08-31] MEDS: PANTOPRAZOLE SOD 40 MG DELAYED RELEASE TAB PO SCH (07:56)
[2016-08-31] MEDS: HEPARIN SODIUM - SQ 10,000 UNITS/ML VIAL SQ SCH (07:56)
[2016-08-31 08:00] VITALS: BP 144/85; PULSE 90; RESP 18; TEMP 98.8; O2SAT 92
[2016-08-31] MEDS: INSULIN ASPART 1,000 UNITS/10 ML VIAL SQ SCH ×2 (08:04→12:28)
[2016-08-31] MEDS: INSULIN DETEMIR 100 UNITS/ML VIAL SQ SCH (08:04)
[2016-08-31] MEDS: PANTOPRAZOLE SODIUM 40 MG VIAL IV PUSH SCH (08:04)
[2016-08-31 10:42] LABS: AUTOMATED NEUTROPHIL # 3.3 TH/MM3 (1.8-7.7); BASOPHIL % 0.6 % (0.0-2.0); EOSINOPHIL % 0.7 % (0.0-4.0); HEMATOCRIT 36.3 % (35.0-46.0); HEMO FLAGS DIFF FINAL; LYMPH % 27.3 % (9.0-44.0); LYMPHOCYTE # 1.5 TH/MM3 (1.0-4.8); MEAN CELL VOLUME 93.1 FL (80.0-100.0); MEAN CORPUSCULAR HEMOGLOBIN 31.4 PG (27.0-34.0); MEAN CORPUSCULAR HGB CONC 33.8 % (32.0-36.0); MONO % 9.9 % (0.0-8.0); NEUT % 61.5 % (16.0-70.0); PLATELET COUNT 227 TH/MM3 (150-450); RED CELL DISTRIBUTION WIDTH 13.5 % (11.6-17.2); WHITE BLOOD COUNT 5.3 TH/MM3 (4.0-11.0)
--- NOTE | 2016-08-31 10:43 | RADRPT ---
EXAM DATE/TIME: 08/31/2016 09:23 [facility] COMPARISON: No previous studies available for comparison. INDICATIONS : Bilateral lower extremity edema. MEDICAL HISTORY : Diabetes. Post malaria treatment. SURGICAL HISTORY : Unable to obtain. ENCOUNTER: Initial ACUITY: 1 day PAIN SCORE: 5/10 LOCATION: Bilateral legs. TECHNIQUE: Venous ultrasound of the left and right leg was performed from the inguinal ligament to the proximal calf. Real-time, color Doppler and spectral tracing, compression and augmentation techniques were us ed. FINDINGS: RIGHT LEG: There is normal compressibility of the deep venous system from the inguinal region to the proximal ca lf. No echogenic clot is seen in the lumen of the common femoral, femoral, popliteal, and posterior tibial veins. There is a normal response of the venous system to proximal and distal augmentation an d respiration. LEFT LEG: There is normal compressibility of the deep venous system from the inguinal region to the proximal ca lf. No echogenic clot is seen in the lumen of the common femoral, femoral, popliteal, and posterior tibial veins. There is a normal response of the venous system to proximal and distal augmentation an d respiration. CONCLUSION: Normal examination. Javier Rogers MD on August 31, 2016 at 10:41 Board Certified Radiologist. This report was verified electronically.
--- NOTE | 2016-08-31 10:44 | RADRPT ---
EXAM DATE/TIME: 08/31/2016 09:36 [facility] COMPARISON: No previous studies available for comparison. INDICATIONS : Bilateral upper extremity edema. MEDICAL HISTORY : Diabetes. Post malaria treatment. SURGICAL HISTORY : Unable to obtain. ENCOUNTER: Initial ACUITY: 1 day PAIN SCORE: 5/10 LOCATION: Bilateral arms. FINDINGS: RIGHT UPPER EXTREMITY: There is spontaneous flow documented in the brachial, basilic, or there is occlusive thrombus a nonoc clusive thrombus in the cephalic vein mid upper arm to the level of the wrist. axillary, and subclavi an veins. The vessels are compressible and augmentation response is documented. No filling defects are seen. The flow is phasic with respiration. Direction of flow in the jugular vein is caudal. LEFT UPPER EXTREMITY: There is spontaneous flow documented in the brachial, basilic, cephalic, axillary, and subclavian vei ns. The vessels are compressible and augmentation response is documented. No filling defects are se en. The flow is phasic with respiration. Direction of flow in the jugular vein is caudal. CONCLUSION: 1. Right cephalic vein occlusive and nonocclusive thrombus otherwise patent venous system. Javier Rogers MD on August 31, 2016 at 10:41 Board Certified Radiologist. This report was verified electronically.
[2016-08-31 11:06] LABS: ANION GAP 9 MEQ/L (5-15); AST (GOT) 14 U/L (15-37); BICARBONATE 26.2 MEQ/L (21.0-32.0); BLOOD UREA NITROGEN 25 MG/DL (7-18); CHLORIDE 108 MEQ/L (98-107); GLOMERULAR FILTRATION RATE 30 ML/MIN (>89); MAGNESIUM 1.8 MG/DL (1.5-2.5); POTASSIUM 3.8 MEQ/L (3.5-5.1); SODIUM (NA) 143 MEQ/L (136-145)
[2016-08-31 11:13] LABS: ALKALINE PHOSPHATASE 73 U/L (45-117); ALT (GPT) 18 U/L (10-53); TOTAL BILIRUBIN ADULT 0.3 MG/DL (0.2-1.0)
[2016-08-31 12:00] VITALS: BP 139/84; PULSE 95; RESP 18; TEMP 98; O2SAT 97
[2016-08-31] MEDS ORDERED: INSU1INJ5 SQ (13:31)
[2016-08-31] MEDS ORDERED: NOVOINJ3 SQ (13:31)
--- NOTE | 2016-08-31 13:33 | HHI.DCPOC ---
Discharge Care Plan Diagnosis: (1) Edema of both upper extremities (2) Bilateral edema of lower extremity (3) Sepsis (4) DKA (diabetic ketoacidoses) (5) Hypokalemia (6) Pancreatitis Goals to Promote Your Health * To prevent worsening of your condition and complications * To maintain your health at the optimal level Directions to Meet Your Goals Take your medications as prescribed Follow your dietary instruction Follow activity as directed Keep your appointments as scheduled Take your immunizations and boosters as scheduled If your symptoms worsen call your PCP, if no PCP go to Urgent Care Center or Emergency Room Smoking is Dangerous to Your Health. Avoid second hand smoke Call the 24-hour hour crisis hotline for domestic abuse at Theodore Lacey MD Aug 31, 2016 13:32
[2016-08-31] MEDS ORDERED: OMEG1CAP53 PO (13:35)
[2016-08-31 13:40] VITALS: O2SAT 96
--- NOTE | 2016-08-31 13:41 | HHI.DS ---
Discharge Summary Admission Date Aug 24, 2016 at 21:19 Discharge Date: Aug 31, 2016 Admitting Diagnosis DKA, Severe (1) Acute hypoxemic respiratory failure ICD Code: J96.01 Diagnosis: Principal (2) Acute renal failure ICD Code: N17.9 Diagnosis: Principal (3) Encephalopathy acute ICD Code: G93.40 Diagnosis: Principal (4) DKA (diabetic ketoacidoses) ICD Code: E13.10 Diagnosis: Principal (5) Leukocytosis ICD Code: D72.829 Diagnosis: Principal (6) High anion gap metabolic acidosis ICD Code: E87.2 Diagnosis: Principal (7) Pancreatitis ICD Code: K85.90 Diagnosis: Principal (8) Hypertriglyceridemia ICD Code: E78.1 Diagnosis: Principal (9) Hypernatremia ICD Code: E87.0 Diagnosis: Principal (10) Recent travel to [facility] ICD Code: Z78.9 Diagnosis: Principal (11) Sepsis ICD Code: A41.9 Diagnosis: Principal (12) Hypokalemia ICD Code: E87.6 Diagnosis: Principal (13) Diarrhea ICD Code: R19.7 Diagnosis: Principal (14) Thrombocytopenia ICD Code: D69.6 Diagnosis: Principal (15) Leukopenia ICD Code: D72.819 Diagnosis: Principal (16) Edema of both upper extremities ICD Code: R60.9 Diagnosis: Principal (17) Bilateral edema of lower extremity ICD Code: R60.0 Diagnosis: Principal (18) SOB (shortness of breath) ICD Code: R06.02 Diagnosis: Principal (19) Cephalic vein thrombosis ICD Code: I82.619 Diagnosis: Principal (20) Uncontrolled diabetes mellitus ICD Code: E11.65 Diagnosis: Principal (21) ATN (acute tubular necrosis) ICD Code: N17.0 Diagnosis: Principal (22) Hyperlipidemia ICD Code: E78.5 Diagnosis: Principal (23) Hypertriglyceridemia ICD Code: E78.1 Diagnosis: Principal Procedures None Brief History - From Admission Medical history of type 1 diabetes presents to emergency department complaining of nausea vomiting and abdominal pain also elevated blood glucose. Patient was tachypneic and appeared very drowsy and was intubated by ED physician for an airway protection. 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/BMP: 08/31/16 1021 08/31/16 1021 Significant Findings Laboratory Tests Test 08/29/16 08/31/16 06:58 10:21 White Blood Count 3.6 TH/MM3 (4.0-11.0) Red Blood Count 3.52 MIL/MM3 3.90 MIL/MM3 (4.00-5.30) (4.00-5.30) Hemoglobin 11.2 GM/DL (11.6-15.3) Hematocrit 32.5 % (35.0-46.0) Platelet Count 111 TH/MM3 (150-450) Monocytes (%) (Auto) 8.6 % (0.0-8.0) 9.9 % (0.0-8.0) Chloride Level 111 MEQ/L 108 MEQ/L (98-107) (98-107) Blood Urea Nitrogen 28 MG/DL (7-18) 25 MG/DL (7-18) Creatinine 2.11 MG/DL 1.77 MG/DL (0.50-1.00) (0.50-1.00) Estimat Glomerular Filtration 25 ML/MIN (>89) 30 ML/MIN (>89) Rate Random Glucose 207 MG/DL 241 MG/DL (74-106) (74-106) Calcium Level 8.2 MG/DL (8.5-10.1) Aspartate Amino Transf 11 U/L (15-37) 14 U/L (15-37) (AST/SGOT) Total Protein 4.9 GM/DL 5.5 GM/DL (6.4-8.2) (6.4-8.2) Albumin 2.0 GM/DL 2.4 GM/DL (3.4-5.0) (3.4-5.0) Hemoglobin A1c 11.4 % (4.3-6.0) Imaging Last Impressions Upper Extremity Ultrasound 08/31/16 0000 Signed Impressions: Service Date/Time: Wednesday, August 31, 2016 09:36 - CONCLUSION: 1. Right cephalic vein occlusive and nonocclusive thrombus otherwise patent venous system. Javier Rogers MD Lower Extremity Ultrasound 08/31/16 0000 Signed Impressions: Service Date/Time: Wednesday, August 31, 2016 09:23 - CONCLUSION: Normal examination. Javier Rogers MD Chest X-Ray 08/30/16 0000 Signed Impressions: Service Date/Time: Tuesday, August 30, 2016 15:54 - CONCLUSION: 1. Mild basilar airspace disease and small bilateral pleural effusions. Differential diagnosis includes mild congestive heart failure. Mark Pepper MD Head CT 08/24/16 0000 Signed Impressions: Service Date/Time: Wednesday, August 24, 2016 20:35 - CONCLUSION: Unremarkable study. Jesus Ferreira MD Abdomen/Pelvis CT 08/24/16 0000 Signed Impressions: Service Date/Time: Wednesday, August 24, 2016 20:45 - CONCLUSION: There is moderate amount of stool throughout the colon and limited examination due to motion artifact. Possible focal areas of consolidation left lung base versus artifact. Jesus Ferreira MD PE at Discharge GENERAL: AAOx3, NAD SKIN: Warm and dry. HEAD: Atraumatic. Normocephalic. EYES: Pupils equal and round. No scleral icterus. No injection or drainage. ENT: No nasal bleeding or discharge. Mucous membranes pink and moist. NECK: Trachea midline. No JVD. CARDIOVASCULAR: Regular rate and rhythm. RESPIRATORY: No accessory muscle use. Clear to auscultation. Breath sounds equal bilaterally. GASTROINTESTINAL: Abdomen soft, non-tender, nondistended. Hepatic and splenic margins not palpable. MUSCULOSKELETAL: Extremities without clubbing, cyanosis. Bilateral upper extremities are edematous and forearm is very tense in both extremities. There is +2 pitting edema in bilateral extremities. NEUROLOGICAL: Awake and alert. No obvious cranial nerve deficits. Motor grossly within normal limits. Five out of 5 muscle strength in the arms and legs. Normal speech. PSYCHIATRIC: Appropriate mood and affect; insight and judgment normal. Pt update on day of discharge Patient denies chest pain or shortness of breath. Denies fevers or chills. Sick complains of upper extremity and lower extremity edema although slightly better than previous days. Doppler ultrasound of the lower extremity is negative for DVT, upper extremity ultrasound showed cephalic vein thrombosis. Explained to the patient that this is a superficial thrombophlebitis and likely does not require antibiotic coagulation since it rarely causes pulmonary emboli. Advised extremity elevation and warm/cold compresses if pain. We'll discharge the patient on Lovaza and statin to treat the patient's hyperlipidemia. Hospital Course (1) Acute hypoxemic respiratory failure Was admitted to the intensive care unit initially under the care of the tool trouble shooter. The patient was intubated and mechanically ventilated. The patient was extubated. Respiratory failure resolved. supplemental o2, bronchodilators were administered. (2) Acute renal failure The patient initially on IV fluids with bicarbonate drip and one fourth normal saline in intensive care unit. Sodium dropped from 150-143. CKs normal. Patient was started on normal saline with 20 mEq of KCl at 75 mL as per our for gentle hydration. I will increase the quantity of potassium in the fluids to 40 mEq. Nephrology consulted and following. Creatinine trending down. Continue to monitor BUN/creatinine, avoid nephrotoxins. Monitor strict I's and O's. Patient has excellent urine output. 08/29 Patient developed hyperchloremic metabolic acidosis - Normal saline switched to Lactated Ringers. (3) Encephalopathy acute Likely metabolic encephalopathy from hypernatremia and DKA. Now resolved. (4) DKA (diabetic ketoacidoses) Resolved after treatment with IV insulin drip. The patient is currently on insulin Levemir 5 units subcutaneous at at bedtime and SSI with insulin NovoLog. Continue with same routine since blood sugars are much improved. Check hemoglobin A1c. (5) Leukocytosis Likely reactive secondary to sepsis and stress. WBC now low at 3.2. No further band forms reported. Continue to monitor cbc. (6) High anion gap metabolic acidosis Resolved after treatment of DKA. (7) Pancreatitis Patient initially presented with lipase of 8874, now down to normal. Treated initially with nothing by mouth diet and IV fluids. Diet was advanced gradually as patient tolerated. Lipase trended down to normal. (8) Hypertriglyceridemia Patient has elevated cholesterol with elevated triglycerides, total cholesterol 203, triglycerides of 514, HDL course of 35.2. Discharged on a statin. (9) Hypernatremia Resolved after treatment with half-normal saline. Treated with hypo-tonic saline. (10) Recent travel to [place] ID consulted. Respiratory isolation has been discontinued as per ID recommendations. Infectious disease discussed with patient. She had no symptoms of febrile illness while in [place] ([facility], [facility]) and after return about 2 wks ago. (11) Sepsis Sepsis secondary to pneumonia. Left lower lobe infiltrate on chest x-ray upon admission. Present on admission, patient with leukocytosis, bandemia, heart rate over 90 and respiratory failure. Seems to be improving. Bandemia suppressant of 20%, however leukocytosis down to normal. Had some low-grade temps while hospitalized, however no fevers since 08/26/16. ID consulted. Azithromycin discontinued 08/28 as per ID. Blood cultures negative 5. Sputum culture no growth. (12) Hypokalemia Continue to replace orally and continue to monitor BMP. Potassium low at 3.1 today. (13) Diarrhea Patient states had an episode of diarrhea today. Senna and Colace held. C diff negative. Likely induced by medications.Resolved. (14) Thrombocytopenia Thrombocytopenia likely reactive to acute infection and stress. Platelet initially trending down to 99k , then trended up. Normal at 220 7K on discharge. (15) Leukopenia Unclear etiology, possibly secondary to stress and acute infection. Monitor CBC. (16) Edema of both upper extremities Venous Doppler of upper extremities showed right cephalic vein occlusive nonocclusive thrombus. This is a superficial thrombophlebitis, advised the patient to maintain extremity elevation and to treat with warm and cold compresses. (17) Bilateral edema of lower extremity Plan: Likely secondary to IV fluid administration. Venous Dopplers negative for DVT. (18) SOB (shortness of breath) Patient became shortness of breath on the night of 08/29/16. Possibly secondary to fluid overload. DC IV fluids. We'll give 20 mg IV Lasix once. Chest x-ray were checked on 08/30/16 showed mild basilar space disease and small bilateral pleural effusions. Likely mild congestive heart failure unknown if systolic or diastolic. Patient was started and discharged on Lasix 20 mg by mouth daily. GI prophylaxis: PPI DVT prophylaxis: Continue heparin subcutaneous. Pt Condition on Discharge: Stable Discharge Disposition: Discharge Home Discharge Time: > 30 minutes Discharge Instructions DIET: Follow Instructions for: Diabetic Diet, Low Fat Diet Activities you can perform: Regular-No Restrictions Activities to Avoid: Prolonged Standing, Strenuous Activity Follow up Referrals: Endocrinology - 1 Week Nephrology - 1 Week PCP Follow-up - 1 Week New Medications: Furosemide (Furosemide) 20 Mg Tab 20 MG PO DAILY edema #4 Ref 0 TAB Insulin Aspart Inj (Novolog Flexpen Inj) 300 Unit/3 Ml Pen 2-12 UNITS SQ ACHS SLIDING SCALE Max dose at bedtime (10 ) units; sugars less than 70,(0) units; sugars 150-199,(2) units; sugars 200-249,(4) units; sugars 250-299,(7) units; sugars 300-349,(10) units; sugars greater than 349,(12)units Blood Sugar Management #1 Ref 0 PEN Insulin Detemir Inj (Levemir Flextouch Pen Inj) 300 unit/3 ML Pen 15 UNITS SQ BID Blood Sugar Management #3 Ref 0 PEN Ipanz-3-Lnut Ethyl Esters (Lovaza) 1 Gm Cap 4 GM PO DAILY Manage Triglycerides #120 Ref 0 CAP Pravastatin (Pravastatin) 20 Mg Tab 20 MG PO DAILY Cholesterol Management #30 Ref 0 TAB Theodore Lacey MD Aug 31, 2016 13:41
[2016-08-31] MEDS ORDERED: PRAV20TA2 PO (13:56)
[2016-08-31] MEDS ORDERED: FURO20TA PO (14:13)
== END 2016-08-31 15:15 | disposition home or self-care (01) | DRG 871 ==
LOC: NEPE 17:55 → NEDA 21:19 → HIME 08-25 02:30 → N04B 08-27 19:26
PROVIDERS: ADMIT Hospitalist; ATTEND Hospitalist
PROC: 5A1945Z Respiratory Ventilation, 24-96 Consecutive Hours (ICD-10-PCS; principal; 2016-08-24)
PROC: 0BH17EZ Insertion of Endotracheal Airway into Trachea, Via Natural or Artificial Opening (ICD-10-PCS; 2016-08-24)
DX: A41.9 Sepsis, unspecified organism (principal); E10.10 Type 1 diabetes mellitus with ketoacidosis without coma; J96.01 Acute respiratory failure with hypoxia; N17.0 Acute kidney failure with tubular necrosis; G93.41 Metabolic encephalopathy; J18.9 Pneumonia, unspecified organism; K85.90 Acute pancreatitis without necrosis or infection, unspecified; E87.0 Hyperosmolality and hypernatremia; I82.619 Acute embolism and thrombosis of superficial veins of unspecified upper extremity; E87.6 Hypokalemia; E87.8 Other disorders of electrolyte and fluid balance, not elsewhere classified; E86.0 Dehydration; E78.1 Pure hyperglyceridemia; R19.7 Diarrhea, unspecified; D69.6 Thrombocytopenia, unspecified; E78.00 Pure hypercholesterolemia, unspecified; R60.0 Localized edema; E87.70 Fluid overload, unspecified; E78.5 Hyperlipidemia, unspecified; Z79.4 Long term (current) use of insulin; Z86.13 Personal history of malaria
CPT/HCPCS: 36600; 70450; 71010; 71020; 74177; 80048; 80053; 80061; 80307; 81001; 82010; 82436; 82550; 82570; 82805; 82948; 83036; 83605; 83690; 83735; 83930; 84100; 84132; 84133; 84155; 84300; 84443; 84478; 85007; 85025; 85027; 85610; 87040; 87070; 87205; 87449; 87493; 87641; 87804; 93005; 93970; 94002; 94003; 94150; 96361; 96374; 96375; C9113; J0456; J1644; J1815; J1817; J1940; J2270; J2405; J2543; J3010; J3370; J3475; J3480; J7030; J7042; J7050; J7120; Q9967